=== PATIENT | male | born 1960 | race Caucasian/White ===

== ENCOUNTER 2017-10-27 15:08 | Emergency (ER) | payer MEDICARE ==
[2017-10-27] MEDS ORDERED: SODIUM CHLORIDE 0.9% 1,000 ML IV ONE (16:09)
--- NOTE | 2017-10-27 16:11 | ED Physician Documentation ---
History of Present Illness - Stated complaint Stated Complaint: COUGHING UP BLOOD - Chief complaint Chief Complaint: Resp - History obtained from History obtained from: Patient - History of Present Illness Timing: Today Pain level max: 0 Pain level now: 0 Improved by: rest Worsened by: coughing - Additonal information Additional information: Patient is a 57-year-old male who is a smoker who presents to the emergency department with a cough for the past several days, today during a coughing episode coughed up a small amount of bright red blood. States he feels slightly lightheaded. No chest pain. No palpitations. He is out of his Dulera at home and is only using rescue inhalers. Does have COPD. No blood thinners Review of Systems Ten Systems: 10 systems reviewed and negative Constitutional: denies: Fever, Chills Ears: denies: Ear pain Nose: denies: Rhinorrhea / runny nose, Congestion Throat: denies: Sore throat Cardiac: denies: Chest pain / pressure Respiratory: reports: Dyspnea, Cough, Hemoptysis, Wheezing GI: denies: Abdominal Pain, Nausea, Vomiting, Diarrhea Skin: denies: Rash Musculoskeletal: denies: Neck pain, Back pain Neurologic: denies: Headache PD PAST MEDICAL HISTORY - Past Medical History Cardiovascular: Hypertension Respiratory: Shortness of breath Other Past Medical History: Hodgins Disease - Past Surgical History Past Surgical History: Yes General: Splenectomy - Present Medications Home Medications: Ambulatory Orders Medication Instructions Recorded Confirmed Albuterol Sulf [Ventolin Hfa 2 puffs INH Q4HR PRN #1 inhaler 10/27/17 Inhaler] Mometasone/Formoterol [Dulera 100 DAILY 10/27/17 Mcg/5 Mcg Inhaler] predniSONE [Prednisone] 40 mg PO DAILY #10 tablet 10/27/17 - Allergies Allergies/Adverse Reactions: Allergies Allergy/AdvReac Type Severity Reaction Status Date / Time No Known Drug Allergies Allergy Verified 10/27/17 15:30 - Social History Does the pt smoke?: Yes Smoking Status: Current every day smoker Does the pt drink ETOH?: Yes ETOH Use: Beer, Liquor Does the pt have substance abuse?: No - Immunizations Immunizations are current?: Yes - POLST Patient has POLST: No PD ED PE NORMAL - Vitals Vital signs reviewed: Yes - General General: Alert and oriented X 3, No acute distress - HEENT HEENT: Moist mucous membranes - Neck Neck: Supple, no meningeal sign - Cardiac Cardiac: RRR, Strong equal pulses - Respiratory Respiratory: No respiratory distress, Other (wheezing B) - Abdomen Abdomen: Soft, Non tender, Non distended - Derm Derm: Warm and dry - Neuro Neuro: Alert and oriented X 3 - Psych Psych: Normal mood, Normal affect Results - Vitals Vitals: Vital Signs - 24 hr 10/27/17 10/27/17 10/27/17 15:30 16:30 17:22 Temperature 36.9 C 36.9 C Heart Rate 122 H 115 H 112 H Respiratory 20 10 L 18 Rate Blood Pressure 147/99 H 162/114 H O2 Saturation 94 97 Oxygen O2 Source Room air - EKG (time done) 1545 Rate: Rate (enter#) (117) Rhythm: Sinus tachycardia Valier: Normal Intervals: Normal CT QRS: LVH Ischemia: Normal ST segments - Labs Labs: Laboratory Tests 10/27/17 10/27/17 16:55 16:55 WBC 6.6 RBC 4.54 L Hgb 15.5 Hct 47.0 MCV 103.4 H MCH 34.2 H MCHC 33.1 RDW 13.4 Plt Count 307 MPV 7.1 L Neut # 3.9 Lymph # 1.6 [place] # 0.9 Eos # 0.1 Baso # 0.1 Absolute Nucleated RBC 0.01 Nucleated RBC % 0.1 Sodium 137 Potassium 3.7 Chloride 100 L Carbon Dioxide 25 Anion Gap 12.0 BUN 23 H Creatinine 0.8 Estimated GFR (MDRD) 99 Glucose 111 H Calcium 9.5 Total Bilirubin 0.7 AST 48 H ALT 39 Alkaline Phosphatase 61 Total Protein 7.8 Albumin 4.1 Globulin 3.7 Albumin/Globulin Ratio 1.1 Lipase 21 L - Rads (name of study) cxr Radiology: Prelim report reviewed, EMP read contemporaneously, See rad report ( Lungs are hyperexpanded in the craniocaudal measurement. Narrow anterior posterior measurement. No consolidation, pleural effusion or pneumothorax. Prominent pulmonary vasculature and lung markings, could be due to the narrow anterior posterior diameter of the chest. Mild interstitial pulmonary edema or infectious/inflammatory process not excluded. 7 mm left upper lobe pulmonary nodule. Follow-up chest x-ray or chest CT recommended. ) PD MEDICAL DECISION MAKING - ED course Complexity details: reviewed results, re-evaluated patient, considered differential, d/w patient ED course: Patient is a 57-year-old male who presents to the emergency department with what appears to be a COPD flare. He is well-appearing, nontoxic. Afebrile. Feels better after nebulizer treatment here. Does have a small pulmonary nodule and will have him follow-up with his doctor for repeat evaluation of this. Patient states understanding of the need for follow-up. Will place on steroids for home and see how he progresses. No hemoptysis in the emergency department. No anemia. Likely shear forces that cause the hemoptysis. Patient counseled regarding signs and symptoms for which I believe and urgent re -evaluation would be necessary. Patient with good understanding of and agreement to plan and is comfortable going home at this time This document was made in part using voice recognition software. While efforts are made to proofread this document, sound alike and grammatical errors may occur. Patient also counseled to stop smoking Departure - Departure Disposition: 01 Home, Self Care Clinical Impression: Hemoptysis, COPD exacerbation Condition: Good Instructions: ED COPD Flare, ED Hemoptysis Follow-Up: your,doctor in 1 week [Other] Prescriptions: Albuterol Sulf [Ventolin Hfa Inhaler] 2 puffs INH Q4HR PRN #1 inhaler PRN Reason: Wheezing predniSONE [Prednisone] 40 mg PO DAILY #10 tablet Comments: Follow up with your doctor for further care. Your xray and labs are normal for you tonight. Discharge Date/Time: 10/27/17 17:32
[2017-10-27] MEDS ORDERED: IPRATROPIUM/ALBUTEROL 3 ML NEB INH STA (16:16)
--- NOTE | 2017-10-27 16:48 | XRAY Report ---
EXAM: CHEST RADIOGRAPHY EXAM DATE: 10/27/2017 04:25 PM. CLINICAL HISTORY: Cough up blood. COMPARISON: None. TECHNIQUE: 2 views. FINDINGS: Lungs are hyperexpanded in the craniocaudal measurement. Narrow anterior posterior measurem ent. No consolidation, pleural effusion or pneumothorax. Prominent pulmonary vasculature and lung mar kings, could be due to the narrow anterior posterior diameter of the chest. Mild interstitial pulmona ry edema or infectious/inflammatory process not excluded. 7 mm left upper lobe pulmonary nodule. IMPRESSION: Lungs are hyperexpanded in the craniocaudal measurement. Narrow anterior posterior measu rement. No consolidation, pleural effusion or pneumothorax. Prominent pulmonary vasculature and lung markings, could be due to the narrow anterior posterior diameter of the chest. Mild interstitial pulm onary edema or infectious/inflammatory process not excluded. 7 mm left upper lobe pulmonary nodule. F ollow-up chest x-ray or chest CT recommended. [facility] Referring Provider Line: [phone] SITE ID: [id number]
[2017-10-27 17:00] LABS: BASOPHILS # (AUTO) 0.1 10^3/uL (0.0-0.1); BASOPHILS % (AUTO) 0.9 %; EOSINOPHILS # (AUTO) 0.1 10^3/uL (0.0-0.7); EOSINOPHILS % (AUTO) 1.5 %; HGB - HEMOGLOBIN 15.5 g/dL (14.0-18.0); LYMPHOCYTES # (AUTO) 1.6 10^3/uL (1.5-3.5); LYMPHOCYTES % (AUTO) 23.7 %; MEAN CORPUSCULAR HEMOGLOBIN 34.2 pg (27.0-31.0); MEAN CORPUSCULAR HGB CONC 33.1 g/dL (32.0-36.0); MEAN CORPUSCULAR VOLUME 103.4 fL (80.0-94.0); MEAN PLATELET VOLUME 7.1 fL (7.4-11.4); MONOCYTES # (AUTO) 0.9 10^3/uL (0.0-1.0); MONOCYTES % (AUTO) 14.2 %; NEUTROPHILS # (AUTO) 3.9 10^3/uL (1.5-6.6); NEUTROPHILS % (AUTO) 59.7 %; PLT - PLATELET COUNT 307 10^3/uL (130-450); RED BLOOD COUNT 4.54 10^6/uL (4.70-6.10); RED CELL DISTRIBUTION WIDTH 13.4 % (12.0-15.0); WHITE BLOOD COUNT 6.6 x10^3/uL (4.8-10.8)
[2017-10-27 17:13] LABS: ALBUMIN 4.1 g/dL (3.2-5.5); ALBUMIN/GLOBULIN RATIO 1.1 (1.0-2.2); BILIRUBIN,TOTAL 0.7 mg/dL (0.2-1.0); CALCIUM 9.5 mg/dL (8.5-10.3); CREATININE 0.8 mg/dL (0.6-1.2); TOTAL PROTEIN 7.8 g/dL (6.7-8.2)
[2017-10-27 17:25] VITALS: BP 162/114
== END 2017-10-27 17:32 | disposition home or self-care (01) ==
LOC: ED 15:08
DX: J44.1 Chronic obstructive pulmonary disease with (acute) exacerbation (principal); R04.2 Hemoptysis; I10 Essential (primary) hypertension; I71.2 Thoracic aortic aneurysm, without rupture; F17.200 Nicotine dependence, unspecified, uncomplicated
CPT/HCPCS: 36415; 71046; 80053; 83690; 85025; 93005; 94640; 99283; 99285; J7620

== ENCOUNTER 2018-09-08 09:34 | Emergency (ER) | payer MEDICARE ==
--- NOTE | 2018-09-08 09:43 | ED Physician Documentation ---
PD HPI CHEST PAIN - Stated complaint Stated Complaint: CHEST PX,FAST HB - Chief complaint Chief Complaint: Cardiac - History obtained from History obtained from: Patient - History of Present Illness Timing - onset: How many weeks ago Timing - onset during: Rest, Light activity. No: Exertion Timing - duration: Minutes Timing - details: Abrupt onset, Waxing and waning (he has had feeling of fast heart rate, not palpitations nor skips per se. This is most commonly while at rest. Lasts few minutes, then rest and improves on) Quality: Aching Location: Substernal, Left chest Radiation: No: Back Improved by: Other (getting up and walking around) Worsened by: Inspiration Associated symptoms: Shortness of air, Nausea, Feeling faint / dizzy, Palpitations Similar symptoms before: Has not had sx before Recently seen: Not recently seen Review of Systems Constitutional: denies: Fever, Chills Nose: denies: Rhinorrhea / runny nose, Congestion Respiratory: denies: Dyspnea, Cough GI: denies: Abdominal Pain, Nausea, Vomiting, Diarrhea, Bloody / black stool Skin: denies: Rash, Lesions Neurologic: denies: Altered mental status Psychiatric: denies: Depressed Endocrine: denies: Weight loss Immunocompromised: denies: Immunocompromised PD PAST MEDICAL HISTORY - Past Medical History Cardiovascular: Hypertension Respiratory: Shortness of breath - Past Surgical History Past Surgical History: Yes General: Splenectomy - Present Medications Home Medications: Ambulatory Orders Medication Instructions Recorded Confirmed Mometasone/Formoterol [Dulera 100 DAILY 10/27/17 Mcg/5 Mcg Inhaler] RX: Albuterol Sulf [Ventolin Hfa 2 puffs INH Q4HR PRN #1 inhaler 10/27/17 Inhaler] RX: predniSONE [Prednisone] 40 mg PO DAILY #10 tablet 10/27/17 RX: diltiaZEM CD [Cardizem Cd] 180 mg PO DAILY #30 capsule 09/08/18 - Allergies Allergies/Adverse Reactions: Allergies Allergy/AdvReac Type Severity Reaction Status Date / Time No Known Drug Allergies Allergy Verified 09/08/18 09:40 - Social History Does the pt smoke?: Yes Smoking Status: Current every day smoker Does the pt drink ETOH?: Yes Does the pt have substance abuse?: No - Immunizations Immunizations are current?: Yes - POLST Patient has POLST: No PD ED PE NORMAL - Vitals Vital signs reviewed: Yes - General General: Alert and oriented X 3, No acute distress, Well developed/nourished - HEENT HEENT: PERRL, Pharynx benign - Neck Neck: Supple, no meningeal sign, No adenopathy, No JVD - Cardiac Cardiac: No murmur, No rub. No: RRR (tachycardic wi) - Respiratory Respiratory: Clear bilaterally - Abdomen Abdomen: Soft, Non tender - Extremities Extremities: Other - Neuro Neuro: Alert and oriented X 3, No motor deficit, No sensory deficit Results - Vitals Vitals: Vital Signs - 24 hr 09/08/18 09/08/18 09/08/18 09:37 10:23 10:33 Heart Rate 125 H 158 H 109 H Respiratory 16 26 H 19 Rate Blood Pressure 185/125 H 141/85 H 156/85 H O2 Saturation 98 96 97 09/08/18 09/08/18 09/08/18 11:07 11:17 11:26 Heart Rate 158 H 105 H 104 H Respiratory 23 16 14 Rate Blood Pressure 126/79 142/80 H 139/78 H O2 Saturation 96 95 96 09/08/18 09/08/18 11:43 13:03 Heart Rate 107 H 102 H Respiratory 14 18 Rate Blood Pressure 148/85 H 143/98 H O2 Saturation 96 98 Oxygen O2 Source Room air - EKG (time done) initial Rate: Rate (enter#) (120s) Rhythm: Sinus tachycardia Carbon: Normal Intervals: Normal [place] QRS: Normal Ischemia: Normal ST segments. No: ST elevation c/w ischemia, ST depression second Rate: Rate (enter#) (170s) Rhythm: SVT Ischemia: Normal ST segments. No: ST elevation c/w ischemia, ST depression - Labs Labs: Laboratory Tests 09/08/18 09/08/18 09/08/18 09:45 09:45 09:45 WBC 5.5 RBC 4.52 L Hgb 16.3 Hct 47.5 MCV 105.1 H MCH 36.0 H MCHC 34.2 RDW 13.1 Plt Count 279 MPV 7.6 Neut # (Auto) 3.2 Lymph # (Auto) 1.3 L [place] # (Auto) 0.7 Eos # (Auto) 0.1 Baso # (Auto) 0.1 Absolute Nucleated RBC 0.01 Nucleated RBC % 0.1 Platelet Morphology RARE GIANT PLATELETS D-Dimer Sodium 136 Potassium 3.9 Chloride 99 L Carbon Dioxide 26 Anion Gap 11.0 BUN 12 Creatinine 0.7 Estimated GFR (MDRD) 115 Glucose 110 H Calcium 9.0 Magnesium 2.1 Total Bilirubin 1.0 AST 91 H ALT 74 H Alkaline Phosphatase 90 Troponin I B-Natriuretic Peptide Total Protein 8.4 H Albumin 4.3 Globulin 4.1 Albumin/Globulin Ratio 1.0 TSH 09/08/18 09/08/18 09/08/18 09:45 09:45 09:45 WBC RBC Hgb Hct MCV MCH MCHC RDW Plt Count MPV Neut # (Auto) Lymph # (Auto) [place] # (Auto) Eos # (Auto) Baso # (Auto) Absolute Nucleated RBC Nucleated RBC % Platelet Morphology D-Dimer Sodium Potassium Chloride Carbon Dioxide Anion Gap BUN Creatinine Estimated GFR (MDRD) Glucose Calcium Magnesium Total Bilirubin AST ALT Alkaline Phosphatase Troponin I < 0.04 B-Natriuretic Peptide 96 Total Protein Albumin Globulin Albumin/Globulin Ratio TSH 3.34 09/08/18 09:45 WBC RBC Hgb Hct MCV MCH MCHC RDW Plt Count MPV Neut # (Auto) Lymph # (Auto) [place] # (Auto) Eos # (Auto) Baso # (Auto) Absolute Nucleated RBC Nucleated RBC % Platelet Morphology D-Dimer < 200.0 L Sodium Potassium Chloride Carbon Dioxide Anion Gap BUN Creatinine Estimated GFR (MDRD) Glucose Calcium Magnesium Total Bilirubin AST ALT Alkaline Phosphatase Troponin I B-Natriuretic Peptide Total Protein Albumin Globulin Albumin/Globulin Ratio TSH PD MEDICAL DECISION MAKING - ED course Complexity details: re-evaluated patient (given adenosine without change. Diltiazem IV slowed heart rate and it returned to sinus tach then down to close to normal. Old chart showing sinus tach as prior heart rate readings. ), considered differential (resting tachycardia which changed to SVT in ED and he had symptoms. Ceiba better with sinus tachy. No change in SVT with adenosine, but did convert back to sinus tach with IV diltiazem. Heart rate slowed to near/ under 100 with repeat dosig. No significant process seen on testing. He says had had normal ECHO 1 1/2 years ago. To follow up with PMD enxt week.), d/w patient Departure - Departure Disposition: 01 Home, Self Care Clinical Impression: Paroxysmal SVT (supraventricular tachycardia), Sinus tachycardia Condition: Stable Record reviewed to determine appropriate education?: Yes Instructions: ED Tachycardia Pat PSVT Follow-Up: Wilfrid Allan MD [Primary Care Provider] - Prescriptions: RX: diltiaZEM CD [Cardizem Cd] 180 mg PO DAILY #30 capsule Comments: Stay well-hydrated with adequate fluids. Use diltiazem 180 mg daily. See if this controls her heart rate and prevents the episodes of the SVT that is presumably the episodes you are having. Follow-up with your primary care next week, call tomorrow for an appointment. Return if worsening symptoms or persistent fast heart rate that does not resolve after brief time at home. Discharge Date/Time: 09/08/18 13:05
[2018-09-08 10:09] LABS: BASOPHILS # (AUTO) 0.1 10^3/uL (0.0-0.1); BASOPHILS % (AUTO) 1.4 %; EOSINOPHILS # (AUTO) 0.1 10^3/uL (0.0-0.7); EOSINOPHILS % (AUTO) 1.8 %; HGB - HEMOGLOBIN 16.3 g/dL (14.0-18.0); LYMPHOCYTES # (AUTO) 1.3 10^3/uL (1.5-3.5); LYMPHOCYTES % (AUTO) 23.9 %; MEAN CORPUSCULAR HGB CONC 34.2 g/dL (32.0-36.0); MEAN CORPUSCULAR VOLUME 105.1 fL (80.0-94.0); MEAN PLATELET VOLUME 7.6 fL (7.4-11.4); MONOCYTES # (AUTO) 0.7 10^3/uL (0.0-1.0); MONOCYTES % (AUTO) 13.5 %; NEUTROPHILS # (AUTO) 3.2 10^3/uL (1.5-6.6); NEUTROPHILS % (AUTO) 59.4 %; PLT - PLATELET COUNT 279 10^3/uL (130-450); RED BLOOD COUNT 4.52 10^6/uL (4.70-6.10); RED CELL DISTRIBUTION WIDTH 13.1 % (12.0-15.0); WHITE BLOOD COUNT 5.5 x10^3/uL (4.8-10.8)
[2018-09-08] MEDS ORDERED: ADENOSINE 6 MG/2 ML VIAL IVP ONE (10:11)
[2018-09-08 10:12] LABS: ALBUMIN 4.3 g/dL (3.2-5.5); CREATININE 0.7 mg/dL (0.6-1.2); TOTAL PROTEIN 8.4 g/dL (6.7-8.2)
[2018-09-08] MEDS ORDERED: SODIUM CHLORIDE 0.9% 1,000 ML IV ONE ×3 (10:17→11:14)
[2018-09-08] MEDS ORDERED: ADENOSINE 6 MG/2 ML VIAL IVP STA ×2 (10:18)
[2018-09-08] MEDS ORDERED: diltiaZEM INJ 5 MG/ML VIAL IVP STA ×3 (10:18→11:14)
[2018-09-08] MEDS ORDERED: diltiaZEM INJ 5 MG/ML VIAL ONE (10:20)
[2018-09-08 10:32] LABS: PLATELET MORPHOLOGY RARE GIANT PLATELETS (NORMAL)
--- NOTE | 2018-09-08 10:42 | XRAY Report ---
Reason: dyspnea; palpitations Procedure Date: 09/08/2018 Accession Number: [id number] / [id number] Procedure: XR - Chest 1 View X-Ray CPT Code: 19374 FULL RESULT: EXAM: CHEST RADIOGRAPHY EXAM DATE: 09/08/2018 10:36 AM. CLINICAL HISTORY: Dyspnea; palpitations. COMPARISON: CHEST 2 VIEW 10/27/2017 4:24 PM. TECHNIQUE: 1 view. FINDINGS: Lungs/Pleura: Stable prominent interstitial markings. No focal opacities evident. No pleural effusion. No pneumothorax. Mediastinum: Within exam limitations, the cardiomediastinal contour is stable. Other: Unchanged appearance of S-shaped thoracic scoliosis, mild. IMPRESSION: Stable exam. [facility]
[2018-09-08] MEDS ORDERED: IOVERSOL 320 100 ML VIAL IVP ONE ×2 (11:48→12:25)
--- NOTE | 2018-09-08 12:43 | CT Report ---
Reason: fast heart rate and some dyspnea Procedure Date: 09/08/2018 Accession Number: [id number] / [id number] Procedure: CT - Chest W/ CPT Code: FULL RESULT: EXAM: CT CHEST EXAM DATE: 09/08/2018 12:20 PM. CLINICAL HISTORY: Fast heart rate and some dyspnea. COMPARISONS: Chest 1 view 09/08/2018 10:27 AM. TECHNIQUE: Routine helical CT imaging was performed through the chest. IV contrast: 72 mL Optiray 320. Reconstructions: Coronal and sagittal. In accordance with CT protocol optimization, one or more of the following dose reduction techniques were utilized for this exam: automated exposure control, adjustment of mA and/or KV based on patient size, or use of iterative reconstructive technique. FINDINGS: Lungs/Pleura: There is thickening of the left apical pleura with a mild amount of associated consolidation. At the right lung apex there is focal pleural thickening, less severe with slightly more pronounced associated consolidation, typical appearance for rounded atelectasis. In keeping with this, both jeremy are retracted upwards. No suspicious mass lesion is seen. There is no consolidation concerning for infectious disease. Lungs are hyperinflated. No pleural effusion or pneumothorax. Mediastinum: No mediastinal lymphadenopathy. No pericardial effusion. Mild concentric left ventricular hypertrophy. Bones: No aggressive osseous lesions. Visualized Abdomen: Unremarkable. Other: None. IMPRESSION: Apical pleural thickening and scant associated pulmonary consolidation, typically due to a scarred adhesion to the pleura. Configuration known as rounded atelectasis. No acute pulmonary disease is detected. [facility]
[2018-09-08 13:04] VITALS: BP 143/98
== END 2018-09-08 13:05 | disposition home or self-care (01) ==
LOC: ED 09:34
DX: I47.1 Supraventricular tachycardia (principal); I10 Essential (primary) hypertension; F17.200 Nicotine dependence, unspecified, uncomplicated
CPT/HCPCS: 36415; 71045; 71260; 80053; 83735; 83880; 84443; 84484; 85025; 85379; 93005; 96361; 96374; 96375; 96376; 99283; 99284; J0153; Q9967

== ENCOUNTER 2018-12-14 12:13 | Emergency (ER) | payer MEDICARE ==
[2018-12-14] MEDS ORDERED: oxyCODONE 5 MG TABLET PO STA (12:51)
[2018-12-14] MEDS ORDERED: THIAMINE 100 MG TABLET PO STA (12:51)
[2018-12-14] MEDS ORDERED: LORazepam 0.5 MG TABLET PO STA (12:51)
--- NOTE | 2018-12-14 12:57 | ED Physician Documentation ---
PD HPI Fall - Stated complaint Stated Complaint: GLF/HEAD AND NECK PX - Chief complaint Chief Complaint: Back Pain - History obtained from History obtained from: Patient - History of Present Illness Mechanism of injury: Other (This is a 58-year-old gentleman who about a week ago was lifting a heavy bag of birdseed out of his car, he slipped on the ice and did not fall but he got andrew very hard and since then has had severe neck and back pain as well as an occipital headache. He also complains of abdominal bloating, dry heaves every morning. Also right shoulder pain. He is an alcoholic, drinks heavily every day. He knows this is a problem and he and his have just committed to quitting drinking together. He does not have a history of alcoholic liver disease.) Review of Systems Ten Systems: 10 systems reviewed and negative Constitutional: denies: Fever, Chills Throat: denies: Dental pain / toothache, Sore throat Cardiac: denies: Chest pain / pressure, Palpitations Respiratory: denies: Dyspnea, Cough PD PAST MEDICAL HISTORY - Past Medical History Past Medical History: Yes Cardiovascular: Hypertension Respiratory: Shortness of breath Psych: Depression, Anxiety - Past Surgical History Past Surgical History: Yes General: Splenectomy Ortho: Spine surgery - Present Medications Home Medications: Ambulatory Orders Medication Instructions Recorded Confirmed Albuterol Sulf [Ventolin Hfa 2 puffs INH Q4HR PRN #1 inhaler 10/27/17 Inhaler] Mometasone/Formoterol [Dulera 100 DAILY 10/27/17 Mcg/5 Mcg Inhaler] predniSONE [Prednisone] 40 mg PO DAILY #10 tablet 10/27/17 diltiaZEM CD [Cardizem Cd] 180 mg PO DAILY #30 capsule 09/08/18 Lorazepam [Ativan] 1 mg PO TID PRN #10 tablet 12/14/18 oxyCODONE [Roxicodone] 5 mg PO Q4-6H PRN #15 tablet 12/14/18 - Allergies Allergies/Adverse Reactions: Allergies Allergy/AdvReac Type Severity Reaction Status Date / Time No Known Drug Allergies Allergy Verified 09/08/18 09:40 - Social History Does the pt smoke?: Yes Smoking Status: Current every day smoker Does the pt drink ETOH?: Yes ETOH Use: Beer, Liquor Does the pt have substance abuse?: No - Immunizations Immunizations are current?: Yes - POLST Patient has POLST: No PD ED PE NORMAL - Vitals Vital signs reviewed: Yes - General General: Alert and oriented X 3, No acute distress, Other (He is slightly shaky) - HEENT HEENT: PERRL, EOMI, Other (Sclera are somewhat icteric) - Neck Neck: Supple, no meningeal sign, Other (He is quite tender in the low and mid C- spine) - Cardiac Cardiac: RRR, No murmur - Respiratory Respiratory: No respiratory distress - Abdomen Abdomen: Soft, Non tender - Back Back: No CVA TTP, Other (Diffusely tender to the thoracic and upper lumbar spine) - Derm Derm: Normal color, Warm and dry - Extremities Extremities: Other (Right shoulder he is mildly tender laterally but he has good range of motion.) - Neuro Neuro: Alert and oriented X 3 Eye Opening: Spontaneous Motor: Obeys Commands Verbal: Oriented GCS Score: 15 - Psych Psych: Normal mood, Normal affect Results - Vitals Vitals: Vital Signs - 24 hr 12/14/18 12:17 Temperature 36.5 C Heart Rate 71 Respiratory 18 Rate Blood Pressure 118/103 H O2 Saturation 94 Oxygen O2 Source Room air - Labs Labs: Laboratory Tests 12/14/18 12/14/18 12/14/18 13:02 13:02 13:02 WBC 3.5 L RBC 4.39 L Hgb 15.9 Hct 45.7 MCV 104.2 H MCH 36.1 H MCHC 34.6 RDW 13.3 Plt Count 199 MPV 8.0 Neut # (Auto) 2.4 Lymph # (Auto) 0.7 L [place] # (Auto) 0.4 Eos # (Auto) 0.0 Baso # (Auto) 0.0 Absolute Nucleated RBC 0.00 Nucleated RBC % 0.1 PT 10.3 INR 0.9 Sodium 136 Potassium 4.1 Chloride 95 L Carbon Dioxide 23 Anion Gap 18.0 H Glucose 124 H Calcium 9.0 - Rads (name of study) CT Head/Cspine/Tspine/Lspine Radiology: EMP read contemporaneously (DJD, atrophy, Old L1 comp frx, NAD) PD MEDICAL DECISION MAKING - ED course ED course: This is a 58-year-old gentleman with history of alcohol abuse who presents with his spinal pain and headache after an injury about a week ago. Imaging was negative for acute process. He looks mildly jaundiced on exam. Unfortunately the lab analyzer was down and I do not have his liver enzymes but presume they will be elevated and he understands the need to quit drinking. He is slightly shaky here and this is treated with Ativan. Departure - Departure Disposition: 01 Home, Self Care Clinical Impression: Alcohol abuse Head injury Qualifiers: Encounter type: initial encounter Qualified Code(s): S09.90XA - Unspecified injury of head, initial encounter Injury of neck Qualifiers: Encounter type: initial encounter Qualified Code(s): S19.9XXA - Unspecified injury of neck, initial encounter Back pain Qualifiers: Back pain location: back pain in unspecified location Chronicity: acute Back pain laterality: midline Qualified Code(s): M54.9 - Dorsalgia, unspecified Condition: Good Record reviewed to determine appropriate education?: Yes Instructions: ED Low Back Pain Injury, Alcoholism, ED Alcohol Abuse, ED Cirrhosis Liver Prescriptions: Lorazepam [Ativan] 1 mg PO TID PRN #10 tablet PRN Reason: Anxiety oxyCODONE [Roxicodone] 5 mg PO Q4-6H PRN #15 tablet PRN Reason: Pain Comments: Call your doctor to arrange a follow-up appointment, make the next available appointment. In the interim, return anytime if worse or if new symptoms develop.
[2018-12-14 13:11] LABS: BASOPHILS % (AUTO) 1.4 %; EOSINOPHILS % (AUTO) 0.5 %; HGB - HEMOGLOBIN 15.9 g/dL (14.0-18.0); LYMPHOCYTES # (AUTO) 0.7 10^3/uL (1.5-3.5); LYMPHOCYTES % (AUTO) 19.7 %; MEAN CORPUSCULAR HEMOGLOBIN 36.1 pg (27.0-31.0); MEAN CORPUSCULAR HGB CONC 34.6 g/dL (32.0-36.0); MEAN CORPUSCULAR VOLUME 104.2 fL (80.0-94.0); MONOCYTES # (AUTO) 0.4 10^3/uL (0.0-1.0); MONOCYTES % (AUTO) 11.5 %; NEUTROPHILS # (AUTO) 2.4 10^3/uL (1.5-6.6); NEUTROPHILS % (AUTO) 66.9 %; PLT - PLATELET COUNT 199 10^3/uL (130-450); RED BLOOD COUNT 4.39 10^6/uL (4.70-6.10); RED CELL DISTRIBUTION WIDTH 13.3 % (12.0-15.0); WHITE BLOOD COUNT 3.5 x10^3/uL (4.8-10.8)
[2018-12-14 13:26] LABS: INR 0.9 (0.8-1.2); PT - PROTHROMBIN TIME 10.3 secs (9.9-12.6)
--- NOTE | 2018-12-14 13:27 | CT Report ---
Reason: back pain/neck pain/DAUGHERTY p fall Procedure Date: 12/14/2018 Accession Number: [id number] / [id number] Procedure: CT - HEAD WO CPT Code: FULL RESULT: EXAM: CT HEAD EXAM DATE: 12/14/2018 01:07 PM. CLINICAL HISTORY: Headache status post trauma during a fall. COMPARISON: None. TECHNIQUE: Multiaxial CT images were obtained from the foramen magnum to the vertex. Reformats: Sagittal and coronal. IV contrast: None. In accordance with CT protocol optimization, one or more of the following dose reduction techniques were utilized for this exam: automated exposure control, adjustment of mA and/or KV based on patient size, or use of iterative reconstructive technique. FINDINGS: Parenchyma: No intraparenchymal hemorrhage. No evidence of mass or mass-effect. Malloy-white differentiation is distinct. No structural anomaly. Extraaxial Spaces: Normal for age. No subdural or epidural collections identified. Ventricles: Normal in size and position. The extra axial CSF spaces are symmetrically prominent, compatible with age appropriate cortical atrophy. Sinuses and Orbits: Imaged paranasal sinuses, orbits and mastoids show no significant abnormality. Bones: No evidence of fracture or calvarial defect. Other: None. IMPRESSION: 1. Age-appropriate cortical atrophy. 2. No calvarial fracture or acute intracranial hemorrhage. [facility]
--- NOTE | 2018-12-14 13:41 | CT Report ---
Reason: back pain/neck pain/DAUGHERTY p fall Procedure Date: 12/14/2018 Accession Number: [id number] / [id number] Procedure: CT - CERVICAL SPINE WO CPT Code: FULL RESULT: EXAM: CT CERVICAL SPINE WITHOUT CONTRAST DATE: 12/14/2018 01:07 PM. HISTORY: Acute neck pain status post trauma during a fall. COMPARISONS: None. TECHNIQUE: Thin-section axial images were acquired of the cervical spine without contrast. Post-processing: Coronal and sagittal reformats. Other: None. In accordance with CT protocol optimization, one or more of the following dose reduction techniques were utilized for this exam: automated exposure control, adjustment of mA and/or KV based on patient size, or use of iterative reconstructive technique. FINDINGS: Alignment: Reversal of the cervical lordosis. No vertebral body subluxation. No scoliosis. Bones: Decreased bone mineralization. No fracture. No focal bone lesion. No congenital vertebral anomaly. Interspace Levels/Facets: Intervertebral disk space narrowing from C2-C3 through C6-C7, inclusive, with endplate sclerosis, subchondral cyst formation and marginal osteophyte formation, compatible with degenerative disk disease. Bilateral facet arthrosis at C2-C3 and facet arthrosis on the left at C3-C4. Musculature: Normal. No fatty atrophy. Other: The paravertebral and prevertebral soft tissues are unremarkable. Chronic atelectasis in both upper lobes. IMPRESSION: 1. No acute cervical spine fracture or subluxation. 2. Reversal of the normal cervical lordosis, degenerative. 3. Multilevel degenerative disk disease with upper cervical spine facet arthrosis. 4. Chronic bilateral upper lobe atelectasis. RADIA
--- NOTE | 2018-12-14 13:46 | CT Report ---
Reason: back pain/neck pain/DAUGHERTY p fall Procedure Date: 12/14/2018 Accession Number: [id number] / [id number] Procedure: CT - LUMBAR SPINE WO CPT Code: FULL RESULT: EXAM: CT LUMBAR SPINE WITHOUT CONTRAST EXAM DATE: 12/14/2018 01:22 PM. CLINICAL HISTORY: Back pain/neck pain/DAUGHERTY p fall. COMPARISONS: None. TECHNIQUE: Thin-section axial images were acquired of the lumbar spine from T12 to S1 without contrast. Post-processing: Coronal and sagittal reformats. Other: None. In accordance with CT protocol optimization, one or more of the following dose reduction techniques were utilized for this exam: automated exposure control, adjustment of mA and/or KV based on patient size, or use of iterative reconstructive technique. FINDINGS: Alignment: No scoliosis or spondylolisthesis. Bones: Lumbar vertebrae. Osteopenia. Prominent anterior compression of L4 with bridging osteophytes extending to L3 and very nearly to L5. No definite acute fracture or other bone lesion. Disk Levels/Facets: Marked disk space narrowing at L5-S1 with vacuum disk phenomena and degenerative changes. Mild disk space narrowing at L3-L4. Other disk spaces well preserved. Generalized degenerative changes. Musculature: Unremarkable. Other: Hypoattenuated liver parenchyma. IMPRESSION: 1. Old L4 compression fracture with bridging to L3 and to L5. 2. Degenerative changes most marked at L5-S1. 3. Fatty liver. RADIA
--- NOTE | 2018-12-14 13:51 | CT Report ---
Reason: back pain/neck pain/DAUGHERTY p fall Procedure Date: 12/14/2018 Accession Number: [id number] / [id number] Procedure: CT - THORACIC SPINE WO CPT Code: FULL RESULT: EXAM: CT THORACIC SPINE WITHOUT CONTRAST EXAM DATE: 12/14/2018 01:22 PM. CLINICAL HISTORY: Acute back pain status post trauma during the fall. COMPARISONS: None. TECHNIQUE: Thin-section axial images were acquired of the thoracic spine from C7 to L1 without contrast. Post-processing: Coronal and sagittal reformats. Other: None. In accordance with CT protocol optimization, one or more of the following dose reduction techniques were utilized for this exam: automated exposure control, adjustment of mA and/or KV based on patient size, or use of iterative reconstructive technique. FINDINGS: Alignment: Upper thoracic levoscoliosis and lower thoracic dextroscoliosis. No vertebral body subluxation. Normal thoracic kyphosis. Bones: Decreased bone mineralization. No fracture. No focal bone lesion. No congenital vertebral anomaly. Disk Levels/Facets: No significant degenerative disk disease or facet arthrosis. Musculature: Normal. No fatty atrophy. Other: Hepatic steatosis. Chronic bilateral upper lobe atelectasis. IMPRESSION: 1. No acute fracture or subluxation. 2. Scoliosis. 3. Decreased bone mineralization. 4. Hepatic steatosis and chronic bilateral upper lobe atelectasis. RADIA
--- NOTE | 2018-12-14 14:14 | XRAY Report ---
Reason: shoulder pain p trauma Procedure Date: 12/14/2018 Accession Number: [id number] / [id number] Procedure: XR - Shoulder 3 View RT CPT Code: FULL RESULT: EXAM: RIGHT SHOULDER RADIOGRAPHY EXAM DATE: 12/14/2018 01:30 PM. CLINICAL HISTORY: Shoulder pain p trauma. COMPARISON: CHEST 1 VIEW 09/08/2018 10:27 AM. TECHNIQUE: 4 views. FINDINGS: Bones: Normal. No fracture or bone lesion. Joints: The glenohumeral and acromioclavicular joints are normal. Soft tissues: The visualized hemithorax is unremarkable. No soft tissue swelling. IMPRESSION: Normal shoulder radiography. [facility]
[2018-12-14 14:26] VITALS: BP 164/86
[2018-12-14 15:27] LABS: ALBUMIN 4.1 g/dL (3.2-5.5); BILIRUBIN,TOTAL 0.8 mg/dL (0.2-1.0); CREATININE 0.7 mg/dL (0.6-1.2); TOTAL PROTEIN 8.4 g/dL (6.7-8.2)
== END 2018-12-14 14:26 | disposition home or self-care (01) ==
LOC: ED 12:13
DX: F10.10 Alcohol abuse, uncomplicated (principal); S09.90XA Unspecified injury of head, initial encounter; S19.9XXA Unspecified injury of neck, initial encounter; W18.49XA Other slipping, tripping and stumbling without falling, initial encounter; M54.9 Dorsalgia, unspecified; I10 Essential (primary) hypertension; F17.200 Nicotine dependence, unspecified, uncomplicated; Z90.81 Acquired absence of spleen
CPT/HCPCS: 36415; 70450; 72125; 72128; 72131; 73030; 80053; 83690; 85025; 85610; 99283; 99284; A9270; 80320

== ENCOUNTER 2019-08-18 09:39 | Day surgery (SDC) | payer MEDICARE ==
[~2019-08-18 09:39] MED LIST: BRIMONIDINE 0.2% OPHTH DROPS 5 ML ONE; BSS/LIDOCAINE/EPINEPHRINE 1 ML SYRINGE ONE; CYCLOPENTOLATE 1% OPHTH DROPS 2 ML ONE; KETOROLAC 0.45% OPHTH DROPS ONE; PHENYLEPHRINE 2.5% OPHTH 2 ML DROPS ONE; PROPARACAINE 0.5% OPHTH DROPS 15 ML ONE; TIMOLOL 0.5% OPHTH DROPS ONE; TRIAMCIN/MOXIFLOX OPHTHALMIC 0.6 ML VIAL IO ONE; VANCOMYCIN OPHTHALMI 8MG/0.8ML 8 MG/0.8 ML SYRINGE IO ONE
[2019-08-18] MEDS ORDERED: MIDAZOLAM 2 MG/2 ML VIAL IVP ONE (09:40)
[2019-08-18] MEDS ORDERED: fentaNYL 100 MCG/2 ML VIAL IVP ONE (09:40)
[2019-08-18] MEDS ORDERED: LACTATED RINGERS 500 ML IV ONE (09:49)
[2019-08-18] MEDS ORDERED: PROPARACAINE 0.5% OPHTH DROPS 15 ML RIGHTEYE ONE ×2 (10:00→10:44)
[2019-08-18] MEDS ORDERED: KETOROLAC 0.45% OPHTH DROPS RIGHTEYE ONE (10:00)
[2019-08-18] MEDS ORDERED: PHENYLEPHRINE 2.5% OPHTH 2 ML DROPS RIGHTEYE ONE (10:00)
[2019-08-18] MEDS ORDERED: CYCLOPENTOLATE 1% OPHTH DROPS 2 ML RIGHTEYE ONE (10:00)
--- NOTE | 2019-08-18 10:13 | ANESTHESIA ---
Pre-Anesthesia VS, & Labs - Diagnosis Right senile combined cataract - Procedure Right phaco with IOL implant Height 5 ft 11 in Body Mass Index 18.8 Home Medications and Allergies Home Medications: Ambulatory Orders diltiaZEM CD [Cardizem Cd] 360 mg PO DAILY 08/17/19 Mometasone/Formoterol [Dulera 100 Mcg/5 Mcg Inhaler] DAILY 10/27/17 diltiaZEM CD [Cardizem Cd] 360 mg PO DAILY 08/17/19 Allergies/Adverse Reactions: Allergies Allergy/AdvReac Type Severity Reaction Status Date / Time No Known Drug Allergies Allergy Verified 09/08/18 09:40 Anes History & Medical History - Medical History Cardiovascular: reports: Hypertension, Arrhythmia, Other Pulmonary: reports: COPD Gastrointestinal: reports: None Urinary: reports: None Musculoskeletal: reports: Osteoarthritis, Chronic back pain Endocrine/Autoimmune: reports: None Skin: reports: None Smoking Status: Current every day smoker - Surgical History General: Splenectomy Orthopedic: Spine surgery
[2019-08-18] MEDS ORDERED: EPINEPHrine 1 MG/ML AMP IVP ONE (10:42)
[2019-08-18] MEDS ORDERED: BRIMONIDINE 0.2% OPHTH DROPS 5 ML OPTH ONE (10:42)
[2019-08-18] MEDS ORDERED: CHONDR SULF/HYALURONATE SYRINGE IO ONE (10:43)
[2019-08-18] MEDS ORDERED: TIMOLOL 0.5% OPHTH DROPS OPTH ONE (10:43)
[2019-08-18] MEDS ORDERED: BSS/LIDOCAINE/EPINEPHRINE 1 ML SYRINGE IO ONE (10:44)
--- NOTE | 2019-08-18 10:47 | ANESTHESIA ---
Pre-Anesthesia VS, & Labs - Diagnosis R senile combined cataract - Procedure R extraction cataract w/IOL Vital Signs: Temp Pulse Resp BP Pulse Ox 37.0 C 118 H 16 104/88 H 94 08/18/19 09:52 08/18/19 09:52 08/18/19 09:52 08/18/19 09:52 08/18/19 09:52 Height 5 ft 10 in Weight (kg) 68 kg Body Mass Index 18.8 - NPO >8 hours Home Medications and Allergies Home Medications: Ambulatory Orders diltiaZEM CD [Cardizem Cd] 360 mg PO DAILY 08/17/19 diltiaZEM CD [Cardizem Cd] 360 mg PO DAILY 08/17/19 Allergies/Adverse Reactions: Allergies Allergy/AdvReac Type Severity Reaction Status Date / Time No Known Drug Allergies Allergy Verified 09/08/18 09:40 Anes History & Medical History - Anesthetic History Anesthesia Complications: reports: No previous complications Family history of Anesthesia Complications: Denies Family history of Malignant Hyperthermia: Denies - Medical History Cardiovascular: reports: Hypertension, Arrhythmia, Other Pulmonary: reports: COPD Gastrointestinal: reports: None Urinary: reports: None Musculoskeletal: reports: Osteoarthritis, Chronic back pain Endocrine/Autoimmune: reports: None Skin: reports: None Smoking Status: Current every day smoker - Surgical History General: Splenectomy Orthopedic: Spine surgery Exam General: Alert, Oriented x3, Cooperative Dental: WNL Mouth Openin Fingerbreadth Neck Mobility: Normal Mallampati classification: II Thyromental Distance: 4-6 cm Respiratory: Lungs clear, Normal breath sounds Cardiovascular: Regular rate Neurological: Normal speech Mental/Cognitive Status: Alert/Oriented X3, Normal for patient Cognitive Status: Within normal limits Plan Anesthesia Type: MAC Consent for Procedure(s) Verified and Reviewed: Yes Code Status: Attempt Resuscitation ASA classification: 2-Mild systemic disease Is this case an emergency?: No
[2019-08-18 11:12] VITALS: BP 119/81
--- NOTE | 2019-08-18 16:21 | OPERATIVE REPORT ---
DATE OF SERVICE: 08/18/2019 Physician: Mahesh Rosa MD PREOPERATIVE DIAGNOSIS: Visually significant cataract, right eye. This was his first cataract surgery. POSTOPERATIVE DIAGNOSIS: Visually significant cataract, right eye. This was his first cataract surgery. PROCEDURE: Phacoemulsification with posterior chamber intraocular lens implant, right eye. SURGEON: Mahesh Rosa MD ANESTHESIA: Monitored anesthesia care. COMPLICATIONS: None. OPERATIVE INDICATIONS: This is a 59-year-old man with progressive vision loss in the right eye due to 2-3+ nuclear sclerotic and 2+ posterior subcapsular cataract. Best corrected visual acuity was 20/100 with glare to 20/800 in the right eye. Indications for surgery are overall decrease in vision, difficulty seeing words on a computer screen, difficulty reading, difficulty seeing words, closed caption or game scores on TV, difficulty seeing street signs, difficulty driving in low light or at night, difficulty driving at night because of headlights from other vehicles, and difficulty with glare or bright lights in any situation. He was consented at length concerning risks and benefits of cataract surgery, after which he expressed a desire to proceed with surgery. OPERATIVE PROCEDURE: The patient was taken to OR #3 and placed under monitored anesthesia care. Surgical timeout was conducted confirming correct patient, correct procedure, and correct surgical site. He was given topical anesthesia, and prepped and draped in the usual sterile fashion. The eye was entered at the 12 and 9 o'clock positions. Intracameral Shugarcaine was injected into the anterior chamber, followed by Viscoat. A continuous-tear curvilinear capsulorrhexis was performed. The nucleus was hydrodissected and phacoemulsified. The cortex was evacuated using automated infusion and aspiration. Provisc was injected in the capsular bag, and a 15.5 diopter intraocular lens inserted in the bag. Approximately 0.25 mL of a mixture of triamcinolone and moxifloxacin was injected transsclerally into the vitreous. An additional 0.55 mL of a mixture of triamcinolone, moxifloxacin and vancomycin was injected subconjunctivally in the superior quadrant for infection and inflammation prophylaxis. I and A was used to evacuate the viscoelastic materials. The eye was inflated to physiologic pressure using balanced salt solution and found to be watertight. The patient was taken from the operating room in good condition and given postoperative instructions. TD: 08/18/2019 10:56 MISHEL
== END 2019-08-18 09:40 | disposition home or self-care (01) ==
LOC: SDS 09:39
PROVIDERS: ATTEND Ophthalmology
PROC: 08RJ3JZ Replacement of Right Lens with Synthetic Substitute, Percutaneous Approach (ICD-10-PCS; principal; 2019-08-18 11:00)
DX: H25.811 Combined forms of age-related cataract, right eye (principal); I10 Essential (primary) hypertension; F17.200 Nicotine dependence, unspecified, uncomplicated; Z85.71 Personal history of Hodgkin lymphoma; Z79.899 Other long term (current) drug therapy; Z86.79 Personal history of other diseases of the circulatory system
CPT/HCPCS: 66984; A9270; J3490; V2632

== ENCOUNTER 2019-11-03 06:38 | Day surgery (SDC) | payer MEDICARE ==
[~2019-11-03 06:38] MED LIST changes: -BRIMONIDINE 0.2% OPHTH DROPS 5 ML ONE; -BSS/LIDOCAINE/EPINEPHRINE 1 ML SYRINGE ONE; -TIMOLOL 0.5% OPHTH DROPS ONE; -TRIAMCIN/MOXIFLOX OPHTHALMIC 0.6 ML VIAL IO ONE; -VANCOMYCIN OPHTHALMI 8MG/0.8ML 8 MG/0.8 ML SYRINGE IO ONE
[2019-11-03] MEDS ORDERED: MIDAZOLAM 2 MG/2 ML VIAL IVP ONE (06:39)
[2019-11-03] MEDS ORDERED: LACTATED RINGERS 500 ML IV ONE (06:48)
[2019-11-03] MEDS ORDERED: TIMOLOL 0.5% OPHTH DROPS ONE (06:53)
[2019-11-03] MEDS ORDERED: BRIMONIDINE 0.2% OPHTH DROPS 5 ML ONE (06:53)
[2019-11-03] MEDS ORDERED: VANCOMYCIN OPHTHALMI 8MG/0.8ML 8 MG/0.8 ML SYRINGE IO ONE (06:53)
[2019-11-03] MEDS ORDERED: BSS/LIDOCAINE/EPINEPHRINE 1 ML SYRINGE ONE (06:53)
[2019-11-03] MEDS ORDERED: TRIAMCIN/MOXIFLOX OPHTHALMIC 0.6 ML VIAL IO ONE (06:53)
[2019-11-03] MEDS ORDERED: PHENYLEPHRINE 2.5% OPHTH 2 ML DROPS LEFTEYE ONE (07:10)
[2019-11-03] MEDS ORDERED: KETOROLAC 0.45% OPHTH DROPS LEFTEYE ONE (07:10)
[2019-11-03] MEDS ORDERED: PROPARACAINE 0.5% OPHTH DROPS 15 ML LEFTEYE ONE ×2 (07:10→08:02)
[2019-11-03] MEDS ORDERED: CYCLOPENTOLATE 1% OPHTH DROPS 2 ML LEFTEYE ONE (07:10)
--- NOTE | 2019-11-03 07:53 | ANESTHESIA ---
Pre-Anesthesia VS, & Labs - Diagnosis left combined cataract - Procedure left cataract extraction with IOL Vital Signs: Temp Pulse Resp BP Pulse Ox 36.7 C 110 H 16 117/86 H 95 11/03/19 06:48 11/03/19 06:48 11/03/19 06:48 11/03/19 06:48 11/03/19 06:48 Height 5 ft 10 in Weight (kg) 68.5 kg Body Mass Index 18.8 - NPO >8 hours Home Medications and Allergies diltiaZEM CD [Cardizem Cd] 360 mg PO DAILY 08/17/19 Allergies/Adverse Reactions: Allergies Allergy/AdvReac Type Severity Reaction Status Date / Time No Known Drug Allergies Allergy Verified 11/02/19 15:35 Anes History & Medical History - Anesthetic History Anesthesia Complications: reports: No previous complications Family history of Anesthesia Complications: Denies Family history of Malignant Hyperthermia: Denies - Medical History Cardiovascular: reports: Arrhythmia Pulmonary: reports: COPD Gastrointestinal: reports: None Urinary: reports: None Musculoskeletal: reports: Osteoarthritis, Chronic back pain Endocrine/Autoimmune: reports: None Skin: reports: None Smoking Status: Current every day smoker - Surgical History General: Splenectomy Orthopedic: Spine surgery Exam General: Alert Dental: WNL, Dentures full Upper, Dentures full Lower Neck Mobility: Normal Thyromental Distance: greater than 6 cm Respiratory: Lungs clear Cardiovascular: Regular rate, Normal S1, Normal S2 Plan Anesthesia Type: MAC Consent for Procedure(s) Verified and Reviewed: Yes Code Status: Attempt Resuscitation ASA classification: 2-Mild systemic disease Is this case an emergency?: No
[2019-11-03] MEDS ORDERED: EPINEPHrine 1 MG/ML AMP IVP ONE (08:08)
[2019-11-03] MEDS ORDERED: TIMOLOL 0.5% OPHTH DROPS OPTH ONE (08:08)
[2019-11-03] MEDS ORDERED: BRIMONIDINE 0.2% OPHTH DROPS 5 ML OPTH ONE (08:08)
[2019-11-03] MEDS ORDERED: CHONDR SULF/HYALURONATE SYRINGE IO ONE (08:08)
[2019-11-03] MEDS ORDERED: BSS/LIDOCAINE/EPINEPHRINE 1 ML SYRINGE IO ONE (08:09)
[2019-11-03 08:29] VITALS: BP 125/77
--- NOTE | 2019-11-03 09:17 | OPERATIVE REPORT ---
DATE OF SERVICE: 11/03/2019 Physician: Mahesh Rosa MD PREOPERATIVE DIAGNOSIS: Visually significant cataract, left eye. Cataract surgery was performed on the right eye on 08/18/2019. POSTOPERATIVE DIAGNOSIS: Visually significant cataract, left eye. Cataract surgery was performed on the right eye on 08/18/2019. PROCEDURE: Phacoemulsification with posterior chamber intraocular lens implant, left eye. SURGEON: Maehsh Rosa MD ANESTHESIA: Monitored anesthesia care. COMPLICATIONS: None. OPERATIVE INDICATIONS: This is a 59-year-old man with progressive vision loss in the left eye due to 2+ nuclear sclerotic and trace posterior subcapsular cataract. Best corrected visual acuity was 20/20 with glare to 20/40 in the left eye. He was consented at length concerning risks and benefits of cataract surgery, after which he expressed a desire to proceed with surgery. OPERATIVE PROCEDURE: Patient was taken to OR #3 and placed under monitored anesthesia care and surgical timeout was conducted confirming correct patient, correct procedure, and correct surgical site. He was given topical anesthesia, and prepped and draped in the usual sterile fashion. The eye was entered at the 6 and 3 o'clock positions. Intracameral Shugarcaine was injected into the anterior chamber, followed by Viscoat. A continuous-tear curvilinear capsulorrhexis was performed. The nucleus was hydrodissected and phacoemulsified. The cortex was evacuated using automated infusion and aspiration. Provisc was injected in the capsular bag, and a 15.0 diopter intraocular lens inserted in the bag. I&A was used to evacuate the viscoelastic materials. The eye was inflated to physiologic pressure using balanced salt solution and found to be watertight. Approximately 0.25 mL of a mixture of triamcinolone and moxifloxacin was injected transsclerally into the vitreous into the inferotemporal quadrant. An additional 0.55 mL of a mixture of triamcinolone, moxifloxacin and vancomycin was injected subconjunctivally in the superior quadrant for infection and inflammation prophylaxis. Wound integrity was checked with Weck-Pippa sponges. Patient was taken from the operating room in good condition and given postoperative instructions. TD: 11/03/2019 08:34 MISHEL
== END 2019-11-03 06:39 | disposition home or self-care (01) ==
LOC: SDS 06:38
PROVIDERS: ATTEND Ophthalmology
PROC: 08RK3JZ Replacement of Left Lens with Synthetic Substitute, Percutaneous Approach (ICD-10-PCS; principal; 2019-11-03 08:00)
DX: H25.812 Combined forms of age-related cataract, left eye (principal); I10 Essential (primary) hypertension; I49.9 Cardiac arrhythmia, unspecified; J44.9 Chronic obstructive pulmonary disease, unspecified; F17.200 Nicotine dependence, unspecified, uncomplicated; Z98.41 Cataract extraction status, right eye; Z96.1 Presence of intraocular lens; Z72.89 Other problems related to lifestyle; Z85.71 Personal history of Hodgkin lymphoma; Z79.51 Long term (current) use of inhaled steroids; Z90.49 Acquired absence of other specified parts of digestive tract
CPT/HCPCS: 66984; A9270; J3490; V2632

== ENCOUNTER 2020-10-02 10:42 | Inpatient (IN) | payer MEDICARE ==
--- NOTE | 2020-10-02 12:17 | ED Physician Documentation ---
History of Present Illness - Stated complaint Stated Complaint: SOA/WEAKNESS - Chief complaint Chief Complaint: Resp - History obtained from History obtained from: Patient - History of Present Illness Timing: How many weeks ago (5) - Additonal information Additional information: 60-year-old male presents the emergency department with dyspnea for 4 to 5 weeks time. He reports that he is 1/2 pack/day tobacco user and does have a history of COPD as well as hypertension. For about 5 weeks he has been progressively dyspneic with any exertion as well as orthopnea. He is also developed a cough where he is bringing up lots of fluids. He denies any fevers or leg swelling. He denies chest pain or pressure pressure. He states that about 1 month ago he was on his riding lawnmower and leaning over to his left to picker feeder a rock. As he was leaning over he felt a crack in his left lower rib that has also caused worsening dyspnea, however the worsening dyspnea began PRIOR to this event On initial presentation this gentleman is very tachypneic with respiratory rate in the high 20s. He has normal saturations on room air. It should be noted that he does have a history of Hodgkin's lymphoma nearly 40 years ago. 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 meds: ventolin, cartia XT Review of Systems Constitutional: denies: Fever, Chills Eyes: reports: Reviewed and negative Ears: reports: Reviewed and negative Nose: reports: Reviewed and negative Cardiac: reports: Palpitations. denies: Pedal edema, Calf pain Respiratory: reports: Dyspnea, Cough. denies: Hemoptysis GI: reports: Abdominal Swelling. denies: Nausea, Vomiting, Constipation, Diarrhea, Hematemesis : denies: Dysuria, Frequency Skin: reports: Reviewed and negative Musculoskeletal: reports: Reviewed and negative PD PAST MEDICAL HISTORY - Past Medical History Past Medical History: Yes Cardiovascular: Arrhythmia Respiratory: COPD Neuro: None Endocrine/Autoimmune: None GI: None : None HEENT: None Psych: Depression, Anxiety Musculoskeletal: Osteoarthritis, Chronic back pain Derm: None - Past Surgical History Past Surgical History: Yes General: Splenectomy Ortho: Spine surgery - Present Medications Home Medications: Ambulatory Orders Medication Instructions Recorded Confirmed Albuterol Sulf [Ventolin Hfa 2 puffs INH Q4HR PRN #1 inhaler 10/27/17 10/02/20 Inhaler] diltiaZEM CD [Cardizem Cd] 360 mg PO DAILY 08/17/19 10/02/20 - Allergies Allergies/Adverse Reactions: Allergies Allergy/AdvReac Type Severity Reaction Status Date / Time No Known Drug Allergies Allergy Verified 10/02/20 10:51 - Social History Does the pt smoke?: Yes Smoking Status: Current every day smoker Does the pt drink ETOH?: Yes Does the pt have substance abuse?: No - Immunizations Immunizations are current?: Yes - POLST Patient has POLST: No PD ED PE EXPANDED - General General: Alert, Other (significant dyspnea) - Neck Neck: Supple w/out meningeal sx. No: Adenopathy, No tenderness - Cardiac Cardiac: Tachy, Regular Rhythm, Murmur Present, Cap refill < 2 sec, Other (Weak 1+ pulses radial and pedal bilaterally) - Respiratory Respiratory: Labored, Retractions, Other (Globalized crackles. Diminished breath sounds left lower lung guerrero). No: Wheezing - Abdomen Abdomen: Normal Bowel sounds, Distended. No: Tender to palpation - Derm Derm: Normal color. No: Pale, Rash - Neuro Neuro: Alert and Oriented X 3, CNII-XII intact, Normal gait, Normal finger nose, Normal speech - GCS Eye Opening: Spontaneous Motor: Obeys Commands Verbal: Oriented Total: 15 Results - Vitals Vitals: Vital Signs - 24 hr 10/02/20 10/02/20 10/02/20 10:49 13:02 13:11 Temperature 36.8 C Heart Rate 111 H 114 H Respiratory 22 21 Rate Blood Pressure 129/87 H 146/92 H O2 Saturation 98 98 10/02/20 15:46 Temperature Heart Rate 111 H Respiratory 20 Rate Blood Pressure 133/90 H O2 Saturation 97 Oxygen O2 Source Room air - EKG (time done) 1104 Rate: Rate (enter#) (121) Rhythm: Sinus tachycardia Intervals: Normal UT Ischemia: Non specific changes Compare to prior EKG: Unchanged from prior EKG Computer interpretation: Agree with computer - Labs Labs: Laboratory Tests 10/02/20 10/02/20 10/02/20 12:50 12:50 12:50 WBC 19.2 H RBC 4.57 L Hgb 17.3 Hct 49.9 MCV 109.2 H MCH 37.9 H MCHC 34.7 RDW 14.1 Plt Count 451 H MPV 9.3 Neut # (Auto) 16.0 H Lymph # (Auto) 1.5 Kerr # (Auto) 1.4 H Eos # (Auto) 0.1 Baso # (Auto) 0.1 Absolute Nucleated RBC 0.00 Nucleated RBC % 0.0 PT INR Sodium 132 L Potassium 4.9 Chloride 90 L Carbon Dioxide 29 Anion Gap 13.0 BUN 10 Creatinine 0.8 Estimated GFR (MDRD) 98 Glucose 112 H Lactic Acid Calcium 8.6 Total Bilirubin 1.4 H AST 134 H ALT 58 Alkaline Phosphatase 266 H Troponin I High Sens 23.2 H* B-Natriuretic Peptide Total Protein 7.2 Albumin 3.0 L Globulin 4.2 Albumin/Globulin Ratio 0.7 L Lipase 23 Nasal Adenovirus (PCR) Nasal B. parapertussis DNA (PCR) Nasal Coronavir 229E PCR Nasal Coronavir HKU1 PCR Nasal Coronavir NL63 PCR Nasal Coronavir OC43 PCR Nasal Enterovir/Rhinovir PCR Nasal Influenza B PCR Nasal Influenza A PCR Nasal Parainfluen 1 PCR Nasal Parainfluen 2 PCR Nasal Parainfluen 3 PCR Nasal Parainfluen 4 PCR Nasal RSV (PCR) Nasal B.pertussis DNA PCR Nasal C.pneumoniae (PCR) Bebeto Human Metapneumo PCR Nasal M.pneumoniae (PCR) Nasal SARS-CoV-2 (PCR) 10/02/20 10/02/20 10/02/20 12:50 12:50 12:50 WBC RBC Hgb Hct MCV MCH MCHC RDW Plt Count MPV Neut # (Auto) Lymph # (Auto) Kerr # (Auto) Eos # (Auto) Baso # (Auto) Absolute Nucleated RBC Nucleated RBC % PT 12.9 H INR 1.2 Sodium Potassium Chloride Carbon Dioxide Anion Gap BUN Creatinine Estimated GFR (MDRD) Glucose Lactic Acid 2.9 H Calcium Total Bilirubin AST ALT Alkaline Phosphatase Troponin I High Sens B-Natriuretic Peptide 239 H Total Protein Albumin Globulin Albumin/Globulin Ratio Lipase Nasal Adenovirus (PCR) Nasal B. parapertussis DNA (PCR) Nasal Coronavir 229E PCR Nasal Coronavir HKU1 PCR Nasal Coronavir NL63 PCR Nasal Coronavir OC43 PCR Nasal Enterovir/Rhinovir PCR Nasal Influenza B PCR Nasal Influenza A PCR Nasal Parainfluen 1 PCR Nasal Parainfluen 2 PCR Nasal Parainfluen 3 PCR Nasal Parainfluen 4 PCR Nasal RSV (PCR) Nasal B.pertussis DNA PCR Nasal C.pneumoniae (PCR) Bebeto Human Metapneumo PCR Nasal M.pneumoniae (PCR) Nasal SARS-CoV-2 (PCR) 10/02/20 10/02/20 13:05 14:17 WBC RBC Hgb Hct MCV MCH MCHC RDW Plt Count MPV Neut # (Auto) Lymph # (Auto) Kerr # (Auto) Eos # (Auto) Baso # (Auto) Absolute Nucleated RBC Nucleated RBC % PT INR Sodium Potassium Chloride Carbon Dioxide Anion Gap BUN Creatinine Estimated GFR (MDRD) Glucose Lactic Acid Calcium Total Bilirubin AST ALT Alkaline Phosphatase Troponin I High Sens 21.8 H* B-Natriuretic Peptide Total Protein Albumin Globulin Albumin/Globulin Ratio Lipase Nasal Adenovirus (PCR) NOT DETECTED Nasal B. parapertussis DNA (PCR) NOT DETECTED Nasal Coronavir 229E PCR NOT DETECTED Nasal Coronavir HKU1 PCR NOT DETECTED Nasal Coronavir NL63 PCR NOT DETECTED Nasal Coronavir OC43 PCR NOT DETECTED Nasal Enterovir/Rhinovir PCR NOT DETECTED Nasal Influenza B PCR NOT DETECTED Nasal Influenza A PCR NOT DETECTED Nasal Parainfluen 1 PCR NOT DETECTED Nasal Parainfluen 2 PCR NOT DETECTED Nasal Parainfluen 3 PCR NOT DETECTED Nasal Parainfluen 4 PCR NOT DETECTED Nasal RSV (PCR) NOT DETECTED Nasal B.pertussis DNA PCR NOT DETECTED Nasal C.pneumoniae (PCR) NOT DETECTED Bebeto Human Metapneumo PCR NOT DETECTED Nasal M.pneumoniae (PCR) NOT DETECTED Nasal SARS-CoV-2 (PCR) NOT DETECTED - Rads (name of study) CXR Radiology: Final report received (Nondisplaced left lateral 10th rib fracture. Costophrenic angle blunting bilaterally suggestive of minimal effusions. Mildly increased vascularity is present suggestive of edema.) CT angio pulm Radiology: Final report received (Acute pulmonary emboli identified in the basilar segments of the bilateral lower lobe proximal segmental branches the right middle lobe and likely small proximal segmental pulmonary emboli in the bilateral upper lobes. ), See rad report CT abd Radiology: Final report received (Small moderate amount of scattered free fluid seen throughout the abdomen. Colonic diverticulosis without diverticulitis. Hepatic steatosis. 1.5 cm right hepatic lobe hypodensity which is incompletely characterized), See rad report PD MEDICAL DECISION MAKING - ED course Complexity details: reviewed results, re-evaluated patient, considered differential, d/w patient ED course: 60-year-old male presents the emergency department with 5 weeks of dyspnea and orthopnea. On exam he is quite tachypneic and labored. However he does have normal saturations on room air. He is noted to be tachycardic with a heart rate in the 120s sinus. He is taking diltiazem daily but has very poor rate control. X-ray of his lungs does show a nondisplaced left lower lateral rib fracture but no pneumothorax. There are small bilateral pleural effusions as well as vascular findings suggestive of pulmonary edema. 1400: Noted marked leukocytosis. Blood cultures are pending however we will also order a CT angio of the chest as well as abdomen pelvis. He does have a mildly elevated lactic acid but is normotensive and does not present as septic shock however sepsis is not ruled out. We will start with broad-spectrum antibiotics including vancomycin and Zosyn and change as necessary. 1535: CT pulmonary angiogram does confirm that this gentleman has multiple bilateral pulmonary emboli. There are also a number of associated incidental findings within the lungs and abdominal CT. - 1615: I have spoken on the phone with [facility] Physician Dr. Kia Lu. We have discussed the case; he is reaching out to [facility] to determine if a echocardiogram is indicated at this time for further evaluation and treatment of the pulmonary embolus 1630: I have spoken with Dr. Lu. He has reached out to the [facility] on-call personnel and payroll technician Dr. Quirino Mendosa. I am as the CT pulmonary angio does not show signs of acute right heart strain and the patient has had symptoms for nearly 5 weeks and urgent echo in the next 48 hours is not likely indicated. This case was discussed with the daytime hospitalist Dr. Xavier who agrees to bring the patient in for further evaluation and treatment of his pulmonary embolus Departure - Departure Disposition: 66 [facility] DC/Xfer Clinical Impression: Pulmonary embolus Qualifiers: Pulmonary embolism type: multiple subsegmental (without acute cor pulmonale) Qualified Code(s): I26.94 - Multiple subsegmental pulmonary emboli without acute cor pulmonale
--- NOTE | 2020-10-02 12:22 | XRAY Report ---
PROCEDURE: Ribs w/PA Chest LT INDICATIONS: left rib pain TECHNIQUE: 3 views of the left ribs were acquired, along with a single view chest. COMPARISON: Chest x-ray 09/08/2018 FINDINGS: Surgical changes and devices: None. Bones and chest wall: Nondisplaced inferior lateral left 10th rib fracture.. No suspicious bony lesi ons. Overlying soft tissues appear unremarkable. Lungs and pleura: There is blunting of the costophrenic angles bilaterally. Mild increased vascularit y is present. Mediastinum: Mediastinal contours appear normal. Heart size is normal. IMPRESSION: Nondisplaced lateral left 10th rib fracture. Costophrenic angle blunting bilaterally suggestive of minimal effusions. Mild increased vascularity i s present suggestive of edema. Reviewed by: Nora Grady MD on 10/02/2020 12:21 PM PST Approved by: Nora Grady MD on 10/02/2020 12:21 PM PST Station ID: [id number]
[2020-10-02 13:00] LABS: BASOPHILS # (AUTO) 0.1 10^3/uL (0.0-0.1); BASOPHILS % (AUTO) 0.7 %; EOSINOPHILS # (AUTO) 0.1 10^3/uL (0.0-0.7); EOSINOPHILS % (AUTO) 0.4 %; HGB - HEMOGLOBIN 17.3 g/dL (14.0-18.0); LYMPHOCYTES # (AUTO) 1.5 10^3/uL (1.5-3.5); LYMPHOCYTES % (AUTO) 7.8 %; MEAN CORPUSCULAR HEMOGLOBIN 37.9 pg (27.0-31.0); MEAN CORPUSCULAR HGB CONC 34.7 g/dL (32.0-36.0); MEAN CORPUSCULAR VOLUME 109.2 fL (80.0-94.0); MEAN PLATELET VOLUME 9.3 fL (7.4-11.4); MONOCYTES # (AUTO) 1.4 10^3/uL (0.0-1.0); MONOCYTES % (AUTO) 7.2 %; NEUTROPHILS % (AUTO) 83.3 %; PLT - PLATELET COUNT 451 10^3/uL (130-450); RED BLOOD COUNT 4.57 10^6/uL (4.70-6.10); RED CELL DISTRIBUTION WIDTH 14.1 % (12.0-15.0); WHITE BLOOD COUNT 19.2 x10^3/uL (4.8-10.8)
[2020-10-02] MEDS ORDERED: diltiaZEM INJ 5 MG/ML VIAL IVP STA (13:05)
[2020-10-02 13:14] LABS: ALBUMIN/GLOBULIN RATIO 0.7 (1.0-2.2); BILIRUBIN,TOTAL 1.4 mg/dL (0.2-1.0); CALCIUM 8.6 mg/dL (8.5-10.3); CREATININE 0.8 mg/dL (0.6-1.2); TOTAL PROTEIN 7.2 g/dL (6.7-8.2)
[2020-10-02] MEDS ORDERED: IOVERSOL 320 100 ML VIAL IVP ONE ×2 (14:06→14:54)
[2020-10-02] MEDS ORDERED: VANCOMYCIN INJ 1.25 GM in SODIUM CHLORIDE 0.9% 500 ML IV STA (14:06)
[2020-10-02] MEDS ORDERED: PIPERACILLIN/TAZOBACTAM 3.375 GM in SODIUM CHLORIDE 0.9% MINIBAG 100 ML IV STA (14:06)
[2020-10-02 14:16] LABS: C. PNEUMONIAE- RESP PCR PANEL NOT DETECTED
[2020-10-02] MEDS ORDERED: VANCOMYCIN INJ 1 GM, VANCOMYCIN INJ 500 MG in SODIUM CHLORIDE 0.9% 500 ML IV STA (14:37)
--- NOTE | 2020-10-02 15:16 | CT Report ---
PROCEDURE: ANGIO CHEST W/WO INDICATIONS: dyspnea CONTRAST: IV CONTRAST: Optiray 320 ml: 100 PO CONTRAST: *NO PO CONTRAST TECHNIQUE: After the administration of intravenous contrast, 2 mm thick sections acquired from the pulmonary api lorena to the posterior costophrenic angles. 3-dimensional maximum intensity projection (MIP) coronal a nd sagittal reformats were then acquired through the thorax. For radiation dose reduction, the follow ing was used: automated exposure control, adjustment of mA and/or kV according to patient size. COMPARISON: Chest radiograph from earlier same day and CT chest dated 09/08/2018 FINDINGS: Image quality: Excellent. Pulmonary arteries: Pulmonary arteries are normal in size. There are bilateral pulmonary emboli invo lving the basal segments of the bilateral lower lobes as well as the proximal segmental branch of the right middle lobe and likely small proximal segmental pulmonary emboli in the bilateral upper lobes. Lungs and pleura: No pneumothorax. Small bilateral pleural effusions. Associated compressive atelecta sis which is most pronounced in the bilateral lung bases and medial left upper lobe. Stable appearanc e of biapical scarring and pleural thickening. New patchy groundglass opacities involving the anterio r right upper lobe and right apex. No septal thickening or nodularity. Central and peripheral airways are patent. Mediastinum: Heart size is normal, without pericardial effusion. Mild atherosclerotic calcifications of the coronary arteries. No mediastinal or hilar adenopathy. Thoracic aorta is normal in caliber and enhancement. Esophagus is normal in caliber, with small hiatal hernia. Bones and chest wall: No suspicious bony lesions. No acute compression fractures. Ribs and thoracic spine appear intact throughout. The thyroid is unremarkable. No axillary or supraclavicular adenop athy. Abdomen: Visualized upper abdominal solid organs appear unremarkable in the early arterial phase of enhancement. Surgical clips in the upper midline abdomen. IMPRESSION: 1. Acute pulmonary emboli identified in the basilar segments of the bilateral lower lobes, proximal s egmental branch of the right middle lobe, and likely small proximal segmental pulmonary emboli in the bilateral upper lobes. No acute right-sided heart strain. 2. Patchy groundglass opacities involving the right upper lobe and right apex which may represent an infectious versus inflammatory process although early pulmonary infarct not excluded. Underlying neop lastic process is also not excluded. Follow-up imaging recommended. 3. Small bilateral pleural effusions with associated compressive atelectasis. 4. Stable biapical pleural thickening/scarring. Findings discussed with Dr. Baird of the ER at 1510 hrs. Reviewed by: Zackary Luna MD on 10/02/2020 3:15 PM PST Approved by: Zackary Luna MD on 10/02/2020 3:15 PM PST Station ID: [id number]
--- NOTE | 2020-10-02 15:27 | CT Report ---
PROCEDURE: Abdomen/Pelvis W INDICATIONS: elevated lactic acid CONTRAST: IV CONTRAST: Optiray 320 ml: 100 PO CONTRAST: *NO PO CONTRAST TECHNIQUE: After the administration of contrast, 5 mm thick sections acquired from the diaphragms to the sym physis. 5 mm thick coronal and sagittal reformats were acquired. For radiation dose reduction, the following was used: automated exposure control, adjustment of mA and/or kV according to patient size . COMPARISON: None. FINDINGS: Image quality: Excellent. ABDOMEN: Lung bases: Small bilateral pleural effusions with associated compressive atelectasis. The lungs are better evaluated on dedicated CT of the chest from earlier same day. Please see separate report for d etails. Solid organs: Diffuse hepatic steatosis with a 1.5 cm right hepatic lobe hypodensity, incompletely ch aracterized. This may represent a cyst versus hemangioma. 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 Free fluid is noted within the splenic fossa. Gallbladder demonstrates mild circumferent ial wall thickening likely related to surrounding free fluid. Multiple surgical clips are noted in th e midline upper abdomen, this is visualized in the daphne hepatis. Biliary system is non dilated. Pa ncreas enhances normally. No adrenal nodules. Kidneys demonstrate normal size and enhancement, with out hydronephrosis. Peritoneum and bowel: Minimal circumferential bowel wall thickening noted near segments adjacent to free fluid. Otherwise, visualized bowel loops demonstrate normal wall thickness and caliber. No free fluid or air. Scattered colonic diverticulosis without acute diverticulitis. Nodes and vessels: No retroperitoneal or mesenteric adenopathy by size criteria. Aorta and inferior vena cava are normal in size. Atherosclerotic calcifications of the abdominal aorta without aneurysm al dilatation. Miscellaneous: No ventral hernias. PELVIS: Genitourinary: Bladder wall thickness is normal. Miscellaneous: No inguinal hernias or adenopathy. Bones: No suspicious bony lesions. Age indeterminate but likely chronic compression fracture deform ity of the L4 vertebral body. Multilevel spondylitic changes throughout the imaged spine but most pro nounced at L5-S1. No acute vertebral body compression fractures. IMPRESSION: 1. Small-moderate amount of scattered free fluid seen throughout the abdomen. No organized fluid erica ection. 2. Colonic diverticulosis without acute diverticulitis. 3. Minimal circumferential wall thickening of the gallbladder favored secondary to adjacent ascites. Similar findings are noted on several segments of bowel demonstrating minimal circumferential wall th ickening. Acute inflammatory/infectious process not excluded if clinically appropriate. 4. Status post splenectomy with fluid noted in the splenic fossa. 5. Hepatic steatosis. 6. A 1.5 cm right hepatic lobe hypodensity which is incompletely characterized. This may represent a cyst versus hemangioma. Recommend further characterization with outpatient CT or MRI (liver mass prot ocol). 7. Small bilateral pleural effusions and compressive atelectasis. Please see separate report for dedi cated imaging of the chest. Reviewed by: Zackary Luna MD on 10/02/2020 3:25 PM PST Approved by: Zackary Luna MD on 10/02/2020 3:25 PM PST Station ID: [id number]
[2020-10-02 16:23] LABS: INR 1.2 (0.8-1.2); PT - PROTHROMBIN TIME 12.9 secs (9.9-12.6)
[2020-10-02] MEDS ORDERED: ENOXAPARIN 60 MG/0.6 ML SYRINGE SUBQ STA (16:32)
[2020-10-02] MEDS ORDERED: ACETAMINOPHEN 325 MG TABLET PO PRN (16:56)
[2020-10-02] MEDS ORDERED: SODIUM CHLORIDE FLUSH 0.9% 10 ML SYRINGE IVP PRN (16:56)
[2020-10-02] MEDS ORDERED: ONDANSETRON 4 MG/2 ML VIAL IVP PRN (16:56)
[2020-10-02] MEDS ORDERED: MORPHINE 2 MG/ML CARPUJECT IVP PRN (16:56)
[2020-10-02] MEDS ORDERED: diltiaZEM CD 180 MG CAPSULE PO SCH (17:03)
--- NOTE | 2020-10-02 17:24 | HISTORY & PHYSICAL EXAMINATION ---
Chief Complaint - Chief Complaint Chief Complaint: SOB History of Present Illness - Admitted From Admitted From:: ER - History Obtained From Records Reviewed: [employer] History obtained from: pt - History of Present Illness HPI Comment/Other: This a 60-year-old male With a past medical history significant for hypertension, COPD, currently smoker, remote Hodgkin lymphoma With radiation and splenectomy who presents the emergency department complain of very dyspnea for 4 to 5 weeks. pt report he had progressively shortness of breath for 4 to 5 weeks with exertion as well as orthopnea. He denies fever, chill but report cough with lots of clear fluid sputum. pt also report he had abdominal pain in the before. He denies chest pain or pressure pressure. He report about 1 month ago when he was on his riding lawnmower and leaning over to his left to clam picker a rock, he felt a crack in his left lower rib which caused his left inferior chest pain, and pain worsening with dyspnea. CXR reveals nondisplaced left lateral 10th rib fracture, Costophrenic angle blunting bilaterally suggestive of minimal effusions and Mildly increased vascularity is present for suggestive of edema. CTA reveals Acute pulmonary emboli identified in the basilar segments of the bilateral lower lobe proximal segmental branches the right middle lobe and likely small proximal segmental pulmonary emboli in the bilateral upper lobes, patchy groundglass opacities involving the right upper lobe and right apex which may represent infectious versus inflammatory process although early Pulmonary infarction not excluded, Neoplastic process is also not excluded. We do not have ECHO study until next week. ER provider talked with [employer], CT pulmonary angio does not show signs of acute right heart strain and the patient has had symptoms for nearly 5 weeks and urgent echo in the next 48 hours is not likely indicated. CT of abdomen/pelvis several segments of the bowel demonstrating minimal circumferential wall thickness, acute inflammation or infection process not excluded. Routine laboratory tests that show elevated WBC at 19, lactic acid of 2.9, elevated liver enzyme, slightly elevated BNP, Slightly elevated troponin but flat. In the ER patient is Afebrile, normative BP, tachypneic with respiratory rate in the high 22s but He has normal saturations on room air And tachycardia around 110-115. Discussed the care goal with the patient, patient requests full code History - Past Medical History Cardiovascular: reports: Arrhythmia Respiratory: reports: COPD Neuro: reports: None Endocrine/Autoimmune: reports: None GI: reports: None : reports: None HEENT: reports: None Psych: reports: Depression, Anxiety Musculoskeletal: reports: Osteoarthritis, Chronic back pain Derm: reports: None MRSA Hx?: No - Past Surgical History General: reports: Splenectomy Ortho: reports: Spine surgery - Family & Social History Family History: Mother: Alive and Well, Father: Alive and Well Family History Comment/Other: Patient reported his father is 86, no major medical issue, still alive. His mother is age 86, no major medical issue as well. Social History Notes: Patient reported he still smoking, he Reported he drive beer every day but without alcohol withdrawal. he denies drug issue. He was and no children. - POLST Patient has POLST: No Meds/Allgy - Home Medications Home Medications: Ambulatory Orders Medication Instructions Recorded Confirmed diltiaZEM CD [Cardizem Cd] 180 mg PO BID 08/17/19 10/02/20 Albuterol Sulf [Ventolin Hfa 2 puffs INH Q6HR PRN 10/02/20 10/02/20 Inhaler] - Allergies Allergies/Adverse Reactions: Allergies Allergy/AdvReac Type Severity Reaction Status Date / Time No Known Drug Allergies Allergy Verified 10/02/20 10:51 Review of Systems - Constitutional Constitutional: denies: Fatigue, Fever, Chills, Malaise, Weakness, Poor appetite, Diaphoresis, Night sweats - Eyes Eyes: denies: Pain, Blurred vision, Field loss, Vision loss, Dipolpia - Ears, Nose & Throat Ears, Nose & Throat: denies: Ear pain, Vertigo, Nosebleeds, Sore throat, Bleed ing gums - Cardiovascular Cariovascular: reports: Exertional dyspnea, Decr. exercise tolerance, Orthopnea. denies: Irregular heart rate, Palpitations, Chest pain, Edema, Lightheadedness, Syncope - Respiratory Respiratory: reports: Cough, Sputum production, Orthopnea, SOB at rest, SOB with exertion. denies: Wheezing, Snoring, Hemoptysis, Apnea, Stridor - Gastrointestinal Gastrointestinal: reports: Abdominal pain. denies: Abdominal distention, Constipation, Diarrhea, Change in bowel habits, Rectal bleeding, Black stools, Bloody stools, Nausea, Vomiting, Nate blood emesis, Coffee grounds emesis - Genitourinary Genitourinary: denies: Dysuria, Urgency, Incontinence - Musculoskeletal Musculoskeletal: denies: Muscle pain, Muscle aches, Limited range of motion, Muscle weakness - Integumentary Integumentary: denies: Rash, Lesions, Lumps - Neurological Neurological: denies: General weakness, Focal weakness, Headache, Dizziness, Numbness, Memory problems, Pre-existing deficit, Abnormal gait, Seizures, Incoordination, Slurred speech - Psychiatric Psychiatric: denies: Depression, Suicidal, Delusions - Endocrine Endocrine: denies: Polyuria, Polyphagia - Hematologic/Lymphatic Hematologic/Lymphatic: denies: Anemia, Petechiae, Blood clots Exam - Vital Signs Vital Signs: Vital Signs x48h Temp Pulse Resp BP Pulse Ox 10/02/20 15:46 111 H 20 133/90 H 97 10/02/20 13:11 114 H 21 146/92 H 98 10/02/20 13:02 98 10/02/20 10:49 36.8 C 111 H 22 129/87 H - Physical Exam General Appearance: positive: Alert, Moderate distress. negative: Lethargic Eyes Bilateral: positive: Normal inspection, PERRL, No lid inflammation ENT: positive: ENT inspection nml, No signs of dehydration. negative: Purulent nasal drainage Neck: positive: Nml inspection, Thyroid nml, Trachea midline. negative: Thyromegaly, Tracheal deviation Respiratory: positive: Chest non-tender, Rhonchi. negative: No respiratory distress, Breath sounds nml, Wheezes, Rales Cardiovascular: positive: Regular rate & rhythm, No murmur, Tachycardia. negative: Bradycardia, Systolic murmur, Diastolic murmur Peripheral Pulses: positive: 2+ Abdomen: positive: Non-tender, No distention, Abnml bowel sounds (mild reduced bowel sound). negative: Tenderness, Guarding, Rebound Back: positive: Nml inspection. negative: CVA tenderness (R), CVA tenderness (L) Skin: positive: Color nml, Warm, Dry. negative: Cyanosis, Diaphoresis, Pallor Extremities: positive: Non-tender, Nml appearance. negative: Calf tenderness Neurologic/Psychiatric: positive: Oriented x3, Motor nml, Sensation nml, Mood/affect nml. negative: Weakness, Sensory loss, Facial droop, Slurred/abnml speech, Depressed mood/affect Conclusion/Plan - Problem List (1) Pulmonary embolus Conclusion/Plan: Patient is very shortness of breathing, CTA show bilaterally pulmonary embolism without right heart strain. Patient has a history of remote Hodgkin lymphoma, Patient is currently Cigarette smoke. Patient has no bilateral lower extremity pain or tenderness or erythema. Plan: Lovenox twice daily, telemetry, vital signs monitor closely. Qualifiers: Pulmonary embolism type: multiple subsegmental (without acute cor pulmonale) Qualified Code(s): I26.94 - Multiple subsegmental pulmonary emboli without acute cor pulmonale (2) SOB (shortness of breath) Conclusion/Plan: Patient presents very short of breathing, Patient has PE, Patient has a history of COPD, current smoker, CTA also indicated pt has pneumonia, and Mild pulmonary congestion. Unfortunately we do not have echo study for patient until next week. At this point we will treat the PE with Lovenox, Zosyn for patient pneumonia, breathing treatment for patient COPD and add prednisone for his COPD, As needed morphine for SOB. (3) Pneumonia Conclusion/Plan: Patient present early shortness of breathing, patient has a cough and sputum, patient has WBC 19 and elevated lactic acid 2.9, CTA indicated patient has pneumonia or infection. at this time we will treat the patient pneumonia With antibiotics Zosyn, patient's blood culture is pending. (4) Abdominal pain Conclusion/Plan: Patient reported he had abdominal pain in the home, CT of abdomen show possible infection/Inflammation and a colon wall thickening, Patient has elevated WBC and elevated lactic acid. We will treat with Zosyn and prednisone, Pain control (5) Elevated liver enzymes Conclusion/Plan: Patient report he drinks beer every day but denies alcohol withdrawal. Advised patient quitt alcohol, and vitamin B-1 was given to patient. In CAT scan of the abdomen show 1.5 cm right hepatic lobe hypodensity which may represent cyst versus hemoangioma. recommend pt for out-pt CT or MRI of liver ma protocol for further feature. 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 patient take Cardizem in his home medication, EKG show sinus tachycardia, Patient denies chest pain, troponin slightly elevated but flat and reduced. 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 (7) COPD (chronic obstructive pulmonary disease) Conclusion/Plan: Patient has a history of COPD and continue cigarette smoking. Lung sounds show diminished with bilaterally crackles. We will give patient breathing treatment, and low dosage prednisone. Patient decline nicotine patch now (8) Rib fracture Conclusion/Plan: Patient report he has injury when he deeply leaned down on his left side to clam picker a stone. chest X-ray show patient has Nondisplaced laterally left 10th rib fracture, Clinically patient report left low lateral chest wall pain, With a small bump In palpitation. Order iincentive spirometer, Encourage patient practice with, Pain control. - Lab Results Fish Bones: 10/03/20 04:15 10/03/20 04:15 Core Measures - Anticipated LOS I expect patient to be DC'd or transferred within 96 hours.: Yes - Stroke - Rehab Assessment Rehab services assessment to be ordered?: Yes - AMI - Statin at Admit Aspirin Prescribed on Admit: Yes
[2020-10-02] MEDS: IPRATROPIUM/ALBUTEROL 3 ML NEB INH PRN (18:30)
[2020-10-02] MEDS: oxyCODONE 5 MG TABLET PO PRN ×2 (18:41→22:47)
[2020-10-02] MEDS: SODIUM CHLORIDE FLUSH 0.9% 10 ML SYRINGE IVP SCH (18:42)
[2020-10-02] MEDS: PIPERACILLIN/TAZOBACTAM 3.375 GM in SODIUM CHLORIDE 0.9% MINIBAG 100 ML IV SCH (18:42)
--- NOTE | 2020-10-02 18:49 | PHARMACY PROGRESS NOTE ---
- Best Possible Medication History Admit Date and Time: 10/02/20 1656 Processed by: Pharmacy Medication History completed: Yes Patient Interview: Completed Secondary Source(s): Physician records, Pharmacy records, Insurance records (PATIENT INTERVIEWED BY MOSS BLEACHER. PATIENT ABLE TO CONFIRM HOME MEDICATIONS. ) As the person ultimately responsible for medication therapy, providers are able to order a medication from an existing home medication list in [facility] via the "Reconcile Routine" prior to Confirmation of that medication by ict customer support officer. Such practice is discouraged except when the physician, in their clinical judgment, deems that a medical need exists for a medication without regard to previous use.
[2020-10-02] MEDS: PRENATAL VITAMIN TABLET PO SCH (19:10)
[2020-10-02] MEDS: THIAMINE 100 MG TABLET PO SCH (19:10)
[2020-10-02] MEDS: SODIUM CHLORIDE 0.9% 250 ML IV PRN (19:12)
[2020-10-02] MEDS: predniSONE 20 MG TABLET PO SCH (20:19)
[2020-10-02] MEDS: ENOXAPARIN 60 MG/0.6 ML SYRINGE SUBQ SCH (22:47)
[2020-10-02] MEDS: LEVALBUTEROL 1.25 MG/3 ML NEB INH PRN ×2 (22:51→23:05)
[2020-10-02 22:54] LABS: GLUCOSE, URINE (UA) NEGATIVE (NEGATIVE); KETONES,URINE (UA) NEGATIVE (NEGATIVE); LEUKOCYTE ESTERASE, URINE NEGATIVE (NEGATIVE); NITRITE,URINE NEGATIVE (NEGATIVE); OCCULT BLOOD,URINE NEGATIVE (NEGATIVE); PH,URINE 6.5 PH (5.0-7.5); PROTEIN,URINE NEGATIVE (NEGATIVE); UROBILINOGEN,URINE 1 (NORMAL) E.U./dL (NORMAL)
[2020-10-02 23:01] LABS: BILIRUBIN,URINE NEGATIVE (NEGATIVE); CLARITY,URINE CLEAR (CLEAR); ICTOTEST,URINE NEGATIVE
[2020-10-03] MEDS: SODIUM CHLORIDE FLUSH 0.9% 10 ML SYRINGE IVP SCH ×3 (00:55→16:15)
[2020-10-03] MEDS: PIPERACILLIN/TAZOBACTAM 3.375 GM in SODIUM CHLORIDE 0.9% MINIBAG 100 ML IV SCH ×3 (03:00→18:55)
[2020-10-03] MEDS: oxyCODONE 5 MG TABLET PO PRN ×4 (03:10→21:08)
[2020-10-03] MEDS: LEVALBUTEROL 1.25 MG/3 ML NEB INH PRN ×2 (03:24→07:34)
[2020-10-03 04:42] LABS: BASOPHILS % (AUTO) 0.2 %; HGB - HEMOGLOBIN 15.4 g/dL (14.0-18.0); LYMPHOCYTES # (AUTO) 0.7 10^3/uL (1.5-3.5); MEAN CORPUSCULAR HEMOGLOBIN 37.6 pg (27.0-31.0); MEAN CORPUSCULAR HGB CONC 34.7 g/dL (32.0-36.0); MEAN CORPUSCULAR VOLUME 108.3 fL (80.0-94.0); MEAN PLATELET VOLUME 9.3 fL (7.4-11.4); MONOCYTES # (AUTO) 0.6 10^3/uL (0.0-1.0); MONOCYTES % (AUTO) 3.4 %; NEUTROPHILS # (AUTO) 15.8 10^3/uL (1.5-6.6); NEUTROPHILS % (AUTO) 91.8 %; PLT - PLATELET COUNT 449 10^3/uL (130-450); RED CELL DISTRIBUTION WIDTH 14.1 % (12.0-15.0); WHITE BLOOD COUNT 17.2 x10^3/uL (4.8-10.8)
[2020-10-03 04:58] LABS: ALBUMIN 2.6 g/dL (3.2-5.5); ALBUMIN/GLOBULIN RATIO 0.7 (1.0-2.2); BILIRUBIN,TOTAL 1.2 mg/dL (0.2-1.0); CALCIUM 8.3 mg/dL (8.5-10.3); CREATININE 0.7 mg/dL (0.6-1.2); TOTAL PROTEIN 6.3 g/dL (6.7-8.2)
[2020-10-03] MEDS: PANTOPRAZOLE 40 MG TABLET PO SCH (06:49)
[2020-10-03] MEDS: PRENATAL VITAMIN TABLET PO SCH (08:03)
[2020-10-03] MEDS: predniSONE 20 MG TABLET PO SCH (08:04)
[2020-10-03] MEDS: ENOXAPARIN 60 MG/0.6 ML SYRINGE SUBQ SCH ×2 (09:25→21:08)
[2020-10-03] MEDS: diltiaZEM CD 180 MG CAPSULE PO SCH ×2 (09:25→21:08)
[2020-10-03] MEDS: THIAMINE 100 MG TABLET PO SCH (09:26)
[2020-10-03] MEDS: IPRATROPIUM/ALBUTEROL 3 ML NEB INH PRN ×2 (13:01→18:23)
--- NOTE | 2020-10-03 13:48 | PROVIDER PROGRESS NOTE ---
Assessment/Plan - Problem List (1) Pulmonary embolus Qualifiers: Pulmonary embolism type: multiple subsegmental (without acute cor pulmonale) Qualified Code(s): I26.94 - Multiple subsegmental pulmonary emboli without acute cor pulmonale Assessment/Plan: 10/03 Patient feels better, significantly improved for patient's difficulty breathing. We will continue treat with Lovenox twice daily. will check if DVT by US Patient is very shortness of breathing, CTA show bilaterally pulmonary embolism without right heart strain. Patient has a history of remote Hodgkin lymphoma, Patient is currently Cigarette smoke. Patient has no bilateral lower extremity pain or tenderness or erythema. Plan: Lovenox twice daily, telemetry, vital signs monitor closely. (2) SOB (shortness of breath) Conclusion/Plan: 10/03 significantly improved, We will continue treated patient's PE, COPD and pneumonia, Add morphine as needed Patient presents very short of breathing, Patient has PE, Patient has a history of COPD, current smoker, CTA also indicated pt has pneumonia, and Mild pulmonary congestion. Unfortunately we do not have echo study for patient until next week. At this point we will treat the PE with Lovenox, Zosyn for patient pneumonia, breathing treatment for patient COPD and add prednisone for his COPD, As needed morphine for SOB. (3) Pneumonia Conclusion/Plan: 10/03 Patient has no fever, Blood culture is pending, Patient's WBC is slightly trended down although pt was given steroid for his COPD. continue antibiotics. Patient present early shortness of breathing, patient has a cough and sputum, patient has WBC 19 and elevated lactic acid 2.9, CTA indicated patient has pneumonia or infection. at this time we will treat the patient pneumonia With antibiotics Zosyn, patient's blood culture is pending. (4) Abdominal pain Conclusion/Plan: 10/03, improved for abdominal pain.Continue antibiotics and Prednisone, pain c ontrol. Patient reported he had abdominal pain in the home, CT of abdomen show possible infection/Inflammation and a colon wall thickening, Patient has elevated WBC and elevated lactic acid. We will treat with Zosyn and prednisone, Pain control (5) Elevated liver enzymes Conclusion/Plan: 10/03 Liver enzyme is trended down, improved. 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 Patient report he drinks beer every day but denies alcohol withdrawal. Advised patient quitt alcohol, and vitamin B-1 was given to patient. In CAT scan of the abdomen show 1.5 cm right hepatic lobe hypodensity which may represent cyst versus hemoangioma. recommend pt for out-pt CT or MRI of liver mass protocol for further feature. 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 HR is trended down to around 100, Continue home medication Cardizem, continue youth nutritional monitor. Patient has history of tachycardia, Patient has PE now plus infection. patient take Cardizem in his home medication, EKG show sinus tachycardia, Patient denies chest pain, troponin slightly elevated but flat and reduced. will resume patient home medication, Continue treat PE and infection, color television console monitor. (7) COPD (chronic obstructive pulmonary disease) Conclusion/Plan: 10/03 Improved, continue breathing treatment and Prednisone. Patient has a history of COPD and continue cigarette smoking. Lung sounds show diminished with bilaterally crackles. We will give patient breathing treatment, and low dosage prednisone. Patient decline nicotine patch now (8) Rib fracture Conclusion/Plan: 10/03 Continue pain control, incentive spirometer. Patient report he has injury when he deeply leaned down on his left side to scrap picker a stone. chest X-ray show patient has Nondisplaced laterally left 10th rib fracture, Clinically patient report left low lateral chest wall pain, With a small bump In palpitation. Order iincentive spirometer, Encourage patient practice with, Pain control. - Current Meds Current Meds: Current Medications Generic Name Dose Route Start Last Admin Trade Name Freq PRN Reason Stop Dose Admin Albuterol/Ipratropium 3 ml 10/02/20 17:08 10/03/20 13:01 Ipratropium/Albuterol 3 Ml Neb INH 3 ml RTQID PRN Administration Shortness of Air/Wheezing Diltiazem HCl 180 mg 10/03/20 09:00 10/03/20 09:25 Diltiazem Cd 180 Mg Capsule PO 180 mg BID TRACE Administration Enoxaparin Sodium 60 mg 10/02/20 23:00 10/03/20 09:25 Enoxaparin 60 Mg/0.6 Ml Syringe SUBQ 60 mg BID TRACE Administration Piperacillin Sod/Tazobactam 100 mls @ 25 mls/hr 10/02/20 19:00 10/03/20 11:04 Sod 3.375 gm/ Sodium Chloride IV 25 mls/hr Q8H TRACE Administration Sodium Chloride 250 mls @ 0 mls/hr 10/02/20 19:06 10/03/20 11:05 Normal Saline 0.9% IV 20 mls/hr Q24H PRN Infusion TKO RATE TKO Levalbuterol HCl 1.25 mg 10/02/20 17:07 10/03/20 07:34 Levalbuterol 1.25 Mg/3 Ml Neb INH 1.25 mg Q4H PRN Administration Shortness of Air/Wheezing Morphine Sulfate 2 mg 10/02/20 16:56 10/03/20 08:04 Morphine 2 Mg/Ml Carpuject IVP 2 mg Q2HR PRN Administration Pain 8 to 10 Oxycodone HCl 5 mg 10/02/20 16:56 10/03/20 13:04 Oxycodone 5 Mg Tablet PO 5 mg Q4HR PRN Administration Pain 5 to 7 Pantoprazole Sodium 40 mg 10/03/20 07:00 10/03/20 06:49 Pantoprazole 40 Mg Tablet PO 40 mg QDAC TRACE Administration Prednisone 40 mg 10/02/20 19:20 10/03/20 08:04 Prednisone 20 Mg Tablet PO 40 mg DAILYWM TRACE Administration Multivit/Folic Acid/Iron 1 tab 10/02/20 19:00 10/03/20 08:03 Vitamin Tablet PO 1 tab DAILYWM TRACE Administration Sodium Chloride 10 ml 10/02/20 17:00 10/03/20 08:06 Sodium Chloride Flush 0.9% 10 Ml Syringe IVP 10 ml 0100,0900,1700 TRACE Administration Thiamine HCl 100 mg 10/02/20 19:01 10/03/20 09:26 Thiamine 100 Mg Tablet PO 100 mg DAILY TRACE Administration - Lab Result Fish Bone Diagrams: 10/03/20 04:15 10/03/20 04:15 - Additional Planning My Orders: My Active Orders 10/02/20 Dinner Regular Diet [DIET] 10/02/20 16:56 Telemetry- [RC] Q4HR Acetaminophen [Tylenol] 650 mg PO Q4HR PRN Morphine Inj (Carpuject) [Morphine (Carpuject)] 2 mg IVP Q2HR PRN Ondansetron Inj [Zofran Inj] 4 mg IVP Q6HR PRN Sodium Chloride Flush 0.9% [Normal Saline Flush 0.9%] 10 ml IVP PRN PRN oxyCODONE [Roxicodone] 5 mg PO Q4HR PRN 10/02/20 16:59 Activity Orders [RC] Q2HR IO [RC] IOSHIFT Initiate Bowel Care Protocol [RC] .protocol Initiate Line Care Protocol [RC] QSHIFT Initiate Personal Care Protoco [RC] .protocol Vital Signs [RC] 0800,1600,0000 Code Status [OTHERS] Routine Condition of Patient [OTHERS] Routine DVT Prophylaxis [OTHERS] Routine 10/02/20 17:00 IV Insert [RC] .ONCE SCDs [RC] QSHIFT Sodium Chloride Flush 0.9% [Normal Saline Flush 0.9%] 10 ml IVP 0100,0900,1700 10/02/20 17:05 Echo Transthoracic Complete [ECHO] Stat 10/02/20 17:07 Levalbuterol [Xopenex] 1.25 mg INH Q4H PRN 10/02/20 17:08 Ipratropium/Albuterol [Duoneb] 3 ml INH RTQID PRN 10/02/20 17:56 Incentive Spirometry - RT [RC] .tid 10/02/20 18:32 RT [Nebulizer/MDI Tx.] [RC] .Q4PRN 10/02/20 19:00 Piperacillin/Tazobactam [Zosyn] 3.375 gm Sodium Chloride 0.9% Minibag [Normal Saline 0.9% Minibag] 100 ml IV Q8H Vitamin [Trinatal Rx 1] 1 tab PO DAILYWM 10/02/20 19:01 Thiamine [Vitamin B-1] 100 mg PO DAILY 10/02/20 19:06 Sodium Chloride 0.9% [Normal Saline 0.9%] 250 ml IV Q24H 10/02/20 19:20 predniSONE [Deltasone] 40 mg PO DAILYWM 10/02/20 23:00 Enoxaparin [Lovenox] 60 mg SUBQ BID 10/03/20 07:00 Pantoprazole [Protonix] 40 mg PO QDAC 10/03/20 09:00 diltiaZEM CD [Cardizem Cd] 180 mg PO BID 10/04/20 05:00 CBC - COMP BLD CT W/AUTO DIFF [HEME] DAILYLAB CMP [COMPREHENSIVE METABOLIC PANEL] [CHEM] DAILYLAB CRP - C-REACTIVE PROTEIN [CHEM] DAILYLAB MAGNESIUM [CHEM] DAILYLAB 10/05/20 05:00 CBC - COMP BLD CT W/AUTO DIFF [HEME] DAILYLAB CMP [COMPREHENSIVE METABOLIC PANEL] [CHEM] DAILYLAB CRP - C-REACTIVE PROTEIN [CHEM] DAILYLAB 10/06/20 05:00 CBC - COMP BLD CT W/AUTO DIFF [HEME] DAILYLAB CMP [COMPREHENSIVE METABOLIC PANEL] [CHEM] DAILYLAB CRP - C-REACTIVE PROTEIN [CHEM] DAILYLAB 10/07/20 05:00 CBC - COMP BLD CT W/AUTO DIFF [HEME] DAILYLAB CMP [COMPREHENSIVE METABOLIC PANEL] [CHEM] DAILYLAB CRP - C-REACTIVE PROTEIN [CHEM] DAILYLAB 10/08/20 05:00 CRP - C-REACTIVE PROTEIN [CHEM] DAILYLAB Subjective - Subjective Patient Reports: Feeling Better Objective Vital Signs: Vital Signs - 24 hr 10/02/20 10/02/20 10/02/20 15:46 17:52 17:59 Temperature 36.8 C 36.5 C Heart Rate 111 H 111 H Heart Rate [ 108 H Brachial] Respiratory 20 22 24 Rate Blood Pressure 133/90 H Blood Pressure 145/81 H [Right Brachial artery] O2 Saturation 97 98 98 10/02/20 10/02/20 10/02/20 18:33 20:56 23:05 Temperature 37.0 C Heart Rate 104 H 101 H Heart Rate [ 103 H Brachial] Respiratory 22 16 20 Rate Blood Pressure Blood Pressure 129/75 [Right Brachial artery] O2 Saturation 93 10/03/20 10/03/20 10/03/20 00:00 03:22 03:50 Temperature 36.6 C 36.4 C L Heart Rate 97 Heart Rate [ 98 98 Brachial] Respiratory 18 20 18 Rate Blood Pressure Blood Pressure 124/82 H 136/80 H [Right Brachial artery] O2 Saturation 92 93 10/03/20 10/03/20 10/03/20 07:34 08:25 12:29 Temperature 36.3 C L 36.2 C L Heart Rate 96 Heart Rate [ 102 H 97 Brachial] Respiratory 20 20 20 Rate Blood Pressure Blood Pressure 124/82 H 118/74 [Right Brachial artery] O2 Saturation 92 92 10/03/20 13:08 Temperature Heart Rate 104 H Heart Rate [ Brachial] Respiratory 20 Rate Blood Pressure Blood Pressure [Right Brachial artery] O2 Saturation Oxygen O2 Source Room air I&O (Last 24 Hrs): Intake and Output Totals x24h 10/01/20 10/02/20 10/03/20 23:59 23:59 23:59 Intake Total 1020 700 Output Total 250 300 Balance 770 400 General: Alert, Oriented x3, Cooperative, No acute distress HEENT: Atraumatic Neck: Supple Lymphatic: no adenopathy Neuro: Alert, Non Focal, Oriented Times 3 Cardiovascular: Regular rate, Normal S1, Normal S2 Respiratory: Chest non-tender Abdomen: Normal bowel sounds, Soft Extremities: Normal pulses - Results Results: Laboratory Results WBC 17.2 x10^3/uL (4.8-10.8) H 10/03/20 04:15 RBC 4.10 10^6/uL (4.70-6.10) L 10/03/20 04:15 Hgb 15.4 g/dL (14.0-18.0) 10/03/20 04:15 Hct 44.4 % (42.0-52.0) 10/03/20 04:15 MCV 108.3 fL (80.0-94.0) H 10/03/20 04:15 MCH 37.6 pg (27.0-31.0) H 10/03/20 04:15 MCHC 34.7 g/dL (32.0-36.0) 10/03/20 04:15 RDW 14.1 % (12.0-15.0) 10/03/20 04:15 Plt Count 449 10^3/uL (130-450) 10/03/20 04:15 MPV 9.3 fL (7.4-11.4) 10/03/20 04:15 Neut # (Auto) 15.8 10^3/uL (1.5-6.6) H 10/03/20 04:15 Lymph # (Auto) 0.7 10^3/uL (1.5-3.5) L 10/03/20 04:15 [place] # (Auto) 0.6 10^3/uL (0.0-1.0) 10/03/20 04:15 Eos # (Auto) 0.0 10^3/uL (0.0-0.7) 10/03/20 04:15 Baso # (Auto) 0.0 10^3/uL (0.0-0.1) 10/03/20 04:15 Absolute Nucleated RBC 0.00 x10^3/uL 10/03/20 04:15 Nucleated RBC % 0.0 /100WBC 10/03/20 04:15 PT 12.9 secs (9.9-12.6) H 10/02/20 12:50 INR 1.2 (0.8-1.2) 10/02/20 12:50 Sodium 133 mmol/L (135-145) L 10/03/20 04:15 Potassium 4.2 mmol/L (3.5-5.0) 10/03/20 04:15 Chloride 97 mmol/L (101-111) L 10/03/20 04:15 Carbon Dioxide 24 mmol/L (21-32) 10/03/20 04:15 Anion Gap 12.0 (6-13) 10/03/20 04:15 BUN 12 mg/dL (6-20) 10/03/20 04:15 Creatinine 0.7 mg/dL (0.6-1.2) 10/03/20 04:15 Estimated GFR (MDRD) 115 (>89) 10/03/20 04:15 Glucose 171 mg/dL (70-100) H 10/03/20 04:15 Lactic Acid 1.2 mmol/L (0.5-2.2) 10/02/20 17:16 Calcium 8.3 mg/dL (8.5-10.3) L 10/03/20 04:15 Total Bilirubin 1.2 mg/dL (0.2-1.0) H 10/03/20 04:15 AST 96 IU/L (10-42) H 10/03/20 04:15 ALT 48 IU/L (10-60) 10/03/20 04:15 Alkaline Phosphatase 211 IU/L (42-121) H 10/03/20 04:15 Troponin I High Sens 21.8 ng/L (2.3-19.7) H* 10/02/20 14:17 C-Reactive Protein 7.2 mg/dL (0-1.0) H 10/03/20 04:15 B-Natriuretic Peptide 239 pg/mL (5-100) H 10/02/20 12:50 Total Protein 6.3 g/dL (6.7-8.2) L 10/03/20 04:15 Albumin 2.6 g/dL (3.2-5.5) L 10/03/20 04:15 Globulin 3.7 g/dL (2.1-4.2) 10/03/20 04:15 Albumin/Globulin Ratio 0.7 (1.0-2.2) L 10/03/20 04:15 Lipase 23 U/L (22-51) 10/02/20 12:50 Urine Color DARK YELLOW 10/02/20 22:41 Urine Clarity CLEAR (CLEAR) 10/02/20 22:41 Urine pH 6.5 PH (5.0-7.5) 10/02/20 22:41 Ur Specific [place] 1.010 (1.002-1.030) 10/02/20 22:41 Urine Protein NEGATIVE mg/dL (NEGATIVE) 10/02/20 22:41 Urine Glucose (UA) NEGATIVE mg/dL (NEGATIVE) 10/02/20 22:41 Urine Ketones NEGATIVE mg/dL (NEGATIVE) 10/02/20 22:41 Urine Occult Blood NEGATIVE (NEGATIVE) 10/02/20 22:41 Urine Nitrite NEGATIVE (NEGATIVE) 10/02/20 22:41 Urine Bilirubin NEGATIVE (NEGATIVE) 10/02/20 22:41 Urine Urobilinogen 1 (NORMAL) E.U./dL (NORMAL) 10/02/20 22:41 Ur Leukocyte Esterase NEGATIVE (NEGATIVE) 10/02/20 22:41 Ur Microscopic Review NOT INDICATED 10/02/20 22:41 Urine Culture Comments NOT INDICATED 10/02/20 22:41 Nasal Adenovirus (PCR) NOT DETECTED 10/02/20 13:05 Nasal B. parapertussis DNA (PCR) NOT DETECTED 10/02/20 13:05 Nasal Coronavir 229E PCR NOT DETECTED 10/02/20 13:05 Nasal Coronavir HKU1 PCR NOT DETECTED 10/02/20 13:05 Nasal Coronavir NL63 PCR NOT DETECTED 10/02/20 13:05 Nasal Coronavir OC43 PCR NOT DETECTED 10/02/20 13:05 Nasal Enterovir/Rhinovir PCR NOT DETECTED 10/02/20 13:05 Nasal Influenza B PCR NOT DETECTED 10/02/20 13:05 Nasal Influenza A PCR NOT DETECTED 10/02/20 13:05 Nasal Parainfluen 1 PCR NOT DETECTED 10/02/20 13:05 Nasal Parainfluen 2 PCR NOT DETECTED 10/02/20 13:05 Nasal Parainfluen 3 PCR NOT DETECTED 10/02/20 13:05 Nasal Parainfluen 4 PCR NOT DETECTED 10/02/20 13:05 Nasal RSV (PCR) NOT DETECTED 10/02/20 13:05 Nasal B.pertussis DNA PCR NOT DETECTED 10/02/20 13:05 Nasal C.pneumoniae (PCR) NOT DETECTED 10/02/20 13:05 [place] Human Metapneumo PCR NOT DETECTED 10/02/20 13:05 Nasal M.pneumoniae (PCR) NOT DETECTED 10/02/20 13:05 Nasal SARS-CoV-2 (PCR) NOT DETECTED 10/02/20 13:05 - Procedures Procedures: Procedures REPLACEMENT OF LEFT LENS WITH SYNTH SUB, PERC APPROACH (11/03/19) REPLACEMENT OF RIGHT LENS WITH SYNTH SUB, PERC APPROACH (08/18/19) ABX Reporting Has patient been on IV antibiotics over the past 48 hours?: Yes Current Medications - Current Medications Current Medications: Active Medications Acetaminophen (Acetaminophen 325 Mg Tablet) 650 mg PO Q4HR PRN PRN Reason: Pain 1 to 4 Albuterol/Ipratropium (Ipratropium/Albuterol 3 Ml Neb) 3 ml INH RTQID PRN PRN Reason: Shortness of Air/Wheezing Last Admin: 10/03/20 13:01 Dose: 3 ml Documented by: Diltiazem HCl (Diltiazem Cd 180 Mg Capsule) 180 mg PO BID [facility] Last Admin: 10/03/20 09:25 Dose: 180 mg Documented by: Enoxaparin Sodium (Enoxaparin 60 Mg/0.6 Ml Syringe) 60 mg SUBQ BID [facility] Last Admin: 10/03/20 09:25 Dose: 60 mg Documented by: Piperacillin Sod/Tazobactam (Sod 3.375 gm/ Sodium Chloride) 100 mls @ 25 mls/hr IV Q8H [facility] Last Admin: 10/03/20 11:04 Dose: 25 mls/hr Documented by: Sodium Chloride (Normal Saline 0.9%) 250 mls @ 0 mls/hr IV Q24H PRN PRN Reason: TKO RATE Last Infusion: 10/03/20 11:05 Dose: 20 mls/hr Documented by: Levalbuterol HCl (Levalbuterol 1.25 Mg/3 Ml Neb) 1.25 mg INH Q4H PRN PRN Reason: Shortness of Air/Wheezing Last Admin: 10/03/20 07:34 Dose: 1.25 mg Documented by: Morphine Sulfate (Morphine 2 Mg/Ml Carpuject) 2 mg IVP Q2HR PRN PRN Reason: Pain 8 to 10 Last Admin: 10/03/20 08:04 Dose: 2 mg Documented by: Ondansetron HCl (Ondansetron 4 Mg/2 Ml Vial) 4 mg IVP Q6HR PRN PRN Reason: Nausea / Vomiting Oxycodone HCl (Oxycodone 5 Mg Tablet) 5 mg PO Q4HR PRN PRN Reason: Pain 5 to 7 Last Admin: 10/03/20 13:04 Dose: 5 mg Documented by: Pantoprazole Sodium (Pantoprazole 40 Mg Tablet) 40 mg PO QDAC [facility] Last Admin: 10/03/20 06:49 Dose: 40 mg Documented by: Prednisone (Prednisone 20 Mg Tablet) 40 mg PO DAILYWM [facility] Last Admin: 10/03/20 08:04 Dose: 40 mg Documented by: Multivit/Folic Acid/Iron ( Vitamin Tablet) 1 tab PO DAILYWM [facility] Last Admin: 10/03/20 08:03 Dose: 1 tab Documented by: Sodium Chloride (Sodium Chloride Flush 0.9% 10 Ml Syringe) 10 ml IVP PRN PRN PRN Reason: NEEDED PER PROVIDER ORDERS Sodium Chloride (Sodium Chloride Flush 0.9% 10 Ml Syringe) 10 ml IVP 0100,0900,1700 [facility] Last Admin: 10/03/20 08:06 Dose: 10 ml Documented by: Thiamine HCl (Thiamine 100 Mg Tablet) 100 mg PO DAILY [facility] Last Admin: 10/03/20 09:26 Dose: 100 mg Documented by: diltiaZEM CD [Cardizem Cd] 180 mg PO BID 08/17/19 Albuterol Sulf [Ventolin Hfa Inhaler] 2 puffs INH Q6HR PRN 10/02/20
[2020-10-04] MEDS: SODIUM CHLORIDE FLUSH 0.9% 10 ML SYRINGE IVP SCH ×4 (00:35→23:16)
[2020-10-04] MEDS: oxyCODONE 5 MG TABLET PO PRN ×5 (00:40→19:13)
[2020-10-04] MEDS: LEVALBUTEROL 1.25 MG/3 ML NEB INH PRN ×3 (00:53→19:45)
[2020-10-04] MEDS: PIPERACILLIN/TAZOBACTAM 3.375 GM in SODIUM CHLORIDE 0.9% MINIBAG 100 ML IV SCH ×3 (02:54→19:19)
[2020-10-04 05:08] LABS: BASOPHILS % (AUTO) 0.2 %; HGB - HEMOGLOBIN 14.5 g/dL (14.0-18.0); LYMPHOCYTES % (AUTO) 5.3 %; MEAN CORPUSCULAR HEMOGLOBIN 37.5 pg (27.0-31.0); MEAN CORPUSCULAR HGB CONC 34.4 g/dL (32.0-36.0); MEAN PLATELET VOLUME 9.4 fL (7.4-11.4); MONOCYTES % (AUTO) 8.3 %; NEUTROPHILS % (AUTO) 85.6 %; PLT - PLATELET COUNT 466 10^3/uL (130-450); RED BLOOD COUNT 3.87 10^6/uL (4.70-6.10); RED CELL DISTRIBUTION WIDTH 14.4 % (12.0-15.0); WHITE BLOOD COUNT 20.8 x10^3/uL (4.8-10.8)
[2020-10-04 05:22] LABS: ALBUMIN 2.7 g/dL (3.2-5.5); ALBUMIN/GLOBULIN RATIO 0.7 (1.0-2.2); CALCIUM 8.5 mg/dL (8.5-10.3); CREATININE 0.6 mg/dL (0.6-1.2); CRP - C-REACTIVE PROTEIN 5.4 mg/dL (0-1.0); MAGNESIUM 2.4 mg/dL (1.7-2.8); TOTAL PROTEIN 6.4 g/dL (6.7-8.2)
[2020-10-04 05:41] LABS: DIFFERENTIAL COMMENT MANUAL DIFFERENTIAL; PLATELET ESTIMATE, MANUAL INCREASED (>450,000) (NORMAL); PLATELET MORPHOLOGY NORMAL APPEARANCE (NORMAL); RBC MORPHOLOGY (MULTIPLE) NORMAL APPEARANCE (NORMAL)
[2020-10-04] MEDS: IPRATROPIUM/ALBUTEROL 3 ML NEB INH PRN ×2 (05:54→10:20)
[2020-10-04] MEDS: PANTOPRAZOLE 40 MG TABLET PO SCH (06:22)
[2020-10-04] MEDS: PRENATAL VITAMIN TABLET PO SCH (07:47)
[2020-10-04] MEDS: predniSONE 20 MG TABLET PO SCH (07:47)
[2020-10-04] MEDS: diltiaZEM CD 180 MG CAPSULE PO SCH ×2 (07:51→20:21)
[2020-10-04] MEDS: ENOXAPARIN 60 MG/0.6 ML SYRINGE SUBQ SCH (07:52)
[2020-10-04] MEDS: THIAMINE 100 MG TABLET PO SCH (07:53)
[2020-10-04] MEDS ORDERED: predniSONE 20 MG TABLET PO SCH (08:00)
[2020-10-04] MEDS: SODIUM CHLORIDE 0.9% 250 ML IV PRN (08:00)
--- NOTE | 2020-10-04 08:41 | XRAY Report ---
PROCEDURE: Chest 1 View X-Ray INDICATIONS: Shortness of breath TECHNIQUE: One view of the chest was acquired. COMPARISON: CT angiogram 10/02/2020 FINDINGS: Surgical changes and devices: None. Lungs and pleura: Small bilateral pleural effusions. Groundglass opacity in the right upper lobe eusebio lar to the comparison CT, nonspecific. Increased interstitial markings in both lungs. Mediastinum: Mediastinal contours appear normal. Heart size is normal. Bones and chest wall: No suspicious bony lesions. Overlying soft tissues appear unremarkable. IMPRESSION: Small bilateral pleural effusions with groundglass opacity in the right upper lobe, not significantly changed from comparison CT. Reviewed by: Toño Dominguez MD on 10/04/2020 8:39 AM PST Approved by: Toño Dominguez MD on 10/04/2020 8:39 AM PST Station ID: [id number]
--- NOTE | 2020-10-04 09:17 | Ultrasound Report ---
PROCEDURE: Duplex Ext Veins Bilateral INDICATIONS: TAHIR MADDOX TECHNIQUE: Real-time imaging, as well as color and pulse Doppler interrogation, were performed of the deep veins of both legs from the inguinal ligament to the popliteal fossa. COMPARISON: FINDINGS: The deep veins are normally compressible, and free of intraluminal thrombus. Color and pu lse Doppler demonstrate normal phasic intravascular flow. There is normal augmentation response to d istal compression maneuver. Portions of the calf veins were not well seen. Presence or absence of chronic thrombus cannot be enti rely excluded. IMPRESSION: Somewhat limited quality of visualization of the calf veins, no definite acute or chronic DVT found. Reviewed by: Daniel Mccauley MD on 10/04/2020 9:15 AM PST Approved by: Daniel Mccauley MD on 10/04/2020 9:15 AM PST Station ID: [id number]
[2020-10-04] MEDS: IPRATROPIUM 0.2 MG/ML NEB INH SCH ×3 (11:43→19:45)
--- NOTE | 2020-10-04 12:30 | PROVIDER PROGRESS NOTE ---
Assessment/Plan - Problem List (1) Pulmonary embolus Qualifiers: Pulmonary embolism type: multiple subsegmental (without acute cor pulmonale) Qualified Code(s): I26.94 - Multiple subsegmental pulmonary emboli without acute cor pulmonale Assessment/Plan: 1224,Clinically patient response to treatment, patient feel shortness breathing is greatly improved. He can walk to the bathroom and come back. We will switch Eliquis after 48 hours of Lovenox. 10/03 Patient feels better, significantly improved for patient's difficulty breathing. We will continue treat with Lovenox twice daily. will check if DVT by US Patient is very shortness of breathing, CTA show bilaterally pulmonary embolism without right heart strain. Patient has a history of remote Hodgkin lymphoma, Patient is currently Cigarette smoke. Patient has no bilateral lower extremity pain or tenderness or erythema. Plan: Lovenox twice daily, telemetry, vital signs monitor closely. (2) SOB (shortness of breath) Conclusion/Plan: 10/04, Good improved, patient can walk to the bathroom and walk back. Continue treat her COPD with breathing treatment, antibiotics for pneumonia, Eliquis for PE. Unfortunately, we do not have echo study for patient in the hospital now. 10/03 significantly improved, We will continue treated patient's PE, COPD and pneumonia, Add morphine as needed Patient presents very short of breathing, Patient has PE, Patient has a history of COPD, current smoker, CTA also indicated pt has pneumonia, and Mild pulmon magalie congestion. Unfortunately we do not have echo study for patient until next week. At this point we will treat the PE with Lovenox, Zosyn for patient pneumonia, breathing treatment for patient COPD and add prednisone for his COPD, As needed morphine for SOB. (3) Pneumonia Conclusion/Plan: 1224,Patient had stable oxygen saturation on room air. Clinically patient does not present respiratory distress now. Patient WBC is slightly up but patient had steroid to treat for his COPD. CRP is trending down. Continue Zosyn. 10/03 Patient has no fever, Blood culture is pending, Patient's WBC is slightly trended down although pt was given steroid for his COPD. continue antibiotics. Patient present early shortness of breathing, patient has a cough and sputum, patient has WBC 19 and elevated lactic acid 2.9, CTA indicated patient has pneumonia or infection. at this time we will treat the patient pneumonia With antibiotics Zosyn, patient's blood culture is pending. (4) Abdominal pain Conclusion/Plan: 122, resolved, patient has no complaint of abdominal pain 10/03, improved for abdominal pain.Continue antibiotics and Prednisone, pain control. Patient reported he had abdominal pain in the home, CT of abdomen show possible infection/Inflammation and a colon wall thickening, Patient has elevated WBC and elevated lactic acid. We will treat with Zosyn and prednisone, Pain control (5) Elevated liver enzymes Conclusion/Plan: 122, liver enzyme is close to normal 10/03 Liver enzyme is trended down, improved. 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 Patient report he drinks beer every day but denies alcohol withdrawal. Advised patient quitt alcohol, and vitamin B-1 was given to patient. In CAT scan of the abdomen show 1.5 cm right hepatic lobe hypodensity which may represent cyst versus hemoangioma. recommend pt for out-pt CT or MRI of liver mass protocol for further feature. Daily scientific laboratory supervisor liver enzyme (6) Sinus tachycardia Conclusion/Plan: 10/04, HR is below 100, resolved. 10/03 improved. 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 Patient has history of tachycardia, Patient has PE now plus infection. patient take Cardizem in his home medication, EKG show sinus tachycardia, Patient denies chest pain, troponin slightly elevated but flat and reduced. will resume patient home medication, Continue treat PE and infection, crosscutter rolled glass. (7) COPD (chronic obstructive pulmonary disease) Conclusion/Plan: 10/03 Improved, continue breathing treatment and Prednisone. Patient has a history of COPD and continue cigarette smoking. Lung sounds show diminished with bilaterally crackles. We will give patient breathing treatment, and low dosage prednisone. Patient decline nicotine patch now (8) Rib fracture Conclusion/Plan: 10/04, Encourage patient to use incentive spirometer, continue pain control 10/03 Continue pain control, incentive spirometer. Patient report he has injury when he deeply leaned down on his left side to nut picker a stone. chest X-ray show patient has Nondisplaced laterally left 10th rib fracture, Clinically patient report left low lateral chest wall pain, With a small bump In palpitation. Order iincentive spirometer, Encourage patient practice with, Pain control. - Current Meds Current Meds: Current Medications Generic Name Dose Route Start Last Admin Trade Name Freq PRN Reason Stop Dose Admin Diltiazem HCl 180 mg 10/03/20 09:00 10/04/20 07:51 Diltiazem Cd 180 Mg Capsule PO 180 mg BID TRACE Administration Piperacillin Sod/Tazobactam 100 mls @ 25 mls/hr 10/02/20 19:00 10/04/20 10:41 Sod 3.375 gm/ Sodium Chloride IV 25 mls/hr Q8H TRACE Administration Sodium Chloride 250 mls @ 0 mls/hr 10/02/20 19:06 10/04/20 10:42 Normal Saline 0.9% IV 0 mls/hr Q24H PRN Infusion TKO RATE TKO Ipratropium [place] 0.5 mg 10/04/20 11:00 10/04/20 11:43 Ipratropium 0.2 Mg/Ml Neb INH Not Given RTQID TRACE Levalbuterol HCl 1.25 mg 10/02/20 17:07 10/04/20 00:53 Levalbuterol 1.25 Mg/3 Ml Neb INH 1.25 mg Q4H PRN Administration Shortness of Air/Wheezing Morphine Sulfate 2 mg 10/02/20 16:56 10/03/20 08:04 Morphine 2 Mg/Ml Carpuject IVP 2 mg Q2HR PRN Administration Pain 8 to 10 Oxycodone HCl 5 mg 10/02/20 16:56 10/04/20 10:20 Oxycodone 5 Mg Tablet PO 5 mg Q4HR PRN Administration Pain 5 to 7 Pantoprazole Sodium 40 mg 10/03/20 07:00 10/04/20 06:22 Pantoprazole 40 Mg Tablet PO 40 mg QDAC TRACE Administration Prednisone 20 mg 10/04/20 08:00 10/04/20 07:47 Prednisone 20 Mg Tablet PO 20 mg DAILYWM TRACE Administration Multivit/Folic Acid/Iron 1 tab 10/02/20 19:00 10/04/20 07:47 Vitamin Tablet PO 1 tab DAILYWM TRACE Administration Sodium Chloride 10 ml 10/02/20 17:00 10/04/20 07:55 Sodium Chloride Flush 0.9% 10 Ml Syringe IVP Not Given 0100,0900,1700 [facility] Thiamine HCl 100 mg 10/02/20 19:01 10/04/20 07:53 Thiamine 100 Mg Tablet PO 100 mg DAILY TRACE Administration - Lab Result Fish Bone Diagrams: 10/04/20 04:36 10/04/20 04:36 - Additional Planning My Orders: My Active Orders 10/04/20 Social Work Consult [CONS] Routine 10/04/20 08:00 predniSONE [Deltasone] 20 mg PO DAILYWM 10/04/20 10:25 Nebulizer/MDI Tx. [RC] QID Resp Teach Nebulizer/MDI [RC] .ONCE 10/04/20 11:00 Ipratropium [Atrovent] 0.5 mg INH RTQID 10/04/20 12:05 Out of bed 4+ hours [RC] QID 10/04/20 21:00 Apixaban [Eliquis] 10 mg PO BID 10/05/20 05:00 CBC - COMP BLD CT W/AUTO DIFF [HEME] DAILYLAB CMP [COMPREHENSIVE METABOLIC PANEL] [CHEM] DAILYLAB CRP - C-REACTIVE PROTEIN [CHEM] DAILYLAB 10/06/20 05:00 CBC - COMP BLD CT W/AUTO DIFF [HEME] DAILYLAB CMP [COMPREHENSIVE METABOLIC PANEL] [CHEM] DAILYLAB CRP - C-REACTIVE PROTEIN [CHEM] DAILYLAB 10/07/20 05:00 CBC - COMP BLD CT W/AUTO DIFF [HEME] DAILYLAB CMP [COMPREHENSIVE METABOLIC PANEL] [CHEM] DAILYLAB CRP - C-REACTIVE PROTEIN [CHEM] DAILYLAB 10/08/20 05:00 CRP - C-REACTIVE PROTEIN [CHEM] DAILYLAB Subjective - Subjective Patient Reports: Feeling Better Objective Vital Signs: Vital Signs - 24 hr 10/03/20 10/03/20 10/03/20 12:29 13:08 15:44 Temperature 36.2 C L 36.3 C L Heart Rate 104 H Heart Rate [ 97 105 H Brachial] Respiratory 20 20 16 Rate Blood Pressure 118/74 132/83 H [Right Brachial artery] O2 Saturation 92 92 10/03/20 10/03/20 10/04/20 18:23 20:11 00:00 Temperature 36.6 C 36.5 C Heart Rate 101 H Heart Rate [ 106 H 110 H Brachial] Respiratory 20 16 18 Rate Blood Pressure 143/87 H 138/54 H [Right Brachial artery] O2 Saturation 93 92 10/04/20 10/04/20 10/04/20 00:55 03:04 05:55 Temperature 36.3 C L Heart Rate 101 H 96 Heart Rate [ 98 Brachial] Respiratory 18 16 18 Rate Blood Pressure 140/82 H [Right Brachial artery] O2 Saturation 92 10/04/20 08:00 Temperature 36.5 C Heart Rate Heart Rate [ 100 Brachial] Respiratory 18 Rate Blood Pressure 142/91 H [Right Brachial artery] O2 Saturation 92 Oxygen O2 Source Room air I&O (Last 24 Hrs): Intake and Output Totals x24h 10/02/20 10/03/20 10/04/20 23:59 23:59 23:59 Intake Total 1020 1456.333 447.667 Output Total 250 300 Balance 770 1156.333 447.667 General: Alert, Oriented x3, Cooperative, No acute distress HEENT: Atraumatic Neck: Supple Lymphatic: no adenopathy Neuro: Alert, Non Focal, Oriented Times 3 Cardiovascular: Regular rate, Normal S1, Normal S2 Respiratory: Chest non-tender, No respiratory distress Abdomen: Normal bowel sounds, Soft, No tenderness Extremities: Normal pulses - Results Results: Laboratory Results WBC 20.8 x10^3/uL (4.8-10.8) H 10/04/20 04:36 RBC 3.87 10^6/uL (4.70-6.10) L 10/04/20 04:36 Hgb 14.5 g/dL (14.0-18.0) 10/04/20 04:36 Hct 42.2 % (42.0-52.0) 10/04/20 04:36 MCV 109.0 fL (80.0-94.0) H 10/04/20 04:36 MCH 37.5 pg (27.0-31.0) H 10/04/20 04:36 MCHC 34.4 g/dL (32.0-36.0) 10/04/20 04:36 RDW 14.4 % (12.0-15.0) 10/04/20 04:36 Plt Count 466 10^3/uL (130-450) H 10/04/20 04:36 MPV 9.4 fL (7.4-11.4) 10/04/20 04:36 Neut # (Auto) Not Reportable 10/04/20 04:36 Lymph # (Auto) Not Reportable 10/04/20 04:36 [place] # (Auto) Not Reportable 10/04/20 04:36 Eos # (Auto) Not Reportable 10/04/20 04:36 Baso # (Auto) Not Reportable 10/04/20 04:36 Absolute Nucleated RBC Not Reportable 10/04/20 04:36 Band Neuts % (Manual) Not Reportable 10/04/20 04:36 Abnorm Lymph % (Manual) Not Reportable 10/04/20 04:36 Nucleated RBC % Not Reportable 10/04/20 04:36 Neutrophils # (Manual) Not Reportable 10/04/20 04:36 Lymphocytes # (Manual) Not Reportable 10/04/20 04:36 Monocytes # (Manual) Not Reportable 10/04/20 04:36 Eosinophils # (Manual) Not Reportable 10/04/20 04:36 Basophils # (Manual) Not Reportable 10/04/20 04:36 Differential Comment MANUAL DIFFERENTIAL 10/04/20 04:36 WBC Morphology NORMAL APPEARANCE (NORMAL) 10/04/20 04:36 Platelet Estimate INCREASED (>450,000) (NORMAL) 10/04/20 04:36 Platelet Morphology NORMAL APPEARANCE (NORMAL) 10/04/20 04:36 RBC Morph Micro Appear NORMAL APPEARANCE (NORMAL) 10/04/20 04:36 PT 12.9 secs (9.9-12.6) H 10/02/20 12:50 INR 1.2 (0.8-1.2) 10/02/20 12:50 Sodium 134 mmol/L (135-145) L 10/04/20 04:36 Potassium 4.0 mmol/L (3.5-5.0) 10/04/20 04:36 Chloride 98 mmol/L (101-111) L 10/04/20 04:36 Carbon Dioxide 25 mmol/L (21-32) 10/04/20 04:36 Anion Gap 11.0 (6-13) 10/04/20 04:36 BUN 16 mg/dL (6-20) 10/04/20 04:36 Creatinine 0.6 mg/dL (0.6-1.2) 10/04/20 04:36 Estimated GFR (MDRD) 137 (>89) 10/04/20 04:36 Glucose 127 mg/dL (70-100) H 10/04/20 04:36 Lactic Acid 1.2 mmol/L (0.5-2.2) 10/02/20 17:16 Calcium 8.5 mg/dL (8.5-10.3) 10/04/20 04:36 Magnesium 2.4 mg/dL (1.7-2.8) 10/04/20 04:36 Total Bilirubin 1.0 mg/dL (0.2-1.0) 10/04/20 04:36 AST 64 IU/L (10-42) H 10/04/20 04:36 ALT 44 IU/L (10-60) 10/04/20 04:36 Alkaline Phosphatase 187 IU/L (42-121) H 10/04/20 04:36 Troponin I High Sens 21.8 ng/L (2.3-19.7) H* 10/02/20 14:17 C-Reactive Protein 5.4 mg/dL (0-1.0) H 10/04/20 04:36 B-Natriuretic Peptide 239 pg/mL (5-100) H 10/02/20 12:50 Total Protein 6.4 g/dL (6.7-8.2) L 10/04/20 04:36 Albumin 2.7 g/dL (3.2-5.5) L 10/04/20 04:36 Globulin 3.7 g/dL (2.1-4.2) 10/04/20 04:36 Albumin/Globulin Ratio 0.7 (1.0-2.2) L 10/04/20 04:36 Lipase 23 U/L (22-51) 10/02/20 12:50 Urine Color DARK YELLOW 10/02/20 22:41 Urine Clarity CLEAR (CLEAR) 10/02/20 22:41 Urine pH 6.5 PH (5.0-7.5) 10/02/20 22:41 Ur Specific [place] 1.010 (1.002-1.030) 10/02/20 22:41 Urine Protein NEGATIVE mg/dL (NEGATIVE) 10/02/20 22:41 Urine Glucose (UA) NEGATIVE mg/dL (NEGATIVE) 10/02/20 22:41 Urine Ketones NEGATIVE mg/dL (NEGATIVE) 10/02/20 22:41 Urine Occult Blood NEGATIVE (NEGATIVE) 10/02/20 22:41 Urine Nitrite NEGATIVE (NEGATIVE) 10/02/20 22:41 Urine Bilirubin NEGATIVE (NEGATIVE) 10/02/20 22:41 Urine Urobilinogen 1 (NORMAL) E.U./dL (NORMAL) 10/02/20 22:41 Ur Leukocyte Esterase NEGATIVE (NEGATIVE) 10/02/20 22:41 Ur Microscopic Review NOT INDICATED 12 22:41 Urine Culture Comments NOT INDICATED 12 22:41 Nasal Adenovirus (PCR) NOT DETECTED 10/02/20 13:05 Nasal B. parapertussis DNA (PCR) NOT DETECTED 10/02/20 13:05 Nasal Coronavir 229E PCR NOT DETECTED 10/02/20 13:05 Nasal Coronavir HKU1 PCR NOT DETECTED 10/02/20 13:05 Nasal Coronavir NL63 PCR NOT DETECTED 10/02/20 13:05 Nasal Coronavir OC43 PCR NOT DETECTED 10/02/20 13:05 Nasal Enterovir/Rhinovir PCR NOT DETECTED 10/02/20 13:05 Nasal Influenza B PCR NOT DETECTED 10/02/20 13:05 Nasal Influenza A PCR NOT DETECTED 10/02/20 13:05 Nasal Parainfluen 1 PCR NOT DETECTED 10/02/20 13:05 Nasal Parainfluen 2 PCR NOT DETECTED 10/02/20 13:05 Nasal Parainfluen 3 PCR NOT DETECTED 10/02/20 13:05 Nasal Parainfluen 4 PCR NOT DETECTED 10/02/20 13:05 Nasal RSV (PCR) NOT DETECTED 10/02/20 13:05 Nasal B.pertussis DNA PCR NOT DETECTED 10/02/20 13:05 Nasal C.pneumoniae (PCR) NOT DETECTED 10/02/20 13:05 [place] Human Metapneumo PCR NOT DETECTED 10/02/20 13:05 Nasal M.pneumoniae (PCR) NOT DETECTED 10/02/20 13:05 Nasal SARS-CoV-2 (PCR) NOT DETECTED 10/02/20 13:05 - Procedures Procedures: Procedures REPLACEMENT OF LEFT LENS WITH SYNTH SUB, PERC APPROACH (11/03/19) REPLACEMENT OF RIGHT LENS WITH SYNTH SUB, PERC APPROACH (08/18/19) ABX Reporting Has patient been on IV antibiotics over the past 48 hours?: Yes Current Medications - Current Medications Current Medications: Active Medications Acetaminophen (Acetaminophen 325 Mg Tablet) 650 mg PO Q4HR PRN PRN Reason: Pain 1 to 4 Apixaban (Apixaban 5 Mg Tablet) 10 mg PO BID [facility] Diltiazem HCl (Diltiazem Cd 180 Mg Capsule) 180 mg PO BID [facility] Last Admin: 10/04/20 07:51 Dose: 180 mg Documented by: Piperacillin Sod/Tazobactam (Sod 3.375 gm/ Sodium Chloride) 100 mls @ 25 mls/hr IV Q8H [facility] Last Admin: 10/04/20 10:41 Dose: 25 mls/hr Documented by: Sodium Chloride (Normal Saline 0.9%) 250 mls @ 0 mls/hr IV Q24H PRN PRN Reason: TKO RATE Last Infusion: 10/04/20 10:42 Dose: 0 mls/hr Documented by: Ipratropium [place] (Ipratropium 0.2 Mg/Ml Neb) 0.5 mg INH RTQID [facility] Last Admin: 10/04/20 11:43 Dose: Not Given Documented by: Levalbuterol HCl (Levalbuterol 1.25 Mg/3 Ml Neb) 1.25 mg INH Q4H PRN PRN Reason: Shortness of Air/Wheezing Last Admin: 10/04/20 00:53 Dose: 1.25 mg Documented by: Morphine Sulfate (Morphine 2 Mg/Ml Carpuject) 2 mg IVP Q2HR PRN PRN Reason: Pain 8 to 10 Last Admin: 10/03/20 08:04 Dose: 2 mg Documented by: Ondansetron HCl (Ondansetron 4 Mg/2 Ml Vial) 4 mg IVP Q6HR PRN PRN Reason: Nausea / Vomiting Oxycodone HCl (Oxycodone 5 Mg Tablet) 5 mg PO Q4HR PRN PRN Reason: Pain 5 to 7 Last Admin: 10/04/20 10:20 Dose: 5 mg Documented by: Pantoprazole Sodium (Pantoprazole 40 Mg Tablet) 40 mg PO QDAC [facility] Last Admin: 10/04/20 06:22 Dose: 40 mg Documented by: Prednisone (Prednisone 20 Mg Tablet) 20 mg PO DAILYWM [facility] Last Admin: 10/04/20 07:47 Dose: 20 mg Documented by: Multivit/Folic Acid/Iron ( Vitamin Tablet) 1 tab PO DAILYWM [facility] Last Admin: 10/04/20 07:47 Dose: 1 tab Documented by: Sodium Chloride (Sodium Chloride Flush 0.9% 10 Ml Syringe) 10 ml IVP PRN PRN PRN Reason: NEEDED PER PROVIDER ORDERS Sodium Chloride (Sodium Chloride Flush 0.9% 10 Ml Syringe) 10 ml IVP 0100,0900,1700 [facility] Last Admin: 10/04/20 07:55 Dose: Not Given Documented by: Thiamine HCl (Thiamine 100 Mg Tablet) 100 mg PO DAILY [facility] Last Admin: 10/04/20 07:53 Dose: 100 mg Documented by: [email or web address] CD [Cardizem Cd] 180 mg PO BID 08/17/19 Albuterol Sulf [Ventolin Hfa Inhaler] 2 puffs INH Q6HR PRN 10/02/20
[2020-10-04] MEDS: SACCHAROMYCES BOULARDII 250 MG CAPSULE PO SCH (16:19)
[2020-10-04] MEDS: APIXABAN 5 MG TABLET PO SCH (20:20)
[2020-10-04] MEDS ORDERED: ENOXAPARIN 60 MG/0.6 ML SYRINGE SUBQ SCH (21:00)
[2020-10-05] MEDS: oxyCODONE 5 MG TABLET PO PRN ×6 (01:12→22:02)
[2020-10-05] MEDS: LEVALBUTEROL 1.25 MG/3 ML NEB INH PRN ×5 (01:26→19:13)
[2020-10-05] MEDS: PIPERACILLIN/TAZOBACTAM 3.375 GM in SODIUM CHLORIDE 0.9% MINIBAG 100 ML IV SCH (03:06)
[2020-10-05] MEDS: PANTOPRAZOLE 40 MG TABLET PO SCH (05:53)
[2020-10-05 06:50] LABS: ALBUMIN 2.9 g/dL (3.2-5.5); ALBUMIN/GLOBULIN RATIO 0.9 (1.0-2.2); BILIRUBIN,TOTAL 1.2 mg/dL (0.2-1.0); CALCIUM 8.2 mg/dL (8.5-10.3); CREATININE 0.6 mg/dL (0.6-1.2); CRP - C-REACTIVE PROTEIN 4.8 mg/dL (0-1.0); TOTAL PROTEIN 6.3 g/dL (6.7-8.2)
[2020-10-05 07:13] LABS: BASOPHILS # (AUTO) 0.1 10^3/uL (0.0-0.1); BASOPHILS % (AUTO) 0.3 %; EOSINOPHILS # (AUTO) 0.1 10^3/uL (0.0-0.7); EOSINOPHILS % (AUTO) 0.7 %; HGB - HEMOGLOBIN 15.3 g/dL (14.0-18.0); LYMPHOCYTES % (AUTO) 5.5 %; MEAN CORPUSCULAR HGB CONC 33.6 g/dL (32.0-36.0); MEAN CORPUSCULAR VOLUME 110.2 fL (80.0-94.0); MEAN PLATELET VOLUME 9.6 fL (7.4-11.4); MONOCYTES # (AUTO) 1.1 10^3/uL (0.0-1.0); NEUTROPHILS # (AUTO) 16.2 10^3/uL (1.5-6.6); NEUTROPHILS % (AUTO) 86.6 %; PLT - PLATELET COUNT 495 10^3/uL (130-450); RED BLOOD COUNT 4.13 10^6/uL (4.70-6.10); RED CELL DISTRIBUTION WIDTH 14.6 % (12.0-15.0); WHITE BLOOD COUNT 18.7 x10^3/uL (4.8-10.8)
[2020-10-05] MEDS: IPRATROPIUM 0.2 MG/ML NEB INH SCH ×4 (07:15→19:13)
[2020-10-05] MEDS: predniSONE 20 MG TABLET PO SCH (07:41)
[2020-10-05] MEDS: PRENATAL VITAMIN TABLET PO SCH (07:41)
[2020-10-05] MEDS: SACCHAROMYCES BOULARDII 250 MG CAPSULE PO SCH ×2 (07:41→17:09)
[2020-10-05 07:54] LABS: PLATELET ESTIMATE, MANUAL INCREASED (>450,000) (NORMAL); PLATELET MORPHOLOGY NORMAL APPEARANCE (NORMAL); RBC MORPHOLOGY (MULTIPLE) 2+ MACROCYTOSIS (NORMAL)
[2020-10-05] MEDS: SODIUM CHLORIDE FLUSH 0.9% 10 ML SYRINGE IVP SCH ×3 (08:28→23:50)
[2020-10-05] MEDS: THIAMINE 100 MG TABLET PO SCH (08:28)
[2020-10-05] MEDS: APIXABAN 5 MG TABLET PO SCH ×2 (08:28→20:10)
[2020-10-05] MEDS: diltiaZEM CD 180 MG CAPSULE PO SCH ×2 (08:28→20:10)
--- NOTE | 2020-10-05 10:31 | Ultrasound Report ---
PROCEDURE: Abdomen Limited INDICATIONS: Elevated LFT's. TECHNIQUE: Real-time scanning was performed of the abdominal and retroperitoneal organs, with image documentatio n. COMPARISON: None. FINDINGS: Liver: Liver is normal in size. Diffusely increased hepatic echotexture. There is a 1.6 x 1.2 x 1.3 cm right hepatic lobe cyst. Gallbladder: Gallbladder is normal in appearance without gallstones, gallbladder wall thickening, or pericholecystic fluid. Negative sonographic Velásquez's sign. Biliary ducts: Intrahepatic bile ducts are non-dilated. Extrahepatic bile duct caliber measures 7 m m. Normal is 6-7 mm or less in diameter, or 10 mm or less post-cholecystectomy. Pancreas: Visualized portions of the pancreas appear minimally echogenic. Kidneys: Right kidney is normal in size and echotexture. Right kidney measures 10.6 cm long. No hyd ronephrosis or nephrolithiasis. No solid masses. Miscellaneous: Small amount of abdominal fluid. Small right pleural effusion. IMPRESSION: Diffusely increased hepatic echotexture likely related to diffuse hepatic steatosis versus sequela of chronic hepatocellular disease. No focal intrahepatic mass lesions. Small right hepatic lobe cyst. Small amount of ascites and small right pleural effusion. Reviewed by: Zackary Luna MD on 10/05/2020 10:30 AM PST Approved by: Zackary Luna MD on 10/05/2020 10:30 AM PST Station ID: [id number]
[2020-10-05] MEDS: levoFLOXacin 250 MG TABLET PO SCH (11:51)
--- NOTE | 2020-10-05 13:25 | PROVIDER PROGRESS NOTE ---
Subjective - Prog Note Date Prog Note Date: 10/05/20 - Subjective Subjective: He is much improved compared to when he first came in. Still feels a little short of breath and weak when ambulating but overall much better. Has no abdominal pain. No nausea or vomiting. Tolerating a diet. His pain is controlled with oxycodone as needed. Current Medications - Current Medications Current Medications: Active Medications Acetaminophen (Acetaminophen 325 Mg Tablet) 650 mg PO Q4HR PRN PRN Reason: Pain 1 to 4 Apixaban (Apixaban 5 Mg Tablet) 10 mg PO BID [facility] Last Admin: 10/05/20 08:28 Dose: 10 mg Documented by: Diltiazem HCl (Diltiazem Cd 180 Mg Capsule) 180 mg PO BID [facility] Last Admin: 10/05/20 08:28 Dose: 180 mg Documented by: Sodium Chloride (Normal Saline 0.9%) 250 mls @ 0 mls/hr IV Q24H PRN PRN Reason: TKO RATE Last Infusion: 10/05/20 08:40 Dose: Infused Documented by: Ipratropium [place] (Ipratropium 0.2 Mg/Ml Neb) 0.5 mg INH RTQID [facility] Last Admin: 10/05/20 11:07 Dose: 0.5 mg Documented by: Levalbuterol HCl (Levalbuterol 1.25 Mg/3 Ml Neb) 1.25 mg INH Q4H PRN PRN Reason: Shortness of Air/Wheezing Last Admin: 10/05/20 11:07 Dose: 1.25 mg Documented by: Levofloxacin (Levofloxacin 250 Mg Tablet) 750 mg PO DAILY@1100 [facility] Last Admin: 10/05/20 11:51 Dose: 750 mg Documented by: Ondansetron HCl (Ondansetron 4 Mg/2 Ml Vial) 4 mg IVP Q6HR PRN PRN Reason: Nausea / Vomiting Oxycodone HCl (Oxycodone 5 Mg Tablet) 5 mg PO Q4HR PRN PRN Reason: Pain 5 to 7 Last Admin: 10/05/20 09:47 Dose: 5 mg Documented by: Prednisone (Prednisone 20 Mg Tablet) 20 mg PO DAILYWM [facility] Last Admin: 10/05/20 07:41 Dose: 20 mg Documented by: Multivit/Folic Acid/Iron ( Vitamin Tablet) 1 tab PO DAILYWM [facility] Last Admin: 12/25/20 07:41 Dose: 1 tab Documented by: Saccharomyces Boulardii (Saccharomyces Boulardii 250 Mg Capsule) 250 mg PO BI DWM [facility] Last Admin: 10/05/20 07:41 Dose: 250 mg Documented by: Sodium Chloride (Sodium Chloride Flush 0.9% 10 Ml Syringe) 10 ml IVP PRN PRN PRN Reason: NEEDED PER PROVIDER ORDERS Sodium Chloride (Sodium Chloride Flush 0.9% 10 Ml Syringe) 10 ml IVP 0100,0900,1700 [facility] Last Admin: 10/05/20 08:28 Dose: Not Given Documented by: Thiamine HCl (Thiamine 100 Mg Tablet) 100 mg PO DAILY [facility] Last Admin: 10/05/20 08:28 Dose: 100 mg Documented by: diltiaZEM CD [Cardizem Cd] 180 mg PO BID 08/17/19 Albuterol Sulf [Ventolin Hfa Inhaler] 2 puffs INH Q6HR PRN 10/02/20 Objective - Vital Signs/Intake & Output Reviewed Vital Signs: Yes Vital Signs: Vital Signs x48h Temp Pulse Pulse Resp BP Pulse Ox 10/05/20 12:45 120 H 20 94 10/05/20 11:09 104 H 18 10/05/20 10:03 94 10/05/20 08:00 36.5 C 95 14 130/82 H 90 L 10/05/20 07:19 106 H 20 10/05/20 05:46 36.3 C L 104 H 20 137/84 H 93 Intake & Output: Intake & Output 10/02/20 10/03/20 10/04/20 10/05/20 23:59 23:59 23:59 23:59 Intake Total 1020 6320.361 5843.334 982.333 Output Total 250 300 Balance 770 7145.774 7792.334 982.333 - Objective General Appearance: positive: No acute distress, Alert Eyes Bilateral: positive: Normal inspection, Conjunctivae nml ENT: positive: ENT inspection nml Neck: positive: Nml inspection Respiratory: positive: No respiratory distress, Wheezes (Faint expiratory wheez es throughout all lung guerrero). negative: Rales, Rhonchi Cardiovascular: positive: Tachycardia. negative: Irregularly irregular, Bradycardia, Systolic murmur Abdomen: positive: Non-tender, No distention. negative: Tenderness, Guarding, Rebound Skin: positive: Warm, Dry Extremities: positive: Full ROM, No pedal edema Neurologic/Psychiatric: negative: Disoriented to person, Disoriented to place, Disoriented to time - Lab Results Fish Bones: 10/05/20 06:28 10/05/20 06:28 Other Labs: Lab Results x24hrs 10/05/20 10/05/20 Range/Units 06:28 06:28 WBC 18.7 H (4.8-10.8) x10^3/uL RBC 4.13 L (4.70-6.10) 10^6/uL Hgb 15.3 (14.0-18.0) g/dL Hct 45.5 (42.0-52.0) % MCV 110.2 H (80.0-94.0) fL MCH 37.0 H (27.0-31.0) pg MCHC 33.6 (32.0-36.0) g/dL RDW 14.6 (12.0-15.0) % Plt Count 495 H (130-450) 10^3/uL MPV 9.6 (7.4-11.4) fL Neut # (Auto) 16.2 H (1.5-6.6) 10^3/uL Lymph # (Auto) 1.0 L (1.5-3.5) 10^3/uL [place] # (Auto) 1.1 H (0.0-1.0) 10^3/uL Eos # (Auto) 0.1 (0.0-0.7) 10^3/uL Baso # (Auto) 0.1 (0.0-0.1) 10^3/uL Absolute Nucleated RBC 0.00 x10^3/uL Nucleated RBC % 0.0 /100WBC Manual Slide Review Indicated Platelet Estimate INCREASED (>450,000) (NORMAL) Platelet Morphology NORMAL APPEARANCE (NORMAL) RBC Morph Micro Appear 2+ MACROCYTOSIS (NORMAL) Sodium 134 L (135-145) mmol/L Potassium 3.9 (3.5-5.0) mmol/L Chloride 96 L (101-111) mmol/L Carbon Dioxide 27 (21-32) mmol/L Anion Gap 11.0 (6-13) BUN 15 (6-20) mg/dL Creatinine 0.6 (0.6-1.2) mg/dL Estimated GFR (MDRD) 137 (>89) Glucose 102 H (70-100) mg/dL Calcium 8.2 L (8.5-10.3) mg/dL Total Bilirubin 1.2 H (0.2-1.0) mg/dL AST 136 H (10-42) IU/L ALT 55 (10-60) IU/L Alkaline Phosphatase 185 H (42-121) IU/L C-Reactive Protein 4.8 H (0-1.0) mg/dL Total Protein 6.3 L (6.7-8.2) g/dL Albumin 2.9 L (3.2-5.5) g/dL Globulin 3.4 (2.1-4.2) g/dL Albumin/Globulin Ratio 0.9 L (1.0-2.2) ABX Reporting Has patient been on IV antibiotics over the past 48 hours?: Yes Assessment/Plan - Problem List (1) Bilateral pulmonary embolism Impression: This is the cause of his dyspnea. CT angiogram on admission revealed bilateral pulmonary embolisms. Dopplers of the lower extremities were negative. The etiology is not clear given there is no obvious history of trauma, recent surgery or any provoking factors. He reports no family history of thrombus. An echocardiogram was not obtained given it is not available until Thursday. CT angio did not show evidence of right heart strain. Clinically he has improved from a dyspnea standpoint. He is not hypoxic. He is tachycardic although he states this is his baseline. He has now on Eliquis which she is tolerating well without evidence of bleeding. I discussed with the patient he will need at least 3 months of Eliquis and then he will need a hypercoagulable work-up on an outpatient basis with his primary care provider. He should get an outpatient colonoscopy as well to ensure there is no underlying malignancy. (2) Community acquired pneumonia Impression: Ridging was concerning for right upper lobe infiltrate. This could potentially be an all infarct given his pulmonary embolism but due to his white count, we are treating him for presumed community-acquired pneumonia. He had been on Zosyn previously and we will discontinue this and start him on oral Levaquin today. This likely be continued for 5 more days. His white count is improving but still elevated although this could be due to steroids. Qualifiers: Laterality: right Lung location: upper lobe of lung Qualified Code(s): J18.9 - Pneumonia, unspecified organism (3) COPD (chronic obstructive pulmonary disease) Impression: He does appear to have a mild exacerbation of his COPD. He does have expiratory wheezing throughout. He is on steroids which we will continue. Continue Levaquin. Albuterol as needed. Qualifiers: COPD type: COPD with acute exacerbation Qualified Code(s): J44.1 - Chronic obstructive pulmonary disease with (acute) exacerbation (4) Sinus tachycardia Impression: He has been persistently tachycardic and telemetry has been consistently sinus tachycardia. He is on diltiazem which we have continued given he is on it at home. He reports that he has always had an elevated heart rate for many years and this is not new for him. His troponin was mildly elevated and flat and like ly due to the pulmonary embolism. Do not have echocardiogram available so this was not obtained. We will check a TSH. Given his history of pulmonary embolism and concern for pneumonia, I have recommended observing him 1 more night to ensure there is no concern for worsening infection or pulmonary embolism given his white count is still quite elevated. The patient is agreeable to this. If tomorrow his white count continues to improve and he feels well then we will likely discharge him. (5) Leukocytosis Impression: His white count was elevated on admission at 19.2 with a left shift and peaked at nearly 21,000. This may be reactive due to pulmonary embolism although this could also be due to underlying pneumonia. The rise in his white count may have also been due to the initiation of steroids. His white count is improved but still quite elevated at nearly 19,000 with a left shift. He has been on IV Zosyn for possible pneumonia. There has been no other obvious source of infection and ultrasound of the gallbladder today did not suggest cholecystitis. We will transition him to oral Levaquin today and monitor him for 1 more day. If his white count is stable tomorrow then he will likely be stable for discharge. I will recommend outpatient labs to monitor his CBC. His blood cultures have been negative. (6) Transaminitis Impression: This is secondary to his alcohol abuse. I ordered a right upper quadrant ultrasound today which was consistent with hepatic steatosis. No concern for cholecystitis. I discussed this with the patient regarding the importance of alcohol cessation. (7) Alcohol abuse Impression: He does report daily alcohol use approximate 4-5 beers. I discussed with him that there is evidence of liver disease given his transaminitis and findings on ultrasound. He states that he has spoken to his and they are going to quit alcohol this new year. Have continued him on thiamine and multivitamin. I will ask social work provide him with resources regarding alcohol cessation.
[2020-10-06] MEDS: oxyCODONE 5 MG TABLET PO PRN ×3 (02:30→10:44)
[2020-10-06] MEDS: LEVALBUTEROL 1.25 MG/3 ML NEB INH PRN ×2 (02:36→06:20)
[2020-10-06 04:36] LABS: BASOPHILS # (AUTO) 0.1 10^3/uL (0.0-0.1); BASOPHILS % (AUTO) 0.3 %; EOSINOPHILS # (AUTO) 0.2 10^3/uL (0.0-0.7); EOSINOPHILS % (AUTO) 0.7 %; HGB - HEMOGLOBIN 15.4 g/dL (14.0-18.0); LYMPHOCYTES # (AUTO) 1.1 10^3/uL (1.5-3.5); LYMPHOCYTES % (AUTO) 5.2 %; MEAN CORPUSCULAR HEMOGLOBIN 37.1 pg (27.0-31.0); MEAN CORPUSCULAR HGB CONC 33.4 g/dL (32.0-36.0); MEAN CORPUSCULAR VOLUME 111.1 fL (80.0-94.0); MEAN PLATELET VOLUME 9.1 fL (7.4-11.4); MONOCYTES # (AUTO) 1.3 10^3/uL (0.0-1.0); MONOCYTES % (AUTO) 6.1 %; NEUTROPHILS % (AUTO) 87.2 %; PLT - PLATELET COUNT 499 10^3/uL (130-450); RED BLOOD COUNT 4.15 10^6/uL (4.70-6.10); RED CELL DISTRIBUTION WIDTH 14.4 % (12.0-15.0); WHITE BLOOD COUNT 20.6 x10^3/uL (4.8-10.8)
[2020-10-06 04:50] LABS: ALBUMIN 2.8 g/dL (3.2-5.5); ALBUMIN/GLOBULIN RATIO 0.8 (1.0-2.2); BILIRUBIN,TOTAL 1.1 mg/dL (0.2-1.0); CALCIUM 8.5 mg/dL (8.5-10.3); CREATININE 0.8 mg/dL (0.6-1.2); CRP - C-REACTIVE PROTEIN 8.2 mg/dL (0-1.0); TOTAL PROTEIN 6.4 g/dL (6.7-8.2)
[2020-10-06 05:01] LABS: PLATELET ESTIMATE, MANUAL INCREASED (>450,000) (NORMAL); PLATELET MORPHOLOGY NORMAL APPEARANCE (NORMAL); RBC MORPHOLOGY (MULTIPLE) 1+ MACROCYTOSIS (NORMAL)
[2020-10-06] MEDS: IPRATROPIUM 0.2 MG/ML NEB INH SCH (06:20)
--- NOTE | 2020-10-06 07:53 | Discharge Plan ---
Discharge Plan Problem Reviewed?: Yes Disposition: Home, Self Care Condition: Stable Prescriptions: oxyCODONE [Roxicodone] 5 mg PO Q6HR PRN #12 tablet PRN Reason: Pain Apixaban [Eliquis] 10 mg PO BID 5 Days #20 tablet Apixaban [Eliquis] 5 mg PO BID #60 tablet Levofloxacin 750 mg PO DAILY 3 Days #3 tablet Levothyroxine Sodium [Levothyroxine] 112 mcg PO QDAC #30 capsule Diet: Regular Activity Restrictions: Activity as Tolerated Instruction Topics: Embolism Pulmonary Dc Health Concerns: You were seen in the hospital because you had a blood clot in both of your l ungs. This is likely what was causing you to feel short of breath. You were treated with a blood thinner with improvement in your symptoms. There was concern on the CT scan that you may have had a possible pneumonia or what is called lung infarct from the blood clots. You were treated with antibiotics given your white count has been elevated. There is also concern that you have left-sided rib fracture. We have provided you with some pain medication on discharge to take for a few more days. Your liver numbers were slightly elevated during this hospitalization. An ultrasound of your liver was consistent with inflammation. You have no gallbladder disease. It is recommended that you stop drinking alcohol to prevent further liver inflammation as this can cause cirrhosis. Plan of Treatment: Please take the Eliquis 10 mg twice a day starting this evening until the morning of October 11. You will then switch to 5 mg twice a day starting the evening of October 11. You will need to be on this medication for at least 3 months. Your primary care provider or recyclable products sorter will tell you when to discontinue it. This is to prevent further blood clots. You were found to have low thyroid hormone during this hospitalization. You will need to take the medication called Synthroid every morning. You will need your thyroid labs checked in about 4 to 6 weeks to ensure that they are improving. Please take the antibiotic, Levaquin, daily for 3 more days. This is for a possible pneumonia. You may continue to take the Cardizem and albuterol as you have previously been taking. It is important that you stop drinking alcohol as your liver shows signs of inflammation from this. Care Goals: Please return to the emergency department if you develop worsening shortness of breath, fevers, chills, chest pain. Assessment: The patient expressed understanding of the treatment plan. Additional Instructions or Follow Up instructions: Please follow-up with your primary care provider in 1 to 2 weeks. It is recommended that they follow-up on the labs that were ordered here to evaluate for some of your high blood counts. Should also consider repeating your labs to ensure that they are stable. It is recommended that you be referred to a recyclable products sorter. No Smoking: If you smoke, Please STOP! Call for help.
--- NOTE | 2020-10-06 07:54 | DISCHARGE SUMMARY ---
"Discharge Summary Admit Date: 10/02/20 Discharge Date: 10/06/20 Discharging Provider: Vadim Xavier Primary Care Provider: No PCP - Will be making appointment with [facility] [place] Code Status: Attempt Resuscitation Condition at Discharge: Stable Discharge Disposition: 01 Home, Self Care - DIAGNOSES Admission Diagnoses: Pulmonary embolus Shortness of breath Pneumonia Abdominal pain Elevated liver enzymes Sinus tachycardia COPD Rib fracture Discharge Diagnoses with Status of Each Condition: Bilateral pulmonary embolism - stable. Community-acquired pneumonia - stable. COPD exacerbation - resolved. Tachycardia - stable. Leukocytosis - stable Transaminitis - stable. Alcohol abuse - stable. Left rib fracture - stable. Hypothyroidism - ongoing. - HPI History of Present Illness: H&P per CARLY Ochoa: This a 60-year-old male With a past medical history significant for hypertensio n, COPD, currently smoker, remote Hodgkin lymphoma With radiation and splenectomy who presents the emergency department complain of very dyspnea for 4 to 5 weeks. pt report he had progressively shortness of breath for 4 to 5 weeks with exertion as well as orthopnea. He denies fever, chill but report cough with lots of clear fluid sputum. pt also report he had abdominal pain in the before. He denies chest pain or pressure pressure. He report about 1 month ago when he was on his riding lawnmower and leaning over to his left to hop picker a rock, he felt a crack in his left lower rib which caused his left inferior chest pain, and pain worsening with dyspnea. CXR reveals nondisplaced left lateral 10th rib fracture, Costophrenic angle blunting bilaterally suggestive of minimal effusions and Mildly increased vascularity is present for suggestive of edema. CTA reveals Acute pulmonary emboli identified in the basilar segments of the bilateral lower lobe proximal segmental branches the right middle lobe and likely small proximal segmental pulmonary emboli in the bilateral upper lobes, patchy groundglass opacities involving the right upper lobe and right apex which may represent infectious versus inflammatory process although early Pulmonary infarction not excluded, Neoplastic process is also not excluded. We do not have ECHO study until next week. ER provider talked with Wood Router, CT pulmonary angio does not show signs of acute right heart strain and the patient has had symptoms for nearly 5 weeks and urgent echo in the next 48 hours is not likely indicated. CT of abdomen/pelvis several segments of the bowel demonstrating minimal circumferential wall thickness, acute inflammation or infection process not excluded. Routine laboratory tests that show elevated WBC at 19, lactic acid of 2.9, elevated liver enzyme, slightly elevated BNP, Slightly elevated troponin but flat. In the ER patient is Afebrile, normative BP, tachypneic with respiratory rate in the high 22s but He has normal saturations on room air And tachycardia around 110-115. Discussed the care goal with the patient, patient requests full code - CONSULTS | PROCEDURES Procedures: CT angiogram showed acute pulmonary emboli identified in the basilar segments of the bilateral lower lobes, proximal segmental branch of the right middle lobe, and likely small proximal segmental pulmonary emboli in the bilateral upper lobes. No acute right-sided heart strain. Patchy groundglass opacities over the right upper lobe and right apex which may represent an infectious versus inflammatory process although early pulmonary infarct not excluded. Underlying neoplastic process is also not excluded. Follow-up imaging recommended. Small bilateral pleural effusions with associated compressive atelectasis Stable biapical pleural thickening/scarring. CT the abdomen pelvis reveals a small to moderate amount of scattered free fluid seen to the abdomen. No organized fluid collection. Colonic diverticulosis without acute diverticulitis. Minimal circumferential wall thickening of the gallbladder. Secondary to adjacent ascites. Similar findings are noted on several segments of bowel demonstrating minimal circumferential wall thickening. Acute inflammatory/infectious process not excluded if clinically appropriate. Status post colectomy with fluid noted in the splenic fossa. Hepatic steatosis. A 1.5 similar right hepatic lobe hypodensity which is incompletely ch aracterized. This may represent a cyst versus meningioma. Recommend further characterization with outpatient CT or MRI. Small bilateral pleural effusions and compressive atelectasis. Ribs with PA chest lateral was suggestive of nondisplaced lateral left 10th rib fracture. Venous duplex had a somewhat limited quality of visualization of the calf veins, no definite acute or chronic DVT found. Right upper quadrant ultrasound revealed diffusely increased hepatic echotexture likely due to diffuse hepatic steatosis for sequela of chronic hepatocellular disease. No focal intrahepatic mass lesions. Small right hepatic lobe cyst. Small amount of ascites and small right pleural effusion. - HOSPITAL COURSE Hospital Course: The patient was admitted to the floor for bilateral pulmonary embolism and was started on Lovenox for the first 48 hours. Duplex of the lower extremities were obtained which did not suggest DVT although the calf veins were not well visualized. He was started empirically as well on Zosyn IV given his elevated white count and concern for pneumonia. He was also treated with steroids given he had wheezing on exam and the concern for a COPD exacerbation. His respiratory status improved over the next 48 hours. He was transitioned to oral Eliquis from Lovenox. Despite antibiotics, his white count remained elevated at nearly 20,000. His LFTs were also mildly elevated. He had no right upper quadrant abdominal pain. An ultrasound was obtained to ensure there was no cholecystitis and this was negative. It did reveal hepatic steatosis versus likely chronic hepatocellular disease. This was felt to be secondary to his alcohol abuse given his mild transaminitis and the patient was counseled on alcohol cessation and he was agreeable to this. He did not show evidence of withdrawal during this hospitalization. The Zosyn was discontinued and he was changed to oral Levaquin for possible community-acquired pneumonia although this was felt to possibly be a pulmonary infarct as well. He remained afebrile during his hospitalization. His blood cultures have been negative. There has been no obvious source of infection except for the possible pneumonia. He was discharged on oral Levaquin for 3 more days to complete a total of 7 days of antibiotics. The etiology of his pulmonary embolism was not clear. He will need outpatient hypercoagulable work-up. Given his persistent leukocytosis and thrombocytosis, there was concern for polycythemia and so JAK2 was checked and this is pending. This was discussed with the patient and that he will need outpatient follow-up for this. He was also persistently tachycardic despite being on diltiazem. He reports that this is his baseline that he is always in the 110s to 120s. Review of prior ER records notes that he has also sent this in the past to ER providers. A TSH was checked and was elevated at greater than 30. He was started on Synthroid 112 mcg daily. He will need a repeat TSH in 4 to 6 weeks. Although we had a persistent leukocytosis and tachycardia, the patient felt significantly improved and it was felt that he was now stable for discharge. He will need outpatient follow-up with his primary care provider. Declined for us to make this appointment for him and he was provided with the number for the primary care clinic in [place] and he states that he will make an appointment with him. I asked him once again to follow-up with them to fol low-up with the JAK2 and he will need a repeat TSH. I also recommended a hematology consult. He was agreeable to this. I did provide him with 12 tablets of 5 mg oxycodone for the left chest pain. Although CT did not suggest rib fracture, this was evident on the initial chest x-ray. He also has clinical evidence of rib fracture. - ALLERGIES Allergies/Adverse Reactions: Allergies Allergy/AdvReac Type Severity Reaction Status Date / Time No Known Drug Allergies Allergy Verified 10/02/20 10:51 - MEDICATIONS Home Medications: Ambulatory Orders Medication Instructions Recorded Confirmed diltiaZEM CD [Cardizem Cd] 180 mg PO BID 08/17/19 10/02/20 Albuterol Sulf [Ventolin Hfa 2 puffs INH Q6HR PRN 10/02/20 10/02/20 Inhaler] Apixaban [Eliquis] 5 mg PO BID #60 tablet 10/06/20 Apixaban [Eliquis] 10 mg PO BID 5 Days #20 tablet 10/06/20 Levofloxacin 750 mg PO DAILY 3 Days #3 tablet 10/06/20 Levothyroxine Sodium 112 mcg PO QDAC #30 capsule 10/06/20 [Levothyroxine] oxyCODONE [Roxicodone] 5 mg PO Q6HR PRN #12 tablet 10/06/20 - PHYSICAL EXAM AT DISCHARGE General Appearance: positive: No acute distress, Alert Eyes Bilateral: positive: Normal inspection, Conjunctivae nml ENT: positive: ENT inspection nml Neck: positive: Nml inspection Respiratory: positive: No respiratory distress. negative: Wheezes, Rales Cardiovascular: positive: Tachycardia. negative: Irregularly irregular, Bradycardia, Systolic murmur Abdomen: positive: Non-tender, No distention. negative: Tenderness, Guarding, Rebound Skin: positive: Warm, Dry Extremities: positive: Pedal edema (+1 pitting edema in the right lower extremity.). negative: Joint swelling, Mala's sign/cords Neurologic/Psychiatric: negative: Disoriented to person, Disoriented to place Physical Exam Other/Comments: Vital Signs - 24 hr 10/05/20 10/05/20 10/05/20 12:45 15:04 16:00 Temperature 36.5 C Heart Rate 108 H Heart Rate [ 120 H 106 H Brachial] Heart Rate [ Monitoring electrodes] Respiratory 20 20 18 Rate Blood Pressure 106/78 [Right Brachial artery] O2 Saturation 94 95 10/05/20 10/05/20 10/05/20 19:16 19:32 23:48 Temperature 36.6 C 36.6 C Heart Rate 120 H Heart Rate [ 114 H 105 H Brachial] Heart Rate [ Monitoring electrodes] Respiratory 18 18 18 Rate Blood Pressure 121/79 143/92 H [Right Brachial artery] O2 Saturation 95 94 10/06/20 10/06/20 10/06/20 02:37 03:30 06:22 Temperature 36.4 C L Heart Rate 105 H 110 H Heart Rate [ Brachial] Heart Rate [ 106 H Monitoring electrodes] Respiratory 18 20 18 Rate Blood Pressure 127/72 [Right Brachial artery] O2 Saturation 94 10/06/20 10/06/20 08:02 10:37 Temperature 36.6 C 36.6 C Heart Rate Heart Rate [ 111 H 111 H Brachial] Heart Rate [ Monitoring electrodes] Respiratory 20 20 Rate Blood Pressure 127/87 H 126/85 H [Right Brachial artery] O2 Saturation 92 92 Oxygen O2 Source Room air - LABS Result Diagrams: 10/06/20 04:30 10/06/20 04:30 Other Lab Results: Laboratory Results - last 24 hr 10/06/20 10/06/20 10/06/20 04:30 04:30 04:30 WBC 20.6 H RBC 4.15 L Hgb 15.4 Hct 46.1 MCV 111.1 H MCH 37.1 H MCHC 33.4 RDW 14.4 Plt Count 499 H MPV 9.1 Neut # (Auto) 18.0 H Lymph # (Auto) 1.1 L Crisp # (Auto) 1.3 H Eos # (Auto) 0.2 Baso # (Auto) 0.1 Absolute Nucleated RBC 0.00 Nucleated RBC % 0.0 Manual Slide Review Indicated Platelet Estimate INCREASED (>450,000) Platelet Morphology NORMAL APPEARANCE RBC Morph Micro Appear 1+ MACROCYTOSIS Sodium 135 Potassium 4.4 Chloride 96 L Carbon Dioxide 29 Anion Gap 10.0 BUN 18 Creatinine 0.8 Estimated GFR (MDRD) 98 Glucose 130 H Calcium 8.5 Total Bilirubin 1.1 H AST 152 H ALT 66 H Alkaline Phosphatase 187 H C-Reactive Protein 8.2 H Total Protein 6.4 L Albumin 2.8 L Globulin 3.6 Albumin/Globulin Ratio 0.8 L Vitamin B12 Folate TSH 36.04 H Free T4 10/06/20 04:30 WBC RBC Hgb Hct MCV MCH MCHC RDW Plt Count MPV Neut # (Auto) Lymph # (Auto) Crisp # (Auto) Eos # (Auto) Baso # (Auto) Absolute Nucleated RBC Nucleated RBC % Manual Slide Review Platelet Estimate Platelet Morphology RBC Morph Micro Appear Sodium Potassium Chloride Carbon Dioxide Anion Gap BUN Creatinine Estimated GFR (MDRD) Glucose Calcium Total Bilirubin AST ALT Alkaline Phosphatase C-Reactive Protein Total Protein Albumin Globulin Albumin/Globulin Ratio Vitamin B12 685 Folate 10.71 TSH Free T4 0.70 - DIAGNOSTIC IMAGING Diagnostic Imaging Results: Final report reviewed - FOLLOW UP Follow Up: He will be establishing care with a primary care provider next week. I asked him to take the Eliquis and Synthroid as prescribed. He will need a repeat TSH in 4 to 6 weeks. He will also need to follow-up on the JAK2 results. I also recommended hematology referral. He will need outpatient hypercoagulable work- up. - TIME SPENT Time Spent in Discharge (Minutes): 37"
[2020-10-06] MEDS: predniSONE 20 MG TABLET PO SCH (07:57)
[2020-10-06] MEDS: SACCHAROMYCES BOULARDII 250 MG CAPSULE PO SCH (07:57)
[2020-10-06] MEDS: PRENATAL VITAMIN TABLET PO SCH (07:57)
[2020-10-06 08:24] LABS: FREE T4 (FREE THYROXINE) 0.7 ng/dL (0.58-1.64)
[2020-10-06 08:32] LABS: FOLATE 10.71 ng/mL (5.90 - >24.8)
[2020-10-06] MEDS: diltiaZEM CD 180 MG CAPSULE PO SCH (08:40)
[2020-10-06] MEDS: APIXABAN 5 MG TABLET PO SCH (08:40)
[2020-10-06] MEDS: THIAMINE 100 MG TABLET PO SCH (08:41)
[2020-10-06] MEDS: SODIUM CHLORIDE FLUSH 0.9% 10 ML SYRINGE IVP SCH (08:41)
[2020-10-06 10:38] VITALS: BP 126/85
[2020-10-06] MEDS: levoFLOXacin 250 MG TABLET PO SCH (11:04)
== END 2020-10-06 11:20 | disposition home or self-care (01) | DRG 175 ==
LOC: ED 10:42 → MS2 16:56
PROVIDERS: ADMIT Nurse Practitioner Gerontology; ATTEND Internal Medicine
DX: I26.94 Multiple subsegmental thrombotic pulmonary emboli without acute cor pulmonale (principal); J44.9 Chronic obstructive pulmonary disease, unspecified; J18.9 Pneumonia, unspecified organism; S22.32XA Fracture of one rib, left side, initial encounter for closed fracture; J44.0 Chronic obstructive pulmonary disease with (acute) lower respiratory infection; J44.1 Chronic obstructive pulmonary disease with (acute) exacerbation; Y92.9 Unspecified place or not applicable; F17.210 Nicotine dependence, cigarettes, uncomplicated; D72.829 Elevated white blood cell count, unspecified; J90 Pleural effusion, not elsewhere classified; R74.02 Elevation of levels of lactic acid dehydrogenase [LDH]; R00.0 Tachycardia, unspecified; R74.01 Elevation of levels of liver transaminase levels; F10.10 Alcohol abuse, uncomplicated; X50.1XXA Overexertion from prolonged static or awkward postures, initial encounter; Y93.I9 Activity, other involving external motion; E03.9 Hypothyroidism, unspecified; I10 Essential (primary) hypertension; Z85.71 Personal history of Hodgkin lymphoma; K57.30 Diverticulosis of large intestine without perforation or abscess without bleeding; K76.0 Fatty (change of) liver, not elsewhere classified; R16.0 Hepatomegaly, not elsewhere classified; D47.3 Essential (hemorrhagic) thrombocythemia; Z90.81 Acquired absence of spleen; K52.9 Noninfective gastroenteritis and colitis, unspecified; R74.8 Abnormal levels of other serum enzymes
CPT/HCPCS: 36415; 71045; 71101; 71275; 74177; 76705; 80053; 81003; 81270; 82607; 82746; 83605; 83690; 83735; 83880; 84439; 84443; 84484; 85025; 85610; 86140; 87040; 87631; 93005; 93970; 94640; 96365; 96366; 96368; 96372; 96375; 99284; 99285; A9270; J1650; J3370; J7512; Q9967; 0202U; 81001; 87086

== ENCOUNTER 2020-10-11 10:21 | Emergency (ER) | payer MEDICARE ==
[2020-10-11] MEDS ORDERED: SODIUM CHLORIDE 0.9% 1,000 ML IV STA (10:32)
[2020-10-11] MEDS ORDERED: LORazepam 2 MG/ML VIAL IVP STA ×2 (10:46→11:00)
[2020-10-11 10:59] LABS: BASOPHILS % (AUTO) 0.4 %; EOSINOPHILS % (AUTO) 0.8 %; HCT - HEMATOCRIT 51.8 % (42.0-52.0); HGB - HEMOGLOBIN 18.2 g/dL (14.0-18.0); LYMPHOCYTES % (AUTO) 6.6 %; MEAN CORPUSCULAR HEMOGLOBIN 37.4 pg (27.0-31.0); MEAN CORPUSCULAR HGB CONC 35.1 g/dL (32.0-36.0); MEAN CORPUSCULAR VOLUME 106.4 fL (80.0-94.0); MONOCYTES % (AUTO) 6.3 %; NEUTROPHILS % (AUTO) 85.3 %; PLT - PLATELET COUNT 514 10^3/uL (130-450); RED BLOOD COUNT 4.87 10^6/uL (4.70-6.10); RED CELL DISTRIBUTION WIDTH 14.1 % (12.0-15.0); WHITE BLOOD COUNT 20.1 x10^3/uL (4.8-10.8)
[2020-10-11 11:01] LABS: ABNORMAL LYMPHS % (MANUAL) 0 %
[2020-10-11 11:12] LABS: ALBUMIN 3.1 g/dL (3.2-5.5); ALBUMIN/GLOBULIN RATIO 0.7 (1.0-2.2); CALCIUM 8.7 mg/dL (8.5-10.3); CREATININE 0.6 mg/dL (0.6-1.2); POTASSIUM 4.5 mmol/L (3.5-5.0); TOTAL PROTEIN 7.3 g/dL (6.7-8.2)
--- NOTE | 2020-10-11 11:13 | XRAY Report ---
PROCEDURE: Chest 1 View X-Ray INDICATIONS: chest pain TECHNIQUE: One view of the chest was acquired. COMPARISON: Chest x-ray 10/04/2020, CT chest angiogram 10/02/2020, chest x-ray 09/08/2018. FINDINGS: Surgical changes and devices: None. Lungs and pleura: There is hyperinflation of the lungs with flattening of the hemidiaphragms compati ble with COPD redemonstrated. Mild blunting of the costophrenic angles bilaterally may represent pleu ral thickening or small effusions. There is prominent vascular prominence suggestive of mild edema. L inear medial bibasilar opacities are consistent with atelectasis or consolidation. Mediastinum: Mediastinal contours appear unchanged. Heart size is normal. Bones and chest wall: No suspicious bony lesions. Overlying soft tissues appear unremarkable. IMPRESSION: 1. Findings compatible with COPD redemonstrated. 2. Pulmonary vascular prominence suggestive of mild edema. 3. Blunting of the costophrenic angles consistent with small effusions or pleural thickening. 4. Medial bibasilar atelectasis or consolidation. Reviewed by: Lincoln Beavers MD on 10/11/2020 11:12 AM PST Approved by: Lincoln Beavers MD on 10/11/2020 11:12 AM PST Station ID: [id number]
[2020-10-11 11:15] LABS: GLUCOSE, URINE (UA) NEGATIVE (NEGATIVE); KETONES,URINE (UA) TRACE mg/dL (NEGATIVE); LEUKOCYTE ESTERASE, URINE NEGATIVE (NEGATIVE); NITRITE,URINE POSITIVE (NEGATIVE); OCCULT BLOOD,URINE NEGATIVE (NEGATIVE); PROTEIN,URINE 30 mg/dL (NEGATIVE); UROBILINOGEN,URINE 1 (NORMAL) E.U./dL (NORMAL)
[2020-10-11 11:20] LABS: BILIRUBIN,URINE MODERATE (NEGATIVE); CLARITY,URINE HAZY (CLEAR); ICTOTEST,URINE POSITIVE
[2020-10-11 11:24] LABS: BAND NEUTROPHILS % (MANUAL) 3 %; LYMPHOCYTES # (MANUAL) 1.8 10^3/uL (1.5-3.5); LYMPHOCYTES % (MANUAL) 9 %; MONOCYTES # (MANUAL) 1.2 10^3/uL (0.0-1.0); NEUTROPHILS # (MANUAL) 17.1 10^3/uL (1.5-6.6)
[2020-10-11 11:26] LABS: DIFFERENTIAL COMMENT MANUAL DIFFERENTIAL; PLATELET ESTIMATE, MANUAL INCREASED (>450,000) (NORMAL); PLATELET MORPHOLOGY NORMAL APPEARANCE (NORMAL); WBC MORPHOLOGY (MULTIPLE) NORMAL APPEARANCE (NORMAL)
[2020-10-11 11:32] LABS: BACTERIA,URINE Few /HPF (None Seen); MUCUS,URINE Marked Strands; RBC,URINE 0-5 /HPF (0-5); SQUAMOUS EPITHELIAL CELL,UR NONE SEEN (<= Few); WBC,URINE 0-3 /HPF (0-3)
[2020-10-11 12:05] LABS: B. PARAPERTUSSIS- RESP PCR PAN NOT DETECTED; B. PERTUSSIS- RESP PCR PANEL NOT DETECTED; C. PNEUMONIAE- RESP PCR PANEL NOT DETECTED; CORONAVIRUS 229E-RESP PCR NOT DETECTED; CORONAVIRUS HKU1-RESP PCR NOT DETECTED; CORONAVIRUS NL63-RESP PCR NOT DETECTED; CORONAVIRUS OC43-RESP PCR NOT DETECTED; HUMAN METAPNEUMOVIRUS NOT DETECTED; INFLUENZA A- RESP PCR PANEL NOT DETECTED; INFLUENZA B - RESP PCR PANEL NOT DETECTED; M. PNEUMONIAE- RESP PCR PANEL NOT DETECTED; PARAINFLUENZA VIRUS 1 NOT DETECTED; PARAINFLUENZA VIRUS 2 NOT DETECTED; PARAINFLUENZA VIRUS 3 NOT DETECTED; PARAINFLUENZA VIRUS 4 NOT DETECTED; RHINOVIRUS/ENTEROVIRUS NOT DETECTED; RSV- RESP PCR PANEL NOT DETECTED; SARS-CoV-2 -RESP PCR PANEL NOT DETECTED
[2020-10-11] MEDS ORDERED: IOVERSOL 320 100 ML VIAL IVP ONE ×2 (13:28→14:01)
--- NOTE | 2020-10-11 14:17 | CT Report ---
PROCEDURE: ANGIO CHEST W/WO INDICATIONS: PE, feeling worse, CONTRAST: IV CONTRAST: Optiray 320 ml: 80 PO CONTRAST: *NO PO CONTRAST TECHNIQUE: After the administration of intravenous contrast, 2 mm thick sections acquired from the pulmonary api lorena to the posterior costophrenic angles. 3-dimensional maximum intensity projection (MIP) coronal a nd sagittal reformats were then acquired through the thorax. For radiation dose reduction, the follow ing was used: automated exposure control, adjustment of mA and/or kV according to patient size. COMPARISON: 10/02/2020 FINDINGS: Image quality: Excellent. Pulmonary arteries: There are bilateral pulmonary emboli involving the basal segments of the bilatera l lower lobes, as well as the proximal segmental branches of the right middle lobe and both upper lob es, unchanged compared to the prior CT on 10/02/2020. Lungs and pleura: There is a large right and moderate left pleural effusion with compressive atelecta sis. No focal consolidation or mass. This is worse compared to the prior CT on 10/02/2020. Mediastinum: Heart size is normal, without pericardial effusion. No mediastinal or hilar adenopathy . Thoracic aorta is normal in caliber and enhancement. Esophagus is normal in caliber, without hiat al hernia. Bones and chest wall: No suspicious bony lesions. Ribs and thoracic spine appear intact throughout. The thyroid is normal. No axillary or supraclavicular adenopathy. Abdomen: Visualized upper abdominal solid organs appear normal in the early arterial phase of enhanc ement. IMPRESSION: 1. Pulmonary emboli as above, unchanged compared to 10/02/2020. 2. Large right and moderate left pleural effusions with adjacent compressive atelectasis, worse homa red to the prior CT on 10/02/2020. Reviewed by: Dionte Johansen on 10/11/2020 2:16 PM PST Approved by: Dionte Johansen on 10/11/2020 2:16 PM PST Station ID: [id number]
--- NOTE | 2020-10-11 15:48 | ED Physician Documentation ---
History of Present Illness - Stated complaint Stated Complaint: SOA,WEAK,CANT EAT - Chief complaint Chief Complaint: Cardiac - History obtained from History obtained from: Patient - Additonal information Additional information: Patient comes emergency department chief complaint of feeling more tired and short of breath progressively since being discharged from the hospital several days ago after diagnosis with multiple pulmonary emboli. The patient also has a history of COPD. He was admitted for several days, during which time he was started on Eliquis and found to be persistently tachycardic. The patient did not decline while in the hospital and was felt to be stable and discharged home. Patient states that since discharge, he has just had progressive sense of tiredness and that his shortness of breath has been gradually worsening day by day. He denies any new chest pain. No fevers or chills. No edema in his lower extremities. He has been taking his Eliquis as directed. He is not on oxygen at home. The patient has not yet had a chance to follow-up. No other complaints at this time. Review of Systems Ten Systems: 10 systems reviewed and negative Constitutional: reports: Fatigue. denies: Fever, Chills, Myalgias Eyes: reports: Reviewed and negative Ears: reports: Reviewed and negative Nose: reports: Reviewed and negative Throat: reports: Reviewed and negative Cardiac: reports: Reviewed and negative Respiratory: reports: Dyspnea GI: reports: Reviewed and negative : reports: Reviewed and negative Skin: reports: Reviewed and negative Musculoskeletal: reports: Reviewed and negative Neurologic: reports: Reviewed and negative Psychiatric: reports: Reviewed and negative Endocrine: reports: Reviewed and negative Immunocompromised: reports: Reviewed and negative PD PAST MEDICAL HISTORY - Past Medical History Cardiovascular: Arrhythmia Respiratory: COPD Neuro: None Endocrine/Autoimmune: None GI: None : None HEENT: None Psych: Depression, Anxiety Musculoskeletal: Osteoarthritis, Chronic back pain Derm: None - Past Surgical History Past Surgical History: Yes General: Splenectomy Ortho: Spine surgery - Present Medications Home Medications: Ambulatory Orders Medication Instructions Recorded Confirmed diltiaZEM CD [Cardizem Cd] 180 mg PO BID 08/17/19 10/02/20 Albuterol Sulf [Ventolin Hfa 2 puffs INH Q6HR PRN 10/02/20 10/02/20 Inhaler] Apixaban [Eliquis] 5 mg PO BID #60 tablet 10/06/20 Apixaban [Eliquis] 10 mg PO BID 5 Days #20 tablet 10/06/20 Levofloxacin 750 mg PO DAILY 3 Days #3 tablet 10/06/20 Levothyroxine Sodium 112 mcg PO QDAC #30 capsule 10/06/20 [Levothyroxine] oxyCODONE [Roxicodone] 5 mg PO Q6HR PRN #12 tablet 10/06/20 Zolpidem [Ambien] 5 mg PO HS PRN #20 tablet 10/11/20 - Allergies Allergies/Adverse Reactions: Allergies Allergy/AdvReac Type Severity Reaction Status Date / Time No Known Drug Allergies Allergy Verified 10/11/20 10:37 - Social History Does the pt smoke?: Yes Smoking Status: Current every day smoker Does the pt drink ETOH?: Yes Does the pt have substance abuse?: No - Immunizations Immunizations are current?: Yes - POLST Patient has POLST: No PD ED PE NORMAL - Vitals Vital signs reviewed: Yes - General General: Alert and oriented X 3, No acute distress (Patient has slightly labored respirations, but actually appears fairly well overall. He is bright and alert and speaking in full sentences without difficulty.) - HEENT HEENT: Atraumatic, PERRL, EOMI, Moist mucous membranes - Neck Neck: Supple, no meningeal sign - Cardiac Cardiac: No murmur, Strong equal pulses, Other (Moderate tachycardia) - Respiratory Respiratory: Clear bilaterally, Other (Mildly labored respirations, but speaking in full sentences.) - Abdomen Abdomen: Soft, Non tender, Non distended - Derm Derm: Normal color, Warm and dry, No rash - Extremities Extremities: No deformity, No edema, No calf tenderness / cord - Neuro Neuro: Alert and oriented X 3, Other (grossly normal) - Psych Psych: Normal mood, Normal affect Results - Vitals Vitals: Oxygen O2 Source Room air - EKG (time done) 1040 Rate: Rate (enter#) (132) Rhythm: Sinus tachycardia, Normal P waves Gratz: Normal Intervals: Normal ID QRS: Normal Ischemia: Normal ST segments Compare to prior EKG: Changed from prior EKG (10/02/20: repol abnormalities existing; PAC's new today.) Computer interpretation: Disagree with computer (unlikely diffuse cardiac ischemia.) - Labs Labs: Microbiology 10/11/20 11:00 Urine Culture - Final Urine,Clean Catch No growth Laboratory Tests 10/11/20 10/11/20 10/11/20 10:50 10:50 10:50 WBC 20.1 H RBC 4.87 Hgb 18.2 H Hct 51.8 MCV 106.4 H MCH 37.4 H MCHC 35.1 RDW 14.1 Plt Count 514 H MPV 9.0 Neut # (Auto) Not Reportable Lymph # (Auto) Not Reportable Harmon # (Auto) Not Reportable Eos # (Auto) Not Reportable Baso # (Auto) Not Reportable Absolute Nucleated RBC Not Reportable Total Counted 100 Band Neuts % (Manual) 3 Abnorm Lymph % (Manual) 0 Nucleated RBC % Not Reportable Neutrophils # (Manual) 17.1 H Lymphocytes # (Manual) 1.8 Monocytes # (Manual) 1.2 H Eosinophils # (Manual) 0.0 Basophils # (Manual) 0.0 Differential Comment MANUAL DIFFERENTIAL WBC Morphology NORMAL APPEARANCE Platelet Estimate INCREASED (>450,000) Platelet Morphology NORMAL APPEARANCE RBC Morph Micro Appear 2+ MACROCYTOSIS Sodium 134 L Potassium 4.5 Chloride 96 L Carbon Dioxide 26 Anion Gap 12.0 BUN 13 Creatinine 0.6 Estimated GFR (MDRD) 137 Glucose 119 H Lactic Acid Calcium 8.7 Total Bilirubin 2.0 H AST 113 H ALT 63 H Alkaline Phosphatase 316 H Troponin I High Sens 26.0 H* B-Natriuretic Peptide Total Protein 7.3 Albumin 3.1 L Globulin 4.2 Albumin/Globulin Ratio 0.7 L Lipase 82 H Urine Color Urine Clarity Urine pH Ur Specific [place] Urine Protein Urine Glucose (UA) Urine Ketones Urine Occult Blood Urine Nitrite Urine Bilirubin Urine Urobilinogen Ur Leukocyte Esterase Urine RBC Urine WBC Ur Squamous Epith Cells Urine Bacteria Urine Mucus Ur Microscopic Review Urine Culture Comments Nasal Adenovirus (PCR) Nasal B. parapertussis DNA (PCR) Nasal Coronavir 229E PCR Nasal Coronavir HKU1 PCR Nasal Coronavir NL63 PCR Nasal Coronavir OC43 PCR Nasal Enterovir/Rhinovir PCR Nasal Influenza B PCR Nasal Influenza A PCR Nasal Parainfluen 1 PCR Nasal Parainfluen 2 PCR Nasal Parainfluen 3 PCR Nasal Parainfluen 4 PCR Nasal RSV (PCR) Nasal B.pertussis DNA PCR Nasal C.pneumoniae (PCR) [place] Human Metapneumo PCR Nasal M.pneumoniae (PCR) Nasal SARS-CoV-2 (PCR) 10/11/20 10/11/20 10/11/20 10:50 10:50 11:00 WBC RBC Hgb Hct MCV MCH MCHC RDW Plt Count MPV Neut # (Auto) Lymph # (Auto) Harmon # (Auto) Eos # (Auto) Baso # (Auto) Absolute Nucleated RBC Total Counted Band Neuts % (Manual) Abnorm Lymph % (Manual) Nucleated RBC % Neutrophils # (Manual) Lymphocytes # (Manual) Monocytes # (Manual) Eosinophils # (Manual) Basophils # (Manual) Differential Comment WBC Morphology Platelet Estimate Platelet Morphology RBC Morph Micro Appear Sodium Potassium Chloride Carbon Dioxide Anion Gap BUN Creatinine Estimated GFR (MDRD) Glucose Lactic Acid 1.9 Calcium Total Bilirubin AST ALT Alkaline Phosphatase Troponin I High Sens B-Natriuretic Peptide 262 H Total Protein Albumin Globulin Albumin/Globulin Ratio Lipase Urine Color DARK YELLOW Urine Clarity HAZY Urine pH 6.0 Ur Specific [place] 1.020 Urine Protein 30 H Urine Glucose (UA) NEGATIVE Urine Ketones TRACE Urine Occult Blood NEGATIVE Urine Nitrite POSITIVE H Urine Bilirubin MODERATE H Urine Urobilinogen 1 (NORMAL) Ur Leukocyte Esterase NEGATIVE Urine RBC 0-5 Urine WBC 0-3 Ur Squamous Epith Cells NONE SEEN Urine Bacteria Few Urine Mucus Marked Strands Ur Microscopic Review INDICATED Urine Culture Comments INDICATED Nasal Adenovirus (PCR) Nasal B. parapertussis DNA (PCR) Nasal Coronavir 229E PCR Nasal Coronavir HKU1 PCR Nasal Coronavir NL63 PCR Nasal Coronavir OC43 PCR Nasal Enterovir/Rhinovir PCR Nasal Influenza B PCR Nasal Influenza A PCR Nasal Parainfluen 1 PCR Nasal Parainfluen 2 PCR Nasal Parainfluen 3 PCR Nasal Parainfluen 4 PCR Nasal RSV (PCR) Nasal B.pertussis DNA PCR Nasal C.pneumoniae (PCR) [place] Human Metapneumo PCR Nasal M.pneumoniae (PCR) Nasal SARS-CoV-2 (PCR) 10/11/20 10/11/20 11:00 13:05 WBC RBC Hgb Hct MCV MCH MCHC RDW Plt Count MPV Neut # (Auto) Lymph # (Auto) Harmon # (Auto) Eos # (Auto) Baso # (Auto) Absolute Nucleated RBC Total Counted Band Neuts % (Manual) Abnorm Lymph % (Manual) Nucleated RBC % Neutrophils # (Manual) Lymphocytes # (Manual) Monocytes # (Manual) Eosinophils # (Manual) Basophils # (Manual) Differential Comment WBC Morphology Platelet Estimate Platelet Morphology RBC Morph Micro Appear Sodium Potassium Chloride Carbon Dioxide Anion Gap BUN Creatinine Estimated GFR (MDRD) Glucose Lactic Acid Calcium Total Bilirubin AST ALT Alkaline Phosphatase Troponin I High Sens 26.0 H* B-Natriuretic Peptide Total Protein Albumin Globulin Albumin/Globulin Ratio Lipase Urine Color Urine Clarity Urine pH Ur Specific [place] Urine Protein Urine Glucose (UA) Urine Ketones Urine Occult Blood Urine Nitrite Urine Bilirubin Urine Urobilinogen Ur Leukocyte Esterase Urine RBC Urine WBC Ur Squamous Epith Cells Urine Bacteria Urine Mucus Ur Microscopic Review Urine Culture Comments Nasal Adenovirus (PCR) NOT DETECTED Nasal B. parapertussis DNA (PCR) NOT DETECTED Nasal Coronavir 229E PCR NOT DETECTED Nasal Coronavir HKU1 PCR NOT DETECTED Nasal Coronavir NL63 PCR NOT DETECTED Nasal Coronavir OC43 PCR NOT DETECTED Nasal Enterovir/Rhinovir PCR NOT DETECTED Nasal Influenza B PCR NOT DETECTED Nasal Influenza A PCR NOT DETECTED Nasal Parainfluen 1 PCR NOT DETECTED Nasal Parainfluen 2 PCR NOT DETECTED Nasal Parainfluen 3 PCR NOT DETECTED Nasal Parainfluen 4 PCR NOT DETECTED Nasal RSV (PCR) NOT DETECTED Nasal B.pertussis DNA PCR NOT DETECTED Nasal C.pneumoniae (PCR) NOT DETECTED [place] Human Metapneumo PCR NOT DETECTED Nasal M.pneumoniae (PCR) NOT DETECTED Nasal SARS-CoV-2 (PCR) NOT DETECTED - Rads (name of study) CXR Radiology: Final report received, EMP read indepedently, See rad report (COPD; vascular prominence; blunting of angles, c/w small effusions; small basilar atelectasis) CTA chest Radiology: Prelim report reviewed, See rad report (large R, mod L pleural effusions with compressive atelectasis; findings increased since 10/02. Unchanged PE's.) PD MEDICAL DECISION MAKING - ED course Complexity details: reviewed old records, reviewed results, re-evaluated patient, considered differential, d/w patient ED course: The patient appeared mildly anxious, and had slightly labored respirations, but otherwise, actually appeared fairly well. He was worked up initially with labs, which showed a mildly elevated troponin, a BNP unchanged from his inpatient values, and a normal lactic acid level. His chest x-ray showed mild blunting of the costophrenic angles, consistent with small pleural effusions. His cardiac silhouette was small. No infiltrates were noted. The patient's repeat troponin was unchanged. The patient had been given a liter of 0.9 normal saline and a small dose of Ativan, and his heart rate had come down from the mid 130s to the 110's. I was concerned that he was still tachycardic and in light of his recent pulmonary emboli, I did go ahead and repeat a CTA of the thorax. This showed unchanged clot burden, but with moderate to large right pleural effusion, which had gotten larger in the interim since initial CTA. I initially discussed the case with radiologist. The patient otherwise seemed to be doing okay and I felt that most likely, his symptoms were secondary to the increased size of pleural effusion. Because the patient's chest x-ray showed so little pleural effusion, in contrast to the CT findings, I was concerned about draining this myself in the emergency department, due to the risk of pneumothorax. The radiologist stated his willingness to do a guided drainage, but was concerned about the fact that the patient is on Eliquis. As such, I discussed the patient with Dr. Montalvo, who was hospitalist on duty. She reviewed the patient's studies and did note that the patient had not had an echocardiogram and that he should have one in follow-up. She felt that at this point in time, it was best for the patient not to stop Eliquis and that given the patient has normal oxygen saturation and is not in severe respiratory distress, she felt that it would be better to hold off on thoracentesis unless absolutely necessary. As such, she did not feel the patient would benefit from admission to the hospital, as he was stable, and echo would not be available for the next several days, given the holiday, followed by the weekend. I have discussed this with the patient and explained the situation to him. The patient has expressed understanding. I have discussed with him that should he develop any signficant increase in shortness of breath, he should return to the emergency department. Otherwise, he should call his primary care physician first thing after the weekend to set up a follow-up appointment for as soon as possible next week. Departure - Departure Disposition: 01 Home, Self Care Clinical Impression: Pleural effusion Dyspnea Qualifiers: Dyspnea type: shortness of breath Qualified Code(s): R06.02 - Shortness of breath Condition: Stable Instructions: ED Dyspnea Shortness of Breath, ED Effusion Pleural Prescriptions: Zolpidem [Ambien] 5 mg PO HS PRN #20 tablet PRN Reason: Insomnia Comments: Extensive work-up today shows that most of your values are stable. However, you do have a buildup of fluid in the chest cavity around the lungs. This is of medium size, And does not necessarily need emergent; however, it is probably a significant contributor to your sense of shortness of breath at this time. As such, your case has been discussed with both the radiologist and our cardiology- trained pastry sous chef, Dr. Montalvo. The consensus at this point is that if we were to attempt to drain the fluid, you would need to be off of your blood thinners for 24 to 48 hours, at minimum, to minimize the risk of bleeding during the procedure. At this point in time, because of your recent clots, it is very important that you stay on the blood thinners. With this in mind, and in consideration of your normal blood oxygen, the size of the fluid buildup at this point does not warrant taking you off of them. Because the fluid will most likely be reabsorbed as your lungs heal, we will hold off on draining your chest cavity, unless more fluid builds up in your condition worsens. It may be that with some time, the fluid will simply disappear and your breathing will improve on its own. If over the weekend, you begin to become severely short of breath or develop a fever, you will need to return to the emergency department. Discharge Date/Time: 10/11/20 16:31
[2020-10-11 16:14] VITALS: BP 135/88
== END 2020-10-11 16:31 | disposition home or self-care (01) ==
LOC: ED 10:21
DX: J90 Pleural effusion, not elsewhere classified (principal); J44.9 Chronic obstructive pulmonary disease, unspecified; F17.200 Nicotine dependence, unspecified, uncomplicated; Z86.711 Personal history of pulmonary embolism; Z79.01 Long term (current) use of anticoagulants
CPT/HCPCS: 36415; 71045; 71275; 80053; 81001; 83605; 83690; 83880; 84484; 85025; 87086; 87631; 93005; 96361; 96374; 99284; J2060; Q9967; 0202U; 81003

== ENCOUNTER 2020-10-23 17:24 | Outpatient (CLI) | payer MEDICARE ==
[2020-10-23 18:01] LABS: HGB - HEMOGLOBIN 16.4 g/dL (14.0-18.0); MEAN CORPUSCULAR HEMOGLOBIN 36.9 pg (27.0-31.0); MEAN CORPUSCULAR HGB CONC 34.3 g/dL (32.0-36.0); MEAN CORPUSCULAR VOLUME 107.4 fL (80.0-94.0); MEAN PLATELET VOLUME 9.1 fL (7.4-11.4); RED BLOOD COUNT 4.45 10^6/uL (4.70-6.10); RED CELL DISTRIBUTION WIDTH 13.8 % (12.0-15.0); WHITE BLOOD COUNT 14.9 x10^3/uL (4.8-10.8)
[2020-10-23 18:14] LABS: ALBUMIN 2.7 g/dL (3.2-5.5); ALBUMIN/GLOBULIN RATIO 0.7 (1.0-2.2); BILIRUBIN,TOTAL 0.7 mg/dL (0.2-1.0); CALCIUM 8.5 mg/dL (8.5-10.3); CREATININE 0.6 mg/dL (0.6-1.2); TOTAL PROTEIN 6.4 g/dL (6.7-8.2)
[2020-10-23 19:52] LABS: INR 1.4 (0.8-1.2); PT - PROTHROMBIN TIME 15.7 secs (9.9-12.6)
--- OUTSIDE RECORDS SUMMARY | 2020-10-24 04:54 | EXTERNAL MEDICAL SUMMARY RPT | Continuity of Care Document ---
:1960 Demographics Phone Unavailable Preferred Language Hungarian Marital Status Unknown Catholic Affiliation Unknown Race Unknown Ethnic Group Unknown Author Organization [place] Address [address] [place] [address] Phone Care Team Providers Name Role Phone PA-C Unavailable Unavailable Ibanez Unavailable Unavailable FACP Unavailable Unavailable Problems date description facility 2020-10-02 16:56 ESSENTIAL (HEMORRHAGIC) [facility] THROMBOCYTHEMIA 2020-10-02 16:56 HYPOTHYROIDISM, UNSPECIFIED [facility] 2020-10-02 16:56 ALCOHOL ABUSE, UNCOMPLICATED [facility] 2020-10-02 16:56 ESSENTIAL (PRIMARY) HYPERTENSION [facility] 2020-10-02 16:56 MULT SUBSEGMENTAL PULMON EMBOLI [facility]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 2020-10-02 16:56 PNEUMONIA, UNSPECIFIED ORGANISM [facility] 2020-10-02 16:56 CHR OBSTRUCTIVE PULMON DISEASE [facility] WITH (ACUTE) LOWER RESP INFCT 2020-10-02 16:56 TACHYCARDIA, UNSPECIFIED [facility] 2020-10-02 16:56 HEPATOMEGALY, NOT ELSEWHERE [facility] CLASSIFIED 2020-10-02 16:56 ELEVATION OF LEVELS OF LIVER [facility] TRANSAMINASE LEVELS 2020-10-02 16:56 ABNORMAL LEVELS OF OTHER SERUM [facility] ENZYMES 2020-10-02 16:56 FRACTURE OF ONE RIB, LEFT SIDE, [facility] INIT FOR CLOS FX 2020-10-02 16:56 OVEREXERTION FROM PROLONGED [facility] STATIC OR AWKWARD POSTURES, INIT 2020-10-02 16:56 PERSONAL HISTORY OF [place] [facility] LYMPHOMA 2020-10-02 16:56 ACQUIRED ABSENCE OF SPLEEN [facility] 2020-10-02 16:56 ELEVATED WHITE BLOOD CELL COUNT, [facility] UNSPECIFIED 2020-10-02 16:56 NICOTINE DEPENDENCE, CIGARETTES, [facility] UNCOMPLICATED 2020-10-02 16:56 MULT SUBSEGMENTAL PULMON EMBOLI [facility] WITHOUT ACUTE COR 2020-10-02 16:56 CHR OBSTRUCTIVE PULMON DISEASE [facility] WITH (ACUTE) LOWER 2020-10-02 16:56 CHRONIC OBSTRUCTIVE PULMONARY [facility] DISEASE W (ACUTE) EX 2020-10-02 16:56 CHRONIC OBSTRUCTIVE PULMONARY [facility] DISEASE W (ACUTE) EXACERBATION 2020-10-02 16:56 CHRONIC OBSTRUCTIVE PULMONARY [facility] DISEASE, UNSPECIFIED 2020-10-02 16:56 PLEURAL EFFUSION, NOT ELSEWHERE [facility] CLASSIFIED 2020-10-02 16:56 NONINFECTIVE GASTROENTERITIS AND [facility] COLITIS, UNSPECIF 2020-10-02 16:56 NONINFECTIVE GASTROENTERITIS AND [facility] COLITIS, UNSPECIFIED 2020-10-02 16:56 DVRTCLOS OF LG INT W/O formerly [facility] PERFORATION OR ABSCESS W/O 2020-10-02 16:56 DVRTCLOS OF LG INT W/O formerly [facility] PERFORATION OR ABSCESS W/O BLEEDING 2020-10-02 16:56 FATTY (CHANGE OF) LIVER, NOT [facility] ELSEWHERE CLASSIFIED 2020-10-02 16:56 ELEVATION OF LEVELS OF LACTIC [facility] ACID DEHYDROGENASE [ 2020-10-02 16:56 ELEVATION OF LEVELS OF LACTIC [facility] ACID DEHYDROGENASE [LDH] 2020-10-02 16:56 OVEREXERTION FROM PROLONGED [facility] STATIC OR AWKWARD POST 2020-10-[address] OR NOT [facility] APPLICABLE 2020-10-02 16:56 ACTIVITY, OTHER INVOLVING [facility] EXTERNAL MOTION 2020-10-11 10:21 NICOTINE DEPENDENCE, [facility] UNSPECIFIED, UNCOMPLICATED 2020-10-11 10:21 CHRONIC OBSTRUCTIVE PULMONARY [facility] DISEASE, UNSPECIFIED 2020-10-11 10:21 PLEURAL EFFUSION, NOT ELSEWHERE [facility] CLASSIFIED 2020-10-11 10:21 CORRECTION (CURRENT) USE OF [facility] ANTICOAGULANTS 2020-10-11 10:21 PERSONAL HISTORY OF PULMONARY [facility] EMBOLISM 2020-10-22 00:00:00 Hep C AB with Reflex [facility] 2020-10-22 00:00:00 Unspecified hypothyroidism [facility] 2020-10-22 00:00:00 Leukocytosis, unspecified [facility] 2020-10-22 00:00:00 Alcohol abuse, unspecified [facility] drinking behavior [facility] 2020-10-22 00:00:00 Other pulmonary embolism and [facility] infarction [facility] 2020-10-22 00:00:00 Other specified cardiac [facility] dysrhythmias [facility] 2020-10-22 00:00:00 Chronic airway obstruction, not idb [facility] Care elsewhere classified [facility] 2020-10-22 00:00:00 Unspecified pleural effusion [facility] 2020-10-22 00:00:00 Abdominal pain, unspecified site [facility] 2020-10-22 00:00:00 Other abnormal blood chemistry [facility] 2020-10-22 00:00:00 Closed fracture of six ribs [facility] 2020-10-22 00:00:00 COMPREHENSIVE METABOLIC PANEL [facility] 2020-10-22 00:00:00 B-BARREL COOPER [facility] 2020-10-22 00:00:00 CBC W/O Diff/Plt [facility] 2020-10-22 00:00:00 [facility] 2020-10[facility]22 00:00:00 Protime [facility] 2020-10-22 00:00:00 Hep B CAb Tot [facility] 2020-10-22 00:00:00 Hepatitis B Surface Antibody [facility] 2020-10-22 00:00:00 Hepatitis A, IgM [facility] 2020-10-22 00:00:00 Hepatitis B Surface Antigen [facility] 2020-10-22 00:00:00 Elevated white blood cell count, Located within [facility] unspecified [facility] 2020-10-22 00:00:00 Hypothyroidism, unspecified [facility] 2020-10-22 00:00:00 Alcohol abuse, uncomplicated [facility] 2020-10-22 00:00:00 Other pulmonary embolism without Located within [facility] acute cor pulmonale [facility] 2020-10-22 00:00:00 Chronic obstructive pulmonary [facility] disease, unspecified [facility] 2020-10-22 00:00:00 Pleural effusion, not elsewhere [facility] classified [facility] 2020-10-22 00:00:00 [facility], [facility] 2020-10-22 00:00:00 Shortness of breath [facility] 2020-10-22 00:00:00 Unspecified abdominal pain [facility] 2020-10-22 00:00:00 Abnormal levels of other serum [facility] enzymes [facility] 2020-10-22 00:00:00 Multiple fractures of ribs, left Located within [facility] side, sequela [facility] 2020-10-22 00:00:00 Sinus tachycardia [facility] 2020-10-22 00:00:00 Leukocytosis [facility] 2020-10-22 00:00:00 Chronic obstructive lung disease id [facility] 2020-10-22 00:00:00 Alcohol abuse [facility] 2020-10-22 00:00:00 Alcohol intake [facility] 2020-10-22 00:00:00 Liver enzymes abnormal [facility] 2020-10-22 00:00:00 Abdominal pain [facility] 2020-10-22 00:00:00 Health-related behavior [facility] 2020-10-22 00:00:00 Tobacco use and exposure [facility] 2020-10-22 00:00:00 Exercise [facility] 2020-10-22 00:00:00 Dyspnea [facility] 2020-10-22 00:00:00 Details of drug misuse behavior [facility] 2020-10-22 00:00:00 Hypothyroidism [facility] 2020-10-22 00:00:00 Little interest or pleasure in [facility] doing things? [facility] 2020-10-22 00:00:00 Feeling down, depressed, or [facility] hopeless? [facility] 2020-10-22 00:00:00 Current every day smoker [facility] 2020-10-22 00:00:00 Pulmonary embolism [facility] 2020-10-22 00:00:00 Pleural effusion [facility] 2020-10-22 00:00:00 Alcohol use [facility] 2020-10-22 00:00:00 Tobacco smoking status NHIS [facility] 2020-10-23 17:24 ELEVATED WHITE BLOOD CELL COUNT, [facility] UNSPECIFIED 2020-10-23 17:24 HYPOTHYROIDISM, UNSPECIFIED [facility] 2020-10-23 17:24 ALCOHOL ABUSE, UNCOMPLICATED [facility] 2020-10-23 17:24 CHRONIC OBSTRUCTIVE PULMONARY [facility] DISEASE, UNSPECIFIED 2020-10-23 17:24 TACHYCARDIA, UNSPECIFIED [facility] 2020-10-23 17:24 SHORTNESS OF BREATH [facility] 2020-10-23 17:24 UNSPECIFIED ABDOMINAL PAIN [facility] 2020-10-23 17:24 ABNORMAL LEVELS OF OTHER SERUM [facility] ENZYMES 2020-10-23 17:24 PERSONAL HISTORY OF PULMONARY [facility] EMBOLISM Allergies date description facility [facility] CIPROFLOXACIN [facility] CLARITHROMYCIN [facility] CLINDAMYCIN [facility] GABAPENTIN [facility] LEVOFLOXACIN [facility] PENICILLIN V POTASSIUM [facility] PHENOBARBITAL [facility] PR[facility]NISONE [facility] ROFECOXIB [facility] TETRACYCLINE [facility] VENLAFAXINE [facility] CEFUROXIME AXETIL [facility] CEPHALEXIN [facility] LIDOCAINE-EPINEPHRINE [facility] NO KNOWN ENVIRONMENTAL ALLERGIES [facility] NSAIDS [facility] SULFA ANTIBIOTICS [facility] Amoxicillin [facility] Clavulanic Acid [facility] Insulin Glargine [facility] ADHESIVE [facility] ALENDRONATE [facility] CODEINE [facility] NIACIN [facility] COCONUT [facility] PEANUT [facility] TREE NUTS [facility] WHEAT [facility] NO ALLERGY INFORMATION AVAILABLE [facility] PENICILLINS [facility] NO KNOWN ALLERGIES [facility] LATEX [facility] FOOD [facility] MORPHINE [facility] CODEINE [facility] OXYCODONE [facility] PROPOXYPHENE [facility] IBUPROFEN [facility] NAPROXEN [facility] ETODOLAC [facility] AMOXICILLIN [facility] PAROXETINE [facility] CORTISONE [facility] ROFECOXIB [facility] IODINE [facility] LATEX [facility] WASP VENOM [facility] No Known Drug [facility]ergies [facility] No Known Drug Allergies [facility] Medications date description facility 2020-10-22 00:00:00 null All 2020-10-22 00:00:00 null All 2020-10-22 00:00:00 null All 2020-10-22 00:00:00 null All 2020-10-22 00:00:00 APIXABAN All 2020-10-22 00:00:00 LEVOTHYROXINE SODIUM All 2020-10-22 00:00:00 APIXABAN All 2020-10-22 00:00:00 LEVOTHYROXINE SODIUM All 2020-10-22 00:00:00 null [facility] 2020-10-22 00:00:00 null [facility] 2020-10-22 00:00:00 null [facility] 2020-10-22 00:00:00 null [facility] 2020-10-22 00:00:00 null [facility] 2020-10-22 00:00:00 null [facility] 2020-10-22 00:00:00 null [facility] 2020-10-22 00:00:00 null [facility] 2020-10-22 00:00:00 null [facility] 2020-10-22 00:00:00 null [facility] 2020-10-22 00:00:00 null [facility] 2020-10-22 00:00:00 null [facility] 2020-10-22 00:00:00 APIXABAN [facility] 2020-10-22 00:00:00 FUROSEMIDE [facility] 2020-10-22 00:00:00 LEVOTHYROXINE SODIUM [facility] 2020-10-22 00:00:00 LEVOTHYROXINE SODIUM [facility] 2020-10-22 00:00:00 OXYCODONE HCL [facility] 2020-10-22 00:00:00 TIOTROPIUM BROMIDE MONOHYDRATE [facility] 2020-10-22 00:00:00 OXYCODONE HCL [facility] 2020-10-22 00:00:00 APIXABAN [facility] 2020-10-22 00:00:00 FUROSEMIDE [facility] 2020-10-22 00:00:00 TIOTROPIUM BROMIDE MONOHYDRATE [facility] 2020-10-22 00:00:00 LEVOTHYROXINE SODIUM [facility] 2020-10-22 00:00:00 LEVOTHYROXINE SODIUM [facility] Results Social History date description facility 2020-10-22 00:00:00 [facility] date description facility 2020-10-22 00:00:00 Current [facility] date description facility [id number]
[2020-10-24 13:37] LABS: HEPATITIS B SURFACE ANTIGEN NON-REACTIVE (NON-REACTIVE); HEPATITIS C ANTIBODY NON-REACTIVE (NON-REACTIVE)
== END 2020-10-23 17:25 | disposition home or self-care (01) ==
LOC: LAB 17:24
PROVIDERS: ATTEND Physician Assistant
DX: E03.9 Hypothyroidism, unspecified (principal); R00.0 Tachycardia, unspecified; R10.9 Unspecified abdominal pain; R74.8 Abnormal levels of other serum enzymes; D72.829 Elevated white blood cell count, unspecified; F10.10 Alcohol abuse, uncomplicated; J90 Pleural effusion, not elsewhere classified; J44.9 Chronic obstructive pulmonary disease, unspecified; R06.02 Shortness of breath; Z86.711 Personal history of pulmonary embolism
CPT/HCPCS: 36415; 80053; 83880; 85027; 85610; 86317; 86704; 86709; 86803; 87340

== ENCOUNTER 2020-10-28 05:58 | Outpatient (CLI) | payer MEDICARE | END 2020-10-28 05:59 | disposition E | LOC: EMS 05:58 | PROVIDERS: ATTEND Surgery ==